=== PATIENT | male | born 1990 | race Two or more races ===

== ENCOUNTER 2021-04-19 23:41 | Inpatient (IN) | payer OTHER, SELFPAY ==
--- NOTE | ~2021-04-19 | XR_ITS ---
EXAMINATION: XR CHEST CLINICAL INFORMATION: Chest pain COMPARISON: Previous chest x-ray most recent December 2018 TECHNIQUE: 2 views of the chest were obtained. FINDINGS: No significant abnormality is noted involving the heart, lungs, mediastinum, bony thorax or soft tissues. XR/XR chest 2V IMPRESSION: Unremarkable examination.
[2021-04-20] MEDS: hydrOXYzine HCL 25 MG TABLET PO ×2 (01:38→11:57)
[2021-04-20] MEDS: Nicotine Polacrilex 2 MG GUM 4 MG BUCCAL ×4 (01:41→14:50)
--- NOTE | 2021-04-20 02:55 | PC.ADMIT ---
30 year old male arrived at 23:50 via stretcher from [facility] on a CV with suicidal ideation to walk into traffic. History of polysubstance abuse, major depression disorder, PTSD. 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 So now I find myself self-medicating and I need to fix my medications so I don't keep doing this. Patient reports increased depression over the past week relating to recent relapse on substances (cocaine, heroin). Stressors include chronic command auditory hallucinations, unstable housing, legal issues, trauma flashbacks, COVID-19 and of mother in 2019 (while patient was incarcerated). He is on methadone maintenance, 35mg, last dosed 04/19/21 per crisis report. Admission and medication orders in place. Safety checks initiated, will continue to monitor.
[2021-04-20 06:00] VITALS: BP 124/77; PULSE 65; RESP 18; TEMP 36.8; O2SAT 100
[2021-04-20] MEDS: Gabapentin 600 MG TABLET PO ×2 (14:49→21:30)
[2021-04-20] MEDS: cloNIDine HCL 0.1 MG TABLET PO ×2 (14:49→21:31)
[2021-04-20] MEDS: methADONE HCl 20 MG/2 ML ORAL.CONC 35 MG PO (15:13)
[2021-04-20] MEDS: Amphetamine Mixed Salts 10 MG TABLET PO (15:13)
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
[2021-04-20 18:00] VITALS: BP 110/68; PULSE 62; RESP 16; TEMP 36.6; O2SAT 100
[2021-04-20] MEDS: Nicotine Polacrilex 2 MG GUM BUCCAL (19:17)
[2021-04-20] MEDS: QUEtiapine Fumarate 50 MG TABLET PO (20:02)
[2021-04-20 21:31] VITALS: BP 109/69; PULSE 70
[2021-04-20] MEDS: QUEtiapine Fumarate 25 MG TABLET PO (21:31)
[2021-04-20] MEDS: Lithium Carbonate 300 MG CAPSULE PO (21:55)
--- NOTE | 2021-04-21 | ECG_ITS ---
Test Reason : detox/atypical use Blood Pressure : / mmHG Vent. Rate : 051 BPM Atrial Rate : 051 BPM P-R Int : 172 ms QRS Dur : 088 ms QT Int : 430 ms P-R-T Axes : 027 010 020 degrees QTc Int : 396 ms Sinus bradycardia Early repolarization Otherwise normal ECG When compared with ECG of 09-DEC-2018 09:49, T wave amplitude has increased in Anterior leads Referred By: Lu Rebolledo Electronically Signed By:MICHELLE BURNETT
--- NOTE | 2021-04-21 | ECG_ITS ---
Test Reason : CHEST PAIN Blood Pressure : / mmHG Vent. Rate : 048 BPM Atrial Rate : 048 BPM P-R Int : 138 ms QRS Dur : 084 ms QT Int : 414 ms P-R-T Axes : 033 000 015 degrees QTc Int : 369 ms Sinus bradycardia Moderate voltage criteria for LVH, may be normal variant Borderline ECG When compared with ECG of 21-APR-2021 07:35, No significant change was found Referred By: Lu Rebolledo Electronically Signed By:MICHELLE BURNETT
[2021-04-21 06:00] VITALS: BP 92/52; PULSE 52; RESP 16; TEMP 36.1; O2SAT 98
[2021-04-21 08:55] LABS: Estimated Average Glucose 94 mg/dL; Hemoglobin A1c % 4.9 %
[2021-04-21 08:59] LABS: Lithium 0.16 mmol/L (0.60-1.20)
[2021-04-21] MEDS: methADONE HCl 20 MG/2 ML ORAL.CONC 40 MG PO (08:59)
[2021-04-21] MEDS: Lidocaine 4 % Patch ADH..PATCH 1 PATCH TRANSDERMA (09:01)
[2021-04-21] MEDS: Ergocalciferol (Vitamin D2) 1,250 MCG CAPSULE 1250 MCG PO (09:01)
[2021-04-21] MEDS: Lithium Carbonate 300 MG CAPSULE PO ×3 (09:02→22:07)
[2021-04-21] MEDS: Sertraline HCL 50 MG TABLET PO (09:02)
[2021-04-21 09:03] VITALS: BP 102/64; PULSE 62
[2021-04-21] MEDS: Gabapentin 600 MG TABLET PO ×3 (09:03→22:07)
[2021-04-21] MEDS: cloNIDine HCL 0.1 MG TABLET PO ×3 (09:03→22:07)
[2021-04-21] MEDS: Amphetamine Mixed Salts 10 MG TABLET PO ×2 (09:03→13:12)
[2021-04-21 09:09] LABS: Alanine Aminotransferase 22 U/L (0-40); Albumin Level 4.8 g/dL (3.5-5.0); Alkaline Phosphatase 112 U/L (39-117); Anion Gap 11 (12-20); Aspartate Amino Transferase 19 U/L (5-37); Bilirubin Total 0.5 mg/dL (0.0-1.0); Blood Urea Nitrogen 11 mg/dL (9-16); Calcium 10.6 mg/dL (8.4-10.2); Carbon Dioxide 31 mmol/L (22-29); Chloride 101 mmol/L (96-108); Cholesterol 245 mg/dL; Estimated Glomerular Filt Rate > 60; Glucose Random 92 mg/dL (60-115); HDL Cholesterol 41 mg/dL; LDL Cholesterol Calculated 165 mg/dl; Potassium 4.8 mmol/L (3.3-5.1); Sodium 138 mmol/L (135-145); Total Protein 7.9 g/dL (6.5-8.0); Triglycerides 199 mg/dL
[2021-04-21] MEDS: Nicotine Polacrilex 2 MG GUM 4 MG BUCCAL ×2 (09:14→13:12)
[2021-04-21 09:27] LABS: Thyroid Stimulating Hormone 1.77 uIU/mL (0.32-4.0); Vitamin D 25-OH Total 21.8 ng/mL (>30)
[2021-04-21 09:29] LABS: HBS Num1 40.53 mIU/mL (0-7.99); HBc Num1 0.11 S/CO (0.00-0.79); HBsAGNum1 0.21 S/CO (0.00-0.99); HIV AB/AG Nonreactive (Nonreactive); Hepatitis B Core Antibody Nonreactive (Nonreactive); Hepatitis B Surface Antigen Negative (Negative); ~HepC Num1 0.16 S/CO (0.00-0.79); ~Hepatitis B Surface Antibody REACTIVE (Nonreactive); ~Hepatitis C Antibody Nonreactive (Nonreactive)
[2021-04-21 11:11] LABS: Folate 11.8 ng/mL (> or = 4.0); Vitamin B12 534 pg/mL (200-900)
[2021-04-21 14:51] VITALS: BP 107/60; PULSE 76
--- NOTE | 2021-04-21 16:14 | P.PNPSI_ITS ---
Subjective Subjective Date of Service: 04/21/21 Reason For Visit: Bipolar Disorder, ADHD, PTSD, Opioid, Cocaine use Subjective Notes: Conditional Voluntary Healthcare Proxy: No Guardianship: No Medical Problems Affecting Mental Status: No Interim History: Tolerating Methadone titration. Reports some improvement in sleep with increase in Seroquel. Discussed some of his addiction history and his goals for the future. Review of medication regime- will continue current regime. Medication Compliance: Yes Side effects from medications: No Attending Groups: Yes Review of Systems Acute medical concerns: No Medical Review of Systems: unchanged Review of Systems Review of Systems Yes all other systems are reviewed and are negative Constitutional: Reports anorexia, Reports difficulty sleeping and Reports weight loss Eyes: Reports no additional eye complaints Reports system reviewed and no additional complaints, except as documented and Reports Normal hearing present Cardiovascular: Reports no additional cardiovascular complaints Respiratory: Reports no additional respiratory complaints Gastrointestinal: Reports no additional gastrointestinal complaints Genitourinary: Reports no additional male genitourinary complaints Musculoskeletal: Reports no additional musculoskeletal complaints Reports system reviewed and no additional complaints, except as documented, Reports Normal hearing present and Reports behavioral changes Psychiatric: Reports abnormal sleep pattern, Reports anxiety, Reports behavioral changes, Reports change in appetite, Reports depression, Reports difficulty concentrating, Reports auditory hallucinations, Reports hopelessness, Reports irritability, Reports anhedonia, Reports mood swings, Reports panic attacks and Reports suicidal ideation Endocrine: Reports no additional endocrine complaints Hematologic/Lymphatic: Reports no additional hematologic/lymphatic complaints Allergic/Immunologic: Reports no additional allergic/immunologic complaints Mental Status Exam Mental Status Exam Patient Appearance: Appropriate Patient Orientation: Person, Place, Time and Situation Level of Consciousness: Appropriate and Alert Patient Behavior: Appropriate, Talkative, Cooperative and Good Eye Contact Mood Description: Depressed, Fearful and Anxious Affect Description: Flat Patient Cognition Impaired: No Ability to Follow Directions: Good Speech Pattern: Clear, Appropriate and Spontaneous Speech Memory Description: Episodic Impaired Hallucinations: Auditory Delusions: Paranoid Ideation and Present Perceptual Disturbances: Depersonalization and Derealization Thought Process: Distracted and Rumination Thought Content: positive for Perseveration and positive for Suicidal Ideation Depressive Symptoms: Increased Anxiety, Insomnia, Diff. Making Decisions, Di fficulty Sleeping, Changes in Appetite, Feelings of Worthlessness, Hopelessness, Isolating-Friends/Family, Increased Fatigue, Thoughts of /Suicide, Loss of Energy and Difficulty Concentrating Judgement: Fair Diagnostics Vital Signs (24Hr): Vital Signs - 24 hr 04/20/21 18:00 04/20/21 21:31 04/21/21 06:00 Temperature 98 F 97 F Pulse Rate 62 70 52 Respiratory Rate 16 16 Blood Pressure 110/68 109/69 92/52 L Pulse Oximetry 100 98 04/21/21 09:03 04/21/21 14:51 Temperature Pulse Rate 62 76 Respiratory Rate Blood Pressure 102/64 107/60 Pulse Oximetry Labs Results: 04/21/21 17:52 04/21/21 08:09 Labs: Laboratory Results - last 48 hr 04/21/21 04/21/21 04/21/21 08:08 08:08 08:08 Sodium Potassium Chloride Carbon Dioxide Anion Gap BUN Creatinine Estim Creat Clear Calc Estimated GFR Random Glucose Estimat Average Glucose 94 Hemoglobin A1c % 4.9 Calcium Total Bilirubin AST ALT Alkaline Phosphatase Total Protein Albumin Triglycerides Cholesterol LDL Cholesterol, Calc HDL Cholesterol Vitamin B12 534 25-OH Vitamin D Total Folate 11.8 TSH [place] [facility] Hep Bs Antigen Negative Hep Bs Antibody REACTIVE Hep B Core Total Ab Nonreactive Hepatitis C Ab (EIA) Nonreactive HIV 1&2 Ab/P24 Ag 4thGn Nonreactive 04/21/21 04/21/21 08:09 08:09 Sodium 138 Potassium 4.8 Chloride 101 Carbon Dioxide 31 H Anion Gap 11 L BUN 11 Creatinine 0.83 Estim Creat Clear Calc TNP Estimated GFR > 60 Random Glucose 92 Estimat Average Glucose Hemoglobin A1c % Calcium 10.6 H Total Bilirubin 0.5 AST 19 ALT 22 Alkaline Phosphatase 112 Total Protein 7.9 Albumin 4.8 Triglycerides 199 Cholesterol 245 LDL Cholesterol, Calc 165 HDL Cholesterol 41 Vitamin B12 25-OH Vitamin D Total 21.8 Folate TSH 1.77 [place] [facility] 0.16 L Hep Bs Antigen Hep Bs Antibody Hep B Core Total Ab Hepatitis C Ab (EIA) HIV 1&2 Ab/P24 Ag 4thGn Medications Medications Current Medications Generic Name Dose Route Start Last Admin Trade Name Freq PRN Reason Stop Dose Admin Acetaminophen 650 mg 04/20/21 00:53 Acetaminophen 325 Mg Tablet PO Q6H PRN Headache/Pain Mild Scale (1-3) Al Hydroxide/Mg Hydroxide 30 ml 04/20/21 00:53 Magnesium Hydrox/Alum Hydrox 30 Ml Oral.Susp PO Q6H PRN Heartburn/Nausea Amphetamine/Dextroamphetamine 10 mg 04/21/21 08:00 04/21/21 13:12 Amphetamine Mixed Salts 10 Mg Tablet PO 10 mg 0800,1300 RYAN Administration Clonidine HCl 0.1 mg 04/20/21 15:00 04/21/21 14:51 Clonidine Hcl 0.1 Mg Tablet PO 0.1 mg TID RYAN Administration Protocol Dicyclomine HCl 10 mg 04/20/21 13:32 Dicyclomine Hcl 10 Mg Capsule PO TIDAC PRN withdrawl Ergocalciferol 1,250 mcg 04/21/21 09:00 04/21/21 09:01 Ergocalciferol (Vitamin D2) 1,250 Mcg Capsule PO 1,250 mcg Th@0900 RYAN Administration Gabapentin 600 mg 04/20/21 15:00 04/21/21 14:40 Gabapentin 600 Mg Tablet PO 600 mg TID RYAN Administration Hydroxyzine HCl 25 mg 04/20/21 00:53 04/20/21 11:57 Hydroxyzine Hcl 25 Mg Tablet PO 25 mg Q6H PRN Administration Anxiety Lidocaine 1 patch 04/21/21 09:00 04/21/21 09:01 Lidocaine 4 % Patch Adh..Patch TRANSDERMA 1 patch DAILY RYAN Administration Protocol [place] [facility] Carbonate 300 mg 04/20/21 21:00 04/21/21 14:39 [place] [facility] Carbonate 300 Mg Capsule PO 300 mg TID RYAN Administration Magnesium Hydroxide 30 ml 04/20/21 00:53 Milk Of Magnesia 30 Ml Oral.Susp PO DAILY PRN Constipation Nicotine 21 mg 04/20/21 09:00 04/21/21 09:05 Nicotine 21 Mg Patch.Td24 TRANSDERMA Not Given DAILY RYAN Nicotine Polacrilex 4 mg 04/20/21 00:53 04/21/21 13:12 Nicotine Polacrilex 2 Mg Gum BUCCAL 4 mg Q2H PRN Administration Nicotine Cravings Nicotine Polacrilex 2 mg 04/20/21 16:45 04/20/21 19:17 Nicotine Polacrilex 2 Mg Gum BUCCAL 2 mg Q1H PRN Administration Nicotine Cravings Quetiapine Fumarate 25 mg 04/20/21 21:00 04/20/21 21:31 Quetiapine Fumarate 25 Mg Tablet PO 25 mg BEDTIME RYAN Administration Quetiapine Fumarate 50 mg 04/20/21 21:00 04/20/21 20:02 Quetiapine Fumarate 50 Mg Tablet PO 50 mg BEDTIME RYAN Administration Quetiapine Fumarate 25 mg 04/20/21 19:50 Quetiapine Fumarate 25 Mg Tablet PO Q4H PRN anxiety/restlessness Sertraline HCl 50 mg 04/21/21 09:00 04/21/21 09:02 Sertraline Hcl 50 Mg Tablet PO 50 mg DAILY RYAN Administration Trazodone HCl 50 mg 04/20/21 00:53 Trazodone Hcl 50 Mg Tablet PO BEDTIME PRN Insomnia Trolamine Salicylate/Aloe Vera 1 appl 04/20/21 17:13 Trolamine Salicylate 10%/Aloe Cream 35.4 Gm TOPICAL TID PRN joint pain Valacyclovir HCl 500 mg 04/21/21 09:00 04/21/21 09:03 Valacycyclovir Hcl 500 Mg Tablet PO 500 mg DAILY RYAN Administration Allergies Allergies Allergy/AdvReac Type Severity Reaction Status Date / Time aspirin [ASA] AdvReac Unknown ABD UPSET Unverified 04/22/20 16:04 Assessment & Plan Assessment & Plan (1) Bipolar disorder: Status: Acute Code(s): F31.9 - Bipolar disorder, unspecified (2) PTSD (post-traumatic stress disorder): Status: Acute Code(s): F43.10 - Post-traumatic stress disorder, unspecified (3) Opioid use disorder, severe, in early remission, on maintenance therapy: Status: Acute Code(s): F11.21 - Opioid dependence, in remission (4) Cocaine use disorder: Status: Acute Code(s): F14.10 - Cocaine abuse, uncomplicated (5) ADHD: Status: Acute Code(s): F90.9 - Attention-deficit hyperactivity disorder, unspecified type Assessment and Plan: Continue current regime [place] [facility] level is low-continue titration. Greater than 50% of the session was spent on counseling and/or coordination of care Patient educated on: medication risk/benefits and therapeutic strategies Informed Consent: understands Reason for contiued inpatient stay Substantial Risk for: harm to self, inability to function and rapid decompensation
[2021-04-21 17:57] LABS: MANUAL DIFF FLAG NO
[2021-04-21] MEDS: OLANZapine 5 MG TABLET PO (17:59)
[2021-04-21] MEDS: Nicotine Polacrilex 2 MG GUM BUCCAL (17:59)
[2021-04-21 18:00] VITALS: BP 116/67; PULSE 59; RESP 16; TEMP 36.3
[2021-04-21] MEDS: LORazepam 1 MG TABLET PO (18:01)
[2021-04-21 22:07] VITALS: BP 112/56; PULSE 59
[2021-04-21] MEDS: QUEtiapine Fumarate 50 MG TABLET PO (22:07)
[2021-04-22 00:45] LABS: Basophils Absolute Auto 0.1 X10*3/uL (0.0-0.2); Basophils Percent Auto 0.9 % (0-2); Eosinophils Absolute Auto 0.3 X10*3/uL (0.0-0.4); Eosinophils Percent Auto 4.5 % (0-4); Hematocrit 44.5 % (42-52); Imm Gran Abs Auto 0.01 X10*3/uL (0.00-0.03); Imm Gran Pct Auto 0.2 % (0.0-0.4); Lymphocytes Absolute Auto 1.7 X10*3/uL (1.2-4.9); Lymphocytes Percent Auto 29.1 % (20-40); Mean Corpuscular HGB Conc 31.5 g/dl (31.0-36.0); Mean Corpuscular Hemoglobin 29.9 pg (27.0-33.0); Mean Corpuscular Volume 94.9 fL (80-98); Mean Platelet Volume 11.2 fL (9.4-12.4); Monocytes Absolute Auto 0.3 X10*3/uL (0.1-1.2); Monocytes Percent Auto 5.4 % (2-11); Neutrophils Absolute Auto 3.4 X10*3/uL (2.0-8.3); Neutrophils Percent Auto 59.9 % (45-73); Platelet Count 272 X10*3/uL (160-400); Red Blood Count 4.69 X10*6/uL (4.60-5.80); Red Cell Distribution Width 13.7 % (11.0-16.0); White Blood Count 5.7 X10*3/uL (4.8-10.8)
[2021-04-22 06:00] VITALS: BP 168/97; PULSE 73; RESP 16; TEMP 36.5; O2SAT 98
[2021-04-22] MEDS: Amphetamine Mixed Salts 10 MG TABLET PO ×2 (08:21→12:44)
[2021-04-22] MEDS: Sertraline HCL 50 MG TABLET PO (08:21)
[2021-04-22] MEDS: Gabapentin 600 MG TABLET PO ×3 (08:21→20:04)
[2021-04-22] MEDS: Lithium Carbonate 300 MG CAPSULE PO ×3 (08:21→20:04)
[2021-04-22] MEDS: Lidocaine 4 % Patch ADH..PATCH 1 PATCH TRANSDERMA (08:22)
[2021-04-22] MEDS: Nicotine 21 MG PATCH.TD24 TRANSDERMA (08:22)
[2021-04-22 08:44] VITALS: BP 88/58; PULSE 62
--- NOTE | 2021-04-22 09:06 | P.PNPSI_ITS ---
Subjective Subjective Date of Service: 04/23/21 Reason For Visit: Bipolar Disorder, ADHD, PTSD, Opioid, Cocaine use Subjective Notes: Conditional Voluntary Healthcare Proxy: No Guardianship: No Medical Problems Affecting Mental Status: No Interim History: Review of anxiety increase on 04/21. Pt describes shaking, sweating, fidgety feeling, anxiety, like all things were coming to a head. Rep orts Olanzapine was helpful-no thoughts on a possible precipitant to this sx. Reports sleep is improving. Discussed possiblity of replacing Seroquel with Olanzapine for increased efficacy during [place] titration. Pt concurs and we will trial. Medication Compliance: Yes Side effects from medications: No Attending Groups: Yes Review of Systems Acute medical concerns: No Medical Review of Systems: unchanged Review of Systems Review of Systems Yes all other systems are reviewed and are negative Constitutional: Reports anorexia, Reports difficulty sleeping and Reports weight loss Eyes: Reports no additional eye complaints Reports system reviewed and no additional complaints, except as documented and Reports Normal hearing present Cardiovascular: Reports no additional cardiovascular complaints Respiratory: Reports no additional respiratory complaints Gastrointestinal: Reports no additional gastrointestinal complaints Genitourinary: Reports no additional male genitourinary complaints Musculoskeletal: Reports no additional musculoskeletal complaints Reports system reviewed and no additional complaints, except as documented, Reports Normal hearing present and Reports behavioral changes Psychiatric: Reports abnormal sleep pattern, Reports anxiety, Reports behavioral changes, Reports change in appetite, Reports depression, Reports difficulty concentrating, Reports auditory hallucinations, Reports hopelessness, Reports irritability, Reports anhedonia, Reports mood swings, Reports panic attacks and Reports suicidal ideation Endocrine: Reports no additional endocrine complaints Hematologic/Lymphatic: Reports no additional hematologic/lymphatic complaints Allergic/Immunologic: Reports no additional allergic/immunologic complaints Mental Status Exam Mental Status Exam Patient Appearance: Appropriate Patient Orientation: Person, Place, Time and Situation Level of Consciousness: Appropriate and Alert Patient Behavior: Appropriate, Talkative, Cooperative and Good Eye Contact Mood Description: Depressed, Fearful and Anxious Affect Description: Flat Patient Cognition Impaired: No Ability to Follow Directions: Good Speech Pattern: Clear, Appropriate and Spontaneous Speech Memory Description: Episodic Impaired Hallucinations: Auditory Delusions: Paranoid Ideation and Present Perceptual Disturbances: Depersonalization and Derealization Thought Process: Distracted and Rumination Thought Content: positive for Perseveration and positive for Suicidal Ideation Depressive Symptoms: Increased Anxiety, Insomnia, Diff. Making Decisions, Difficulty Sleeping, Changes in Appetite, Feelings of Worthlessness, Hopelessness, Isolating-Friends/Family, Increased Fatigue, Thoughts of De ath/Suicide, Loss of Energy and Difficulty Concentrating Judgement: Fair Diagnostics Vital Signs (24Hr): Vital Signs - 24 hr 04/21/21 14:51 04/21/21 18:00 04/21/21 22:07 Temperature 97.3 F Pulse Rate 76 59 59 Respiratory Rate 16 Blood Pressure 107/60 116/67 112/56 L Pulse Oximetry 04/22/21 06:00 04/22/21 08:44 Temperature 97.7 F Pulse Rate 73 62 Respiratory Rate 16 Blood Pressure 168/97 H 88/58 L Pulse Oximetry 98 Labs Results: 04/21/21 17:52 04/21/21 08:09 Labs: Laboratory Results - last 48 hr 04/21/21 04/21/21 04/21/21 08:08 08:08 08:08 WBC RBC Hgb Hct MCV MCH MCHC RDW Plt Count MPV Immature Gran % (Auto) Neut % (Auto) Lymph % (Auto) [place] % (Auto) Eos % (Auto) Baso % (Auto) Lymph # (Auto) [place] # (Auto) Eos # (Auto) Baso # (Auto) Abs Immat Gran (auto) Absolute Neuts (auto) Absolute Nucleated RBC Nucleated RBC % (auto) Sodium Potassium Chloride Carbon Dioxide Anion Gap BUN Creatinine Estim Creat Clear Calc Estimated GFR Random Glucose Estimat Average Glucose 94 Hemoglobin A1c % 4.9 Calcium Total Bilirubin AST ALT Alkaline Phosphatase Total Creatine Kinase Total Protein Albumin Triglycerides Cholesterol LDL Cholesterol, Calc HDL Cholesterol Vitamin B12 534 25-OH Vitamin D Total Folate 11.8 TSH [place] Hep Bs Antigen Negative Hep Bs Antibody REACTIVE Hep B Core Total Ab Nonreactive Hepatitis C Ab (EIA) Nonreactive HIV 1&2 Ab/P24 Ag 4thGn Nonreactive 04/21/21 04/21/21 04/21/21 08:09 08:09 17:52 WBC 5.7 RBC 4.69 Hgb 14.0 Hct 44.5 MCV 94.9 MCH 29.9 MCHC 31.5 RDW 13.7 Plt Count 272 MPV 11.2 Immature Gran % (Auto) 0.2 Neut % (Auto) 59.9 Lymph % (Auto) 29.1 [place] % (Auto) 5.4 Eos % (Auto) 4.5 H Baso % (Auto) 0.9 Lymph # (Auto) 1.7 [place] # (Auto) 0.3 Eos # (Auto) 0.3 Baso # (Auto) 0.1 Abs Immat Gran (auto) 0.01 Absolute Neuts (auto) 3.4 Absolute Nucleated RBC 0.000 Nucleated RBC % (auto) 0.0 Sodium 138 Potassium 4.8 Chloride 101 Carbon Dioxide 31 H Anion Gap 11 L BUN 11 Creatinine 0.83 Estim Creat Clear Calc TNP Estimated GFR > 60 Random Glucose 92 Estimat Average Glucose Hemoglobin A1c % Calcium 10.6 H Total Bilirubin 0.5 AST 19 ALT 22 Alkaline Phosphatase 112 Total Creatine Kinase Total Protein 7.9 Albumin 4.8 Triglycerides 199 Cholesterol 245 LDL Cholesterol, Calc 165 HDL Cholesterol 41 Vitamin B12 25-OH Vitamin D Total 21.8 Folate TSH 1.77 [place] 0.16 L Hep Bs Antigen Hep Bs Antibody Hep B Core Total Ab Hepatitis C Ab (EIA) HIV 1&2 Ab/P24 Ag 4thGn 04/21/21 17:52 WBC RBC Hgb Hct MCV MCH MCHC RDW Plt Count MPV Immature Gran % (Auto) Neut % (Auto) Lymph % (Auto) [place] % (Auto) Eos % (Auto) Baso % (Auto) Lymph # (Auto) [place] # (Auto) Eos # (Auto) Baso # (Auto) Abs Immat Gran (auto) Absolute Neuts (auto) Absolute Nucleated RBC Nucleated RBC % (auto) Sodium Potassium Chloride Carbon Dioxide Anion Gap BUN Creatinine Estim Creat Clear Calc Estimated GFR Random Glucose Estimat Average Glucose Hemoglobin A1c % Calcium Total Bilirubin AST ALT Alkaline Phosphatase Total Creatine Kinase 62 Total Protein Albumin Triglycerides Cholesterol LDL Cholesterol, Calc HDL Cholesterol Vitamin B12 25-OH Vitamin D Total Folate TSH [place] Hep Bs Antigen Hep Bs Antibody Hep B Core Total Ab Hepatitis C Ab (EIA) HIV 1&2 Ab/P24 Ag 4thGn Medications Medications Current Medications Generic Name Dose Route Start Last Admin Trade Name Freq PRN Reason Stop Dose Admin Acetaminophen 650 mg 04/20/21 00:53 Acetaminophen 325 Mg Tablet PO Q6H PRN Headache/Pain Mild Scale (1-3) Al Hydroxide/Mg Hydroxide 30 ml 04/20/21 00:53 Magnesium Hydrox/Alum Hydrox 30 Ml Oral.Susp PO Q6H PRN Heartburn/Nausea Amphetamine/Dextroamphetamine 10 mg 04/21/21 08:00 04/22/21 08:21 Amphetamine Mixed Salts 10 Mg Tablet PO 10 mg 0800,1300 RYAN Administration Clonidine HCl 0.1 mg 04/20/21 15:00 04/22/21 08:44 Clonidine Hcl 0.1 Mg Tablet PO Not Given TID RYAN Protocol Dicyclomine HCl 10 mg 04/20/21 13:32 Dicyclomine Hcl 10 Mg Capsule PO TIDAC PRN withdrawl Ergocalciferol 1,250 mcg 04/21/21 09:00 04/21/21 09:01 Ergocalciferol (Vitamin D2) 1,250 Mcg Capsule PO 1,250 mcg Th@0900 RYAN Administration Gabapentin 600 mg 04/20/21 15:00 04/22/21 08:21 Gabapentin 600 Mg Tablet PO 600 mg TID RYAN Administration Hydroxyzine HCl 25 mg 04/20/21 00:53 04/20/21 11:57 Hydroxyzine Hcl 25 Mg Tablet PO 25 mg Q6H PRN Administration Anxiety Lidocaine 1 patch 04/21/21 09:00 04/22/21 08:22 Lidocaine 4 % Patch Adh..Patch TRANSDERMA 1 patch DAILY RYAN Administration Protocol [place] Carbonate 300 mg 04/20/21 21:00 04/22/21 08:21 [place] Carbonate 300 Mg Capsule PO 300 mg TID RYAN Administration Magnesium Hydroxide 30 ml 04/20/21 00:53 Milk Of Magnesia 30 Ml Oral.Susp PO DAILY PRN Constipation Methadone HCl 40 mg 04/23/21 09:00 Methadone Hcl 20 Mg/2 Ml Oral.Conc PO 04/23/21 09:01 DAILY RYAN Methadone HCl 45 mg 04/24/21 09:00 Methadone Hcl 20 Mg/2 Ml Oral.Conc PO DAILY RYAN Nicotine 21 mg 04/20/21 09:00 04/22/21 08:22 Nicotine 21 Mg Patch.Td24 TRANSDERMA 21 mg DAILY RYAN Administration Nicotine Polacrilex 4 mg 04/20/21 00:53 04/21/21 13:12 Nicotine Polacrilex 2 Mg Gum BUCCAL 4 mg Q2H PRN Administration Nicotine Cravings Nicotine Polacrilex 2 mg 04/20/21 16:45 04/21/21 17:59 Nicotine Polacrilex 2 Mg Gum BUCCAL 2 mg Q1H PRN Administration Nicotine Cravings Quetiapine Fumarate 50 mg 04/20/21 21:00 04/21/21 22:07 Quetiapine Fumarate 50 Mg Tablet PO 50 mg BEDTIME RYAN Administration Quetiapine Fumarate 25 mg 04/20/21 19:50 Quetiapine Fumarate 25 Mg Tablet PO Q4H PRN anxiety/restlessness Sertraline HCl 50 mg 04/21/21 09:00 04/22/21 08:21 Sertraline Hcl 50 Mg Tablet PO 50 mg DAILY RYAN Administration Trazodone HCl 50 mg 04/20/21 00:53 Trazodone Hcl 50 Mg Tablet PO BEDTIME PRN Insomnia Trolamine Salicylate/Aloe Vera 1 appl 04/20/21 17:13 Trolamine Salicylate 10%/Aloe Cream 35.4 Gm TOPICAL TID PRN joint pain Valacyclovir HCl 500 mg 04/21/21 09:00 04/22/21 08:21 Valacycyclovir Hcl 500 Mg Tablet PO 500 mg DAILY RYAN Administration Allergies Allergies Allergy/AdvReac Type Severity Reaction Status Date / Time aspirin [ASA] AdvReac Unknown ABD UPSET Unverified 04/22/20 16:04 Assessment & Plan Assessment & Plan (1) Bipolar disorder: Status: Acute Code(s): F31.9 - Bipolar disorder, unspecified (2) PTSD (post-traumatic stress disorder): Status: Acute Code(s): F43.10 - Post-traumatic stress disorder, unspecified (3) Opioid use disorder, severe, in early remission, on maintenance therapy: Status: Acute Code(s): F11.21 - Opioid dependence, in remission (4) Cocaine use disorder: Status: Acute Code(s): F14.10 - Cocaine abuse, uncomplicated (5) ADHD: Status: Acute Code(s): F90.9 - Attention-deficit hyperactivity disorder, unspecified type Assessment and Plan: Discontinue Seroquel Olanzapine 5 mg hs and prn Lorazepam prn Greater than 50% of the session was spent on counseling and/or coordination of care Patient educated on: medication risk/benefits, substance abuse and therapeutic strategies Informed Consent: understands and further education needed Reason for contiued inpatient stay Substantial Risk for: harm to self, inability to function and rapid decompensation
[2021-04-22] MEDS: methADONE HCl 20 MG/2 ML ORAL.CONC 40 MG PO (09:34)
--- NOTE | 2021-04-22 11:35 | MHC.RECOVSUP ---
? Reason for consult:Continuity of care o Current location:511 o Identified substance use concern: Heroin - Withdrawal - Support ? Intervention: o MAT started or to be started o Community resources provided o Harm reduction discussion ? Plan: o Patient to follow up with [facility] after discharge ? Additional information:Pt. given community resources, had a discussion on Harm reduction and MAT. PT. on MAT (Methadone) from [facility], pt. referred to [facility].
[2021-04-22 14:39] VITALS: BP 90/62; PULSE 70
[2021-04-22] MEDS: cloNIDine HCL 0.1 MG TABLET PO (14:39)
[2021-04-22] MEDS: LORazepam 1 MG TABLET PO (16:46)
[2021-04-22] MEDS: OLANZapine 5 MG TABLET PO ×2 (16:46→20:04)
[2021-04-22] MEDS: Nicotine Polacrilex 2 MG GUM BUCCAL (16:48)
[2021-04-22 18:27] VITALS: BP 100/55; PULSE 67; TEMP 36.6
[2021-04-23 06:00] VITALS: BP 110/58; PULSE 54; RESP 18; TEMP 35.8; O2SAT 99
[2021-04-23] MEDS: Nicotine 21 MG PATCH.TD24 TRANSDERMA (08:28)
[2021-04-23] MEDS: Lidocaine 4 % Patch ADH..PATCH 1 PATCH TRANSDERMA (08:28)
[2021-04-23 08:29] VITALS: BP 92/64; PULSE 62
[2021-04-23] MEDS: Lithium Carbonate 300 MG CAPSULE PO ×3 (08:29→20:29)
[2021-04-23] MEDS: Amphetamine Mixed Salts 10 MG TABLET PO ×2 (08:29→14:02)
[2021-04-23] MEDS: Sertraline HCL 50 MG TABLET PO (08:29)
[2021-04-23] MEDS: Gabapentin 600 MG TABLET PO ×3 (08:29→20:29)
[2021-04-23] MEDS: cloNIDine HCL 0.1 MG TABLET PO ×2 (08:29→14:03)
[2021-04-23] MEDS: methADONE HCl 20 MG/2 ML ORAL.CONC 40 MG PO (08:34)
--- NOTE | 2021-04-23 09:45 | P.PNPSI_ITS ---
Subjective Subjective Date of Service: 04/23/21 Reason For Visit: Bipolar Disorder, ADHD, PTSD, Opioid, Cocaine use Interim History: pt seen on 04/23 pt reports he's depressed with SI; he does not have plans or intentions but tears up talking about it. Pt says he hopes the new medications will start working soon as it's only been 2.5 days since on lithium. PT says the acuity on the unit is getting to him which he thinks influences his mood Mental Status Exam Mental Status Exam Patient Appearance: Well Grooomed Patient Orientation: Person, Place, Time and Situation Level of Consciousness: Awake and Appropriate Patient Behavior: Appropriate, Talkative and Cooperative Mood Description: Depressed and Anxious Affect Description: Anxious Ability to Follow Directions: Fair Speech Pattern: Clear and Appropriate Hallucinations: Auditory (intermittent) Delusions: Not Present Thought Process: Goal Oriented (can also be circumstantial) Thought Content: positive for Suicidal Ideation Judgement: Fair Diagnostics Vital Signs (24Hr): Vital Signs - 24 hr 04/22/21 14:39 04/22/21 18:27 04/23/21 06:00 Temperature 98 F 96.5 F L Pulse Rate 70 67 54 Respiratory Rate 18 Blood Pressure 90/62 100/55 L 110/58 L Pulse Oximetry 99 04/23/21 08:29 Temperature Pulse Rate 62 Respiratory Rate Blood Pressure 92/64 Pulse Oximetry Labs Results: 04/21/21 17:52 04/21/21 08:09 Labs: Laboratory Results - last 48 hr 04/21/21 04/21/21 04/21/21 08:08 08:08 17:52 WBC 5.7 RBC 4.69 Hgb 14.0 Hct 44.5 MCV 94.9 MCH 29.9 MCHC 31.5 RDW 13.7 Plt Count 272 MPV 11.2 Immature Gran % (Auto) 0.2 Neut % (Auto) 59.9 Lymph % (Auto) 29.1 [place] % (Auto) 5.4 Eos % (Auto) 4.5 H Baso % (Auto) 0.9 Lymph # (Auto) 1.7 [place] # (Auto) 0.3 Eos # (Auto) 0.3 Baso # (Auto) 0.1 Abs Immat Gran (auto) 0.01 Absolute Neuts (auto) 3.4 Absolute Nucleated RBC 0.000 Nucleated RBC % (auto) 0.0 Total Creatine Kinase Vitamin B12 534 Folate 11.8 Hep Bs Antigen Negative Hep Bs Antibody REACTIVE Hep B Core Total Ab Nonreactive Hepatitis C Ab (EIA) Nonreactive HIV 1&2 Ab/P24 Ag 4thGn Nonreactive 04/21/21 17:52 WBC RBC Hgb Hct MCV MCH MCHC RDW Plt Count MPV Immature Gran % (Auto) Neut % (Auto) Lymph % (Auto) [place] % (Auto) Eos % (Auto) Baso % (Auto) Lymph # (Auto) [place] # (Auto) Eos # (Auto) Baso # (Auto) Abs Immat Gran (auto) Absolute Neuts (auto) Absolute Nucleated RBC Nucleated RBC % (auto) Total Creatine Kinase 62 Vitamin B12 Folate Hep Bs Antigen Hep Bs Antibody Hep B Core Total Ab Hepatitis C Ab (EIA) HIV 1&2 Ab/P24 Ag 4thGn Medications Medications Current Medications Acetaminophen (Acetaminophen 325 Mg Tablet) 650 mg PO Q6H PRN PRN Reason: Headache/Pain Mild Scale (1-3) Al Hydroxide/Mg Hydroxide (Magnesium Hydrox/Alum Hydrox 30 Ml Oral.Susp) 30 ml PO Q6H PRN PRN Reason: Heartburn/Nausea Amphetamine/Dextroamphetamine (Amphetamine Mixed Salts 10 Mg Tablet) 10 mg PO 0800,1300 [facility] Last Admin: 04/23/21 08:29 Dose: 10 mg Documented by: Clonidine HCl (Clonidine Hcl 0.1 Mg Tablet) 0.1 mg PO TID [facility]; Protocol Last Admin: 04/23/21 08:29 Dose: 0.1 mg Documented by: Dicyclomine HCl (Dicyclomine Hcl 10 Mg Capsule) 10 mg PO TIDAC PRN PRN Reason: withdrawl Ergocalciferol (Ergocalciferol (Vitamin D2) 1,250 Mcg Capsule) 1,250 mcg PO Th@0900 [facility] Last Admin: 04/21/21 09:01 Dose: 1,250 mcg Documented by: Gabapentin (Gabapentin 600 Mg Tablet) 600 mg PO TID [facility] Last Admin: 04/23/21 08:29 Dose: 600 mg Documented by: Hydroxyzine HCl (Hydroxyzine Hcl 25 Mg Tablet) 25 mg PO Q6H PRN PRN Reason: Anxiety Last Admin: 04/20/21 11:57 Dose: 25 mg Documented by: Lidocaine (Lidocaine 4 % Patch Adh..Patch) 1 patch TRANSDERMA DAILY [facility]; Protocol Last Admin: 04/23/21 08:28 Dose: 1 patch Documented by: [place] Carbonate ([place] Carbonate 300 Mg Capsule) 300 mg PO TID [facility] Last Admin: 04/23/21 08:29 Dose: 300 mg Documented by: Lorazepam (Lorazepam 1 Mg Tablet) 1 mg PO Q6H PRN PRN Reason: agitation, anxiety Last Admin: 04/22/21 16:46 Dose: 1 mg Documented by: Magnesium Hydroxide (Milk Of Magnesia 30 Ml Oral.Susp) 30 ml PO DAILY PRN PRN Reason: Constipation Methadone HCl (Methadone Hcl 20 Mg/2 Ml Oral.Conc) 45 mg PO DAILY [facility] Nicotine (Nicotine 21 Mg Patch.Td24) 21 mg TRANSDERMA DAILY [facility] Last Admin: 04/23/21 08:28 Dose: 21 mg Documented by: Nicotine Polacrilex (Nicotine Polacrilex 2 Mg Gum) 4 mg BUCCAL Q2H PRN PRN Reason: Nicotine Cravings Last Admin: 04/21/21 13:12 Dose: 4 mg Documented by: Nicotine Polacrilex (Nicotine Polacrilex 2 Mg Gum) 2 mg BUCCAL Q1H PRN PRN Reason: Nicotine Cravings Last Admin: 04/22/21 16:48 Dose: 2 mg Documented by: Olanzapine (Olanzapine 5 Mg Tablet) 5 mg PO BEDTIME [facility] Last Admin: 04/22/21 20:04 Dose: 5 mg Documented by: Olanzapine (Olanzapine 5 Mg Tablet) 5 mg PO Q6H PRN PRN Reason: agitation Last Admin: 04/22/21 16:46 Dose: 5 mg Documented by: Sertraline HCl (Sertraline Hcl 50 Mg Tablet) 50 mg PO DAILY [facility] Last Admin: 04/23/21 08:29 Dose: 50 mg Documented by: Trazodone HCl (Trazodone Hcl 50 Mg Tablet) 50 mg PO BEDTIME PRN PRN Reason: Insomnia Trolamine Salicylate/Aloe Vera (Trolamine Salicylate 10%/Aloe Cream 35.4 Gm) 1 appl TOPICAL TID PRN PRN Reason: joint pain Valacyclovir HCl (Valacycyclovir Hcl 500 Mg Tablet) 500 mg PO DAILY [facility] Last Admin: 04/23/21 08:29 Dose: 500 mg Documented by: Allergies Allergies Allergy/AdvReac Type Severity Reaction Status Date / Time aspirin [ASA] AdvReac Unknown ABD UPSET Unverified 04/22/20 16:04 Assessment & Plan Assessment & Plan (1) Bipolar disorder: Status: Acute Code(s): F31.9 - Bipolar disorder, unspecified (2) PTSD (post-traumatic stress disorder): Status: Acute Code(s): F43.10 - Post-traumatic stress disorder, unspecified (3) Opioid use disorder, severe, in early remission, on maintenance therapy: Status: Acute Code(s): F11.21 - Opioid dependence, in remission (4) Cocaine use disorder: Status: Acute Code(s): F14.10 - Cocaine abuse, uncomplicated (5) ADHD: Status: Acute Code(s): F90.9 - Attention-deficit hyperactivity disorder, unspecified type Assessment and Plan: 04/23 health science writer covering no changes to current tx plan Discontinue Seroquel Olanzapine 5 mg hs and prn Lorazepam prn Greater than 50% of the session was spent on counseling and/or coordination of care Reason for contiued inpatient stay Substantial Risk for: med/psych decompensation
[2021-04-23] MEDS: Nicotine Polacrilex 2 MG GUM 4 MG BUCCAL ×2 (09:46→18:43)
[2021-04-23] MEDS: LORazepam 1 MG TABLET PO ×2 (11:29→18:43)
[2021-04-23 14:03] VITALS: BP 98/64; PULSE 83
[2021-04-23] MEDS: OLANZapine 5 MG TABLET PO ×2 (16:19→20:30)
[2021-04-23] MEDS: Nicotine Polacrilex 2 MG GUM BUCCAL (16:20)
[2021-04-23 16:35] VITALS: BP 117/73; PULSE 64; TEMP 36.6
[2021-04-24] MEDS: LORazepam 1 MG TABLET PO ×3 (04:01→18:59)
[2021-04-24] MEDS: Nicotine Polacrilex 2 MG GUM BUCCAL (04:01)
[2021-04-24] MEDS: Nicotine Polacrilex 2 MG GUM 4 MG BUCCAL ×3 (05:03→13:42)
[2021-04-24 06:00] VITALS: BP 99/55; PULSE 60; RESP 16; TEMP 35.9; O2SAT 98
[2021-04-24] MEDS: Gabapentin 600 MG TABLET PO ×3 (08:14→21:32)
[2021-04-24] MEDS: Amphetamine Mixed Salts 10 MG TABLET PO ×2 (08:14→13:41)
[2021-04-24] MEDS: Sertraline HCL 50 MG TABLET PO (08:14)
[2021-04-24] MEDS: Lithium Carbonate 300 MG CAPSULE PO (08:14)
[2021-04-24] MEDS: Nicotine 21 MG PATCH.TD24 TRANSDERMA (08:14)
[2021-04-24] MEDS: Lidocaine 4 % Patch ADH..PATCH 1 PATCH TRANSDERMA (08:15)
[2021-04-24] MEDS: methADONE HCl 20 MG/2 ML ORAL.CONC 45 MG PO (08:19)
[2021-04-24 09:07] VITALS: BP 90/58; PULSE 62
--- NOTE | 2021-04-24 12:48 | HO.PSYCHPN ---
Subjective Subjective Date of Service: 04/24/21 Reason For Visit: Bipolar Disorder, ADHD, PTSD, Opioid, Cocaine use Interim History: pt reports he is still depressed with intermittent SI; he endorses intermittent sI but says they are currently gone. Pt also reports nightmares that relate to hx of trauma where he feels he's reliving it. Pt reports trouble sleeping and agrees to change [place] dosing to make more of it at bedtime. Mental Status Exam Mental Status Exam Narrative: Patient Appearance:?Well Grooomed Patient Orientation:?Person, Place, Time and Situation Level of Consciousness:?Awake and Appropriate Patient Behavior:?Appropriate, Talkative and Cooperative Mood Description:?Depressed and Anxious Affect Description:?Anxious Ability to Follow Directions:?Fair Speech Pattern:?Clear and Appropriate Hallucinations:?Auditory (intermittent) Delusions:?none Thought Process:?Goal Oriented (can also be circumstantial) Thought Content:?positive for Suicidal Ideation which is intermittent; no plans or intention; no HI Judgement:?Fair Diagnostics Vital Signs (24Hr): Vital Signs - 24 hr 04/23/21 14:03 04/23/21 16:35 04/24/21 06:00 Temperature 97.8 F 96.6 F L Pulse Rate 83 64 60 Respiratory Rate 16 Blood Pressure 98/64 117/73 99/55 L Pulse Oximetry 98 04/24/21 09:07 Temperature Pulse Rate 62 Respiratory Rate Blood Pressure 90/58 L Pulse Oximetry Labs Results: 04/21/21 17:52 04/21/21 08:09 Medications Medications Current Medications Acetaminophen (Acetaminophen 325 Mg Tablet) 650 mg PO Q6H PRN PRN Reason: Headache/Pain Mild Scale (1-3) Al Hydroxide/Mg Hydroxide (Magnesium Hydrox/Alum Hydrox 30 Ml Oral.Susp) 30 ml PO Q6H PRN PRN Reason: Heartburn/Nausea Amphetamine/Dextroamphetamine (Amphetamine Mixed Salts 10 Mg Tablet) 10 mg PO 0800,1300 [facility] Last Admin: 04/24/21 08:14 Dose: 10 mg Documented by: Clonidine HCl (Clonidine Hcl 0.1 Mg Tablet) 0.1 mg PO TID [facility]; Protocol Last Admin: 04/24/21 09:07 Dose: Not Given Documented by: Dicyclomine HCl (Dicyclomine Hcl 10 Mg Capsule) 10 mg PO TIDAC PRN PRN Reason: withdrawl Ergocalciferol (Ergocalciferol (Vitamin D2) 1,250 Mcg Capsule) 1,250 mcg PO Th@0900 [facility] Last Admin: 04/21/21 09:01 Dose: 1,250 mcg Documented by: Gabapentin (Gabapentin 600 Mg Tablet) 600 mg PO TID [facility] Last Admin: 04/24/21 08:14 Dose: 600 mg Documented by: Hydroxyzine HCl (Hydroxyzine Hcl 25 Mg Tablet) 25 mg PO Q6H PRN PRN Reason: Anxiety Last Admin: 04/20/21 11:57 Dose: 25 mg Documented by: Lidocaine (Lidocaine 4 % Patch Adh..Patch) 1 patch TRANSDERMA DAILY [facility]; Protocol Last Admin: 04/24/21 08:15 Dose: 1 patch Documented by: [place] Carbonate ([place] Carbonate 300 Mg Capsule) 300 mg PO DAILY [facility] [place] Carbonate ([place] Carbonate 300 Mg Capsule) 600 mg PO BEDTIME [facility] Lorazepam (Lorazepam 1 Mg Tablet) 1 mg PO Q6H PRN PRN Reason: agitation, anxiety Last Admin: 04/24/21 10:22 Dose: 1 mg Documented by: Magnesium Hydroxide (Milk Of Magnesia 30 Ml Oral.Susp) 30 ml PO DAILY PRN PRN Reason: Constipation Methadone HCl (Methadone Hcl 20 Mg/2 Ml Oral.Conc) 45 mg PO DAILY [facility] Last Admin: 04/24/21 08:19 Dose: 45 mg Documented by: Nicotine (Nicotine 21 Mg Patch.Td24) 21 mg TRANSDERMA DAILY [facility] Last Admin: 04/24/21 08:14 Dose: 21 mg Documented by: Nicotine Polacrilex (Nicotine Polacrilex 2 Mg Gum) 4 mg BUCCAL Q2H PRN PRN Reason: Nicotine Cravings Last Admin: 04/24/21 10:23 Dose: 4 mg Documented by: Nicotine Polacrilex (Nicotine Polacrilex 2 Mg Gum) 2 mg BUCCAL Q1H PRN PRN Reason: Nicotine Cravings Last Admin: 04/24/21 04:01 Dose: 2 mg Documented by: Olanzapine (Olanzapine 5 Mg Tablet) 5 mg PO BEDTIME [facility] Last Admin: 04/23/21 20:30 Dose: 5 mg Documented by: Olanzapine (Olanzapine 5 Mg Tablet) 5 mg PO Q6H PRN PRN Reason: agitation Last Admin: 04/23/21 16:19 Dose: 5 mg Documented by: Sertraline HCl (Sertraline Hcl 50 Mg Tablet) 50 mg PO DAILY [facility] Last Admin: 04/24/21 08:14 Dose: 50 mg Documented by: Trazodone HCl (Trazodone Hcl 50 Mg Tablet) 50 mg PO BEDTIME PRN PRN Reason: Insomnia Trolamine Salicylate/Aloe Vera (Trolamine Salicylate 10%/Aloe Cream 35.4 Gm) 1 appl TOPICAL TID PRN PRN Reason: joint pain Valacyclovir HCl (Valacycyclovir Hcl 500 Mg Tablet) 500 mg PO DAILY [facility] Last Admin: 04/24/21 08:14 Dose: 500 mg Documented by: Allergies Allergies Allergy/AdvReac Type Severity Reaction Status Date / Time aspirin [ASA] AdvReac Unknown ABD UPSET Unverified 04/22/20 16:04 Assessment & Plan Assessment & Plan (1) Bipolar disorder: Status: Acute Code(s): F31.9 - Bipolar disorder, unspecified (2) PTSD (post-traumatic stress disorder): Status: Acute Code(s): F43.10 - Post-traumatic stress disorder, unspecified (3) Opioid use disorder, severe, in early remission, on maintenance therapy: Status: Acute Code(s): F11.21 - Opioid dependence, in remission (4) Cocaine use disorder: Status: Acute Code(s): F14.10 - Cocaine abuse, uncomplicated (5) ADHD: Status: Acute Code(s): F90.9 - Attention-deficit hyperactivity disorder, unspecified type Assessment and Plan: 04/24 technical writer and editor covering changed lithium dosing to 300mg AM and 600mg pm to help with sleep BP too low to add Prazosin for nightmares; currently on clonidine TID scheduled, held for low BP (maybe due to methadone) Discontinue Seroquel Olanzapine 5 mg hs and prn Lorazepam prn Greater than 50% of the session was spent on counseling and/or coordination of care Reason for contiued inpatient stay Substantial Risk for: med/psych decompensation
--- NOTE | 2021-04-24 14:12 | PC.NURSE ---
pt got into verbal altercation with another psychotic male pt. bong only offered him pizza and the other pt started screaming at him because he called him by his name. bong quickly dissengaged.
[2021-04-24 14:31] VITALS: BP 92/58; PULSE 68
[2021-04-24 17:40] VITALS: BP 137/84; PULSE 88; TEMP 37.1
[2021-04-24] MEDS: OLANZapine 5 MG TABLET PO ×2 (18:59→21:32)
[2021-04-24 19:08] LABS: COVID-19 Test Negative (Negative); IDNOW Serial# 9DD0AD1C
[2021-04-24 21:32] VITALS: BP 120/70; PULSE 100
[2021-04-24] MEDS: Lithium Carbonate 300 MG CAPSULE 600 MG PO (21:32)
[2021-04-24] MEDS: cloNIDine HCL 0.1 MG TABLET PO (21:32)
--- NOTE | 2021-04-25 | ECG_ITS ---
Test Reason : chest pain Blood Pressure : / mmHG Vent. Rate : 057 BPM Atrial Rate : 057 BPM P-R Int : 140 ms QRS Dur : 086 ms QT Int : 414 ms P-R-T Axes : 017 008 015 degrees QTc Int : 402 ms Sinus bradycardia Minimal voltage criteria for LVH, may be normal variant ( R in aVL ) Borderline ECG When compared with ECG of 21-APR-2021 17:00, No significant change was found Referred By: Lu Rebolledo Electronically Signed By:MICHELLE BURNETT
[2021-04-25 06:00] VITALS: BP 111/60; PULSE 63; TEMP 37.1
[2021-04-25] MEDS: Lithium Carbonate 300 MG CAPSULE PO (08:35)
[2021-04-25] MEDS: Lidocaine 4 % Patch ADH..PATCH 1 PATCH TRANSDERMA (08:36)
[2021-04-25] MEDS: cloNIDine HCL 0.1 MG TABLET PO ×3 (08:36→20:54)
[2021-04-25] MEDS: Sertraline HCL 50 MG TABLET PO (08:36)
[2021-04-25] MEDS: Gabapentin 600 MG TABLET PO ×3 (08:36→20:54)
[2021-04-25] MEDS: Amphetamine Mixed Salts 10 MG TABLET PO ×2 (08:36→12:56)
[2021-04-25] MEDS: Nicotine 21 MG PATCH.TD24 TRANSDERMA (08:36)
[2021-04-25] MEDS: methADONE HCl 20 MG/2 ML ORAL.CONC 45 MG PO (08:37)
[2021-04-25] MEDS: Nicotine Polacrilex 2 MG GUM 4 MG BUCCAL ×3 (09:16→14:30)
[2021-04-25] MEDS: OLANZapine 5 MG TABLET PO (11:23)
[2021-04-25] MEDS: LORazepam 1 MG TABLET PO (11:23)
[2021-04-25 14:30] VITALS: BP 115/60; PULSE 87
--- NOTE | 2021-04-25 17:26 | P.PNPSI_ITS ---
Subjective Subjective Date of Service: 04/25/21 Reason For Visit: Bipolar Disorder, ADHD, PTSD, Opioid, Cocaine use Subjective Notes: Conditional Voluntary Healthcare Proxy: No Guardianship: No Medical Problems Affecting Mental Status: No Interim History: Pt reports increase in depressive sx. Also stabbing chest pains over the weekend with feeling hot, like I could not gather air. Pain re turned this a.m. describes this as sharp. Sx present for ~3 days. It feels like someone is electrically poking me. Chest X Ray is unremarkable, EKG with no changes. Discussed this as possibly an anxious response. Review of medications and options for sx mgt. Medication Compliance: Yes Side effects from medications: No Attending Groups: Yes Review of Systems Acute medical concerns: No Medical Review of Systems: unchanged Review of Systems Psychiatric: Reports anxiety, Reports depression, Reports difficulty concentrating and Reports suicidal ideation Mental Status Exam Mental Status Exam Patient Appearance: Appropriate Patient Orientation: Person, Place, Time and Situation Level of Consciousness: Alert Patient Behavior: Appropriate, Talkative, Cooperative and Good Eye Contact Mood Description: Depressed and Anxious Affect Description: Flat Patient Cognition Impaired: No Ability to Follow Directions: Good Speech Pattern: Spontaneous Speech Memory Description: Intact Hallucinations: None Delusions: Not Present Perceptual Disturbances: Depersonalization Thought Process: Intact and Goal Oriented Thought Content: positive for Intact, positive for Goal Oriented and positive for Suicidal Ideation Depressive Symptoms: Increased Anxiety, Diff. Making Decisions, Loss of Int. in Activity, Hopelessness and Thoughts of /Suicide Judgement: Fair Diagnostics Vital Signs (24Hr): Vital Signs - 24 hr 04/24/21 17:40 04/24/21 21:32 04/25/21 06:00 Temperature 98.7 F 98.8 F Pulse Rate 88 100 63 Blood Pressure 137/84 120/70 111/60 04/25/21 14:30 Temperature Pulse Rate 87 Blood Pressure 115/60 Labs Results: 04/21/21 17:52 04/21/21 08:09 Labs: Laboratory Results - last 48 hr 04/24/21 18:40 COVID-19 (OZ) Negative COVID-19 Clin Com See Note Imaging Radiology Impressions: ITS Impressions Chest X-Ray 04/25/21 14:22 IMPRESSION: Unremarkable examination. Medications Medications Current Medications Acetaminophen (Acetaminophen 325 Mg Tablet) 650 mg PO Q6H PRN PRN Reason: Headache/Pain Mild Scale (1-3) Al Hydroxide/Mg Hydroxide (Magnesium Hydrox/Alum Hydrox 30 Ml Oral.Susp) 30 ml PO Q6H PRN PRN Reason: Heartburn/Nausea Amphetamine/Dextroamphetamine (Amphetamine Mixed Salts 10 Mg Tablet) 10 mg PO 0800,1300 [facility] Last Admin: 04/25/21 12:56 Dose: 10 mg Documented by: Clonidine HCl (Clonidine Hcl 0.1 Mg Tablet) 0.1 mg PO TID [facility]; Protocol Last Admin: 04/25/21 14:30 Dose: 0.1 mg Documented by: Dicyclomine HCl (Dicyclomine Hcl 10 Mg Capsule) 10 mg PO TIDAC PRN PRN Reason: withdrawl Ergocalciferol (Ergocalciferol (Vitamin D2) 1,250 Mcg Capsule) 1,250 mcg PO Th@0900 [facility] Last Admin: 04/21/21 09:01 Dose: 1,250 mcg Documented by: Gabapentin (Gabapentin 600 Mg Tablet) 600 mg PO TID [facility] Last Admin: 04/25/21 14:30 Dose: 600 mg Documented by: Hydroxyzine HCl (Hydroxyzine Hcl 25 Mg Tablet) 25 mg PO Q6H PRN PRN Reason: Anxiety Last Admin: 04/20/21 11:57 Dose: 25 mg Documented by: Lidocaine (Lidocaine 4 % Patch Adh..Patch) 1 patch TRANSDERMA DAILY [facility]; Protocol Last Admin: 04/25/21 08:36 Dose: 1 patch Documented by: [place] Carbonate ([place] Carbonate 300 Mg Capsule) 300 mg PO DAILY [facility] Last Admin: 04/25/21 08:35 Dose: 300 mg Documented by: [place] Carbonate ([place] Carbonate 300 Mg Capsule) 600 mg PO BEDTIME [facility] Last Admin: 04/24/21 21:32 Dose: 600 mg Documented by: Lorazepam (Lorazepam 1 Mg Tablet) 1 mg PO Q6H PRN PRN Reason: agitation, anxiety Last Admin: 04/25/21 11:23 Dose: 1 mg Documented by: Magnesium Hydroxide (Milk Of Magnesia 30 Ml Oral.Susp) 30 ml PO DAILY PRN PRN Reason: Constipation Methadone HCl (Methadone Hcl 20 Mg/2 Ml Oral.Conc) 45 mg PO DAILY [facility] Last Admin: 04/25/21 08:37 Dose: 45 mg Documented by: Nicotine (Nicotine 21 Mg Patch.Td24) 21 mg TRANSDERMA DAILY [facility] Last Admin: 04/25/21 08:36 Dose: 21 mg Documented by: Nicotine Polacrilex (Nicotine Polacrilex 2 Mg Gum) 4 mg BUCCAL Q2H PRN PRN Reason: Nicotine Cravings Last Admin: 04/25/21 14:30 Dose: 4 mg Documented by: Nicotine Polacrilex (Nicotine Polacrilex 2 Mg Gum) 2 mg BUCCAL Q1H PRN PRN Reason: Nicotine Cravings Last Admin: 04/24/21 04:01 Dose: 2 mg Documented by: Olanzapine (Olanzapine 5 Mg Tablet) 5 mg PO BEDTIME [facility] Last Admin: 04/24/21 21:32 Dose: 5 mg Documented by: Olanzapine (Olanzapine 5 Mg Tablet) 5 mg PO Q6H PRN PRN Reason: agitation Last Admin: 04/25/21 11:23 Dose: 5 mg Documented by: Sertraline HCl (Sertraline Hcl 50 Mg Tablet) 50 mg PO DAILY [facility] Last Admin: 04/25/21 08:36 Dose: 50 mg Documented by: Trazodone HCl (Trazodone Hcl 50 Mg Tablet) 50 mg PO BEDTIME PRN PRN Reason: Insomnia Trolamine Salicylate/Aloe Vera (Trolamine Salicylate 10%/Aloe Cream 35.4 Gm) 1 appl TOPICAL TID PRN PRN Reason: joint pain Valacyclovir HCl (Valacycyclovir Hcl 500 Mg Tablet) 500 mg PO DAILY [facility] Last Admin: 04/25/21 08:35 Dose: 500 mg Documented by: Allergies Allergies Allergy/AdvReac Type Severity Reaction Status Date / Time aspirin [ASA] AdvReac Unknown ABD UPSET Unverified 04/22/20 16:04 Assessment & Plan Assessment & Plan (1) Bipolar disorder: Status: Acute Code(s): F31.9 - Bipolar disorder, unspecified (2) PTSD (post-traumatic stress disorder): Status: Acute Code(s): F43.10 - Post-traumatic stress disorder, unspecified (3) Opioid use disorder, severe, in early remission, on maintenance therapy: Status: Acute Code(s): F11.21 - Opioid dependence, in remission (4) Cocaine use disorder: Status: Acute Code(s): F14.10 - Cocaine abuse, uncomplicated (5) ADHD: Status: Acute Code(s): F90.9 - Attention-deficit hyperactivity disorder, unspecified type Assessment and Plan: Chest XRay-negative EKG-no changes Increase Olanzapine to 10 mg hs Seroquel 50 mg HS prn Increase Sertaline to 75 mg daily Greater than 50% of the session was spent on counseling and/or coordination of care Patient educated on: medication risk/benefits and therapeutic strategies Informed Consent: understands and further education needed Reason for contiued inpatient stay Substantial Risk for: harm to self, inability to function and rapid decompensation
[2021-04-25 18:00] VITALS: BP 125/67; PULSE 67; TEMP 36.6
[2021-04-25 20:54] VITALS: BP 118/61; PULSE 73
[2021-04-25] MEDS: OLANZapine 10 MG TABLET PO (20:54)
[2021-04-25] MEDS: Lithium Carbonate 300 MG CAPSULE 600 MG PO (20:54)
[2021-04-26 06:00] VITALS: BP 109/58; PULSE 59; RESP 16; TEMP 37; O2SAT 99
[2021-04-26] MEDS: Amphetamine Mixed Salts 10 MG TABLET PO ×2 (08:44→14:04)
[2021-04-26] MEDS: Lidocaine 4 % Patch ADH..PATCH 1 PATCH TRANSDERMA (08:44)
[2021-04-26] MEDS: Nicotine 21 MG PATCH.TD24 TRANSDERMA (08:44)
[2021-04-26] MEDS: Gabapentin 600 MG TABLET PO ×3 (08:45→20:11)
[2021-04-26] MEDS: Lithium Carbonate 300 MG CAPSULE PO (08:45)
[2021-04-26] MEDS: Sertraline HCL 25 MG TABLET 75 MG PO (08:45)
[2021-04-26 08:49] VITALS: BP 105/63; PULSE 78
[2021-04-26] MEDS: cloNIDine HCL 0.1 MG TABLET PO ×2 (08:49→20:10)
[2021-04-26] MEDS: methADONE HCl 20 MG/2 ML ORAL.CONC 45 MG PO (08:51)
[2021-04-26] MEDS: LORazepam 1 MG TABLET PO ×3 (09:50→20:10)
[2021-04-26] MEDS: Nicotine Polacrilex 2 MG GUM 4 MG BUCCAL (15:32)
--- NOTE | 2021-04-26 15:51 | HO.PSYCHPN ---
Subjective Subjective Date of Service: 04/26/21 Reason For Visit: Bipolar Disorder, ADHD, PTSD, Opioid, Cocaine use Subjective Notes: Conditional Voluntary Interim History: Pt somewhat somnolent sedated while meeting with this investigative writer. Pt does continue to report depressed mood, anhedonia, hopeless about his future, very lonely with limited supports. He reports seeing a woman last night who was calling his name and asking him to do something with him. He also reports seeing his father. He reports AH for past 12 months, reports complexity of psychosis both visual and auditory worse in past 6 months. He reports he later realized that no one was there. He reports passive suicidal ideation but denies any plan or intent. Medication Compliance: Yes Side effects from medications: No Review of Systems Acute medical concerns: No Review of Systems Review of Systems Yes all other systems are reviewed and are negative (except psychiatric symptoms) Constitutional: Reports anorexia, Reports difficulty sleeping and Reports weight loss Eyes: Reports no additional eye complaints Reports system reviewed and no additional complaints, except as documented and Reports Normal hearing present Cardiovascular: Reports no additional cardiovascular complaints Respiratory: Reports no additional respiratory complaints Gastrointestinal: Reports no additional gastrointestinal complaints Genitourinary: Reports no additional male genitourinary complaints Musculoskeletal: Reports no additional musculoskeletal complaints Reports system reviewed and no additional complaints, except as documented, Reports Normal hearing present and Reports behavioral changes Psychiatric: Reports abnormal sleep pattern, Reports anxiety, Reports behavioral changes, Reports change in appetite, Reports depression, Reports difficulty concentrating, Reports auditory hallucinations, Reports hopelessness, Reports irritability, Reports anhedonia, Reports mood swings, Reports panic attacks and Reports suicidal ideation Endocrine: Reports no additional endocrine complaints Hematologic/Lymphatic: Reports no additional hematologic/lymphatic complaints Allergic/Immunologic: Reports no additional allergic/immunologic complaints Mental Status Exam Mental Status Exam Narrative: Appearance: casually groomed, fair hygiene, somnolent Behavior:cooperative but somnolent and this affecting degree of interaction in interview psychomotor: some retardation noted Speech:clear, some delayed in response rate due to sedation, spontaneous Thought process:tangential Thought content:feeling hopeless, worried about AH/VH Mood: depressed Affect: aside from sedation, affects appears blunted, congruent with reported mood SI:passive denies any plan or intent HI: none VH/AH:AH and VH of father/woman, not command- seems to have insight that these are not there Delusions:none Insight/judgment:fair x 2 Memory/cog: alert, oriented x 3. Diagnostics Vital Signs (24Hr): Vital Signs - 24 hr 04/25/21 18:00 04/25/21 20:54 04/26/21 06:00 Temperature 98 F 98.6 F Pulse Rate 67 73 59 Respiratory Rate 16 Blood Pressure 125/67 118/61 109/58 L Pulse Oximetry 99 04/26/21 08:49 Temperature Pulse Rate 78 Respiratory Rate Blood Pressure 105/63 Pulse Oximetry Labs Results: 04/21/21 17:52 04/21/21 08:09 Labs: Laboratory Results - last 48 hr 04/24/21 18:40 COVID-19 (OZ) Negative COVID-19 Clin Com See Note Imaging Radiology Impressions: ITS Impressions Chest X-Ray 04/25/21 14:22 IMPRESSION: Unremarkable examination. Medications Medications Current Medications Acetaminophen (Acetaminophen 325 Mg Tablet) 650 mg PO Q6H PRN PRN Reason: Headache/Pain Mild Scale (1-3) Al Hydroxide/Mg Hydroxide (Magnesium Hydrox/Alum Hydrox 30 Ml Oral.Susp) 30 ml PO Q6H PRN PRN Reason: Heartburn/Nausea Amphetamine/Dextroamphetamine (Amphetamine Mixed Salts 10 Mg Tablet) 10 mg PO 0800,1300 [facility] Last Admin: 04/26/21 14:04 Dose: 10 mg Documented by: Clonidine HCl (Clonidine Hcl 0.1 Mg Tablet) 0.1 mg PO BID [facility]; Protocol Last Admin: 04/26/21 08:49 Dose: 0.1 mg Documented by: Dicyclomine HCl (Dicyclomine Hcl 10 Mg Capsule) 10 mg PO TIDAC PRN PRN Reason: withdrawl Ergocalciferol (Ergocalciferol (Vitamin D2) 1,250 Mcg Capsule) 1,250 mcg PO Th@0900 [facility] Last Admin: 04/21/21 09:01 Dose: 1,250 mcg Documented by: Gabapentin (Gabapentin 600 Mg Tablet) 600 mg PO TID [facility] Last Admin: 04/26/21 15:12 Dose: 600 mg Documented by: Hydroxyzine HCl (Hydroxyzine Hcl 25 Mg Tablet) 25 mg PO Q6H PRN PRN Reason: Anxiety Last Admin: 04/20/21 11:57 Dose: 25 mg Documented by: Lidocaine (Lidocaine 4 % Patch Adh..Patch) 1 patch TRANSDERMA DAILY [facility]; Protocol Last Admin: 04/26/21 08:44 Dose: 1 patch Documented by: [place] Carbonate ([place] Carbonate 300 Mg Capsule) 300 mg PO DAILY [facility] Last Admin: 04/26/21 08:45 Dose: 300 mg Documented by: [place] Carbonate ([place] Carbonate 300 Mg Capsule) 600 mg PO BEDTIME [facility] Last Admin: 04/25/21 20:54 Dose: 600 mg Documented by: Lorazepam (Lorazepam 1 Mg Tablet) 1 mg PO Q6H PRN PRN Reason: agitation, anxiety Last Admin: 04/26/21 14:04 Dose: 1 mg Documented by: Magnesium Hydroxide (Milk Of Magnesia 30 Ml Oral.Susp) 30 ml PO DAILY PRN PRN Reason: Constipation Methadone HCl (Methadone Hcl 20 Mg/2 Ml Oral.Conc) 50 mg PO DAILY [facility] Nicotine (Nicotine 21 Mg Patch.Td24) 21 mg TRANSDERMA DAILY [facility] Last Admin: 04/26/21 08:44 Dose: 21 mg Documented by: Nicotine Polacrilex (Nicotine Polacrilex 2 Mg Gum) 4 mg BUCCAL Q2H PRN PRN Reason: Nicotine Cravings Last Admin: 04/26/21 15:32 Dose: 4 mg Documented by: Nicotine Polacrilex (Nicotine Polacrilex 2 Mg Gum) 2 mg BUCCAL Q1H PRN PRN Reason: Nicotine Cravings Last Admin: 04/24/21 04:01 Dose: 2 mg Documented by: Olanzapine (Olanzapine 5 Mg Tablet) 5 mg PO Q6H PRN PRN Reason: agitation Last Admin: 04/25/21 11:23 Dose: 5 mg Documented by: Olanzapine (Olanzapine 7.5 Mg Tablet) 15 mg PO BEDTIME [facility] Quetiapine Fumarate (Quetiapine Fumarate 50 Mg Tablet) 50 mg PO BEDTIME PRN PRN Reason: insomnia Sertraline HCl (Sertraline Hcl 25 Mg Tablet) 75 mg PO DAILY [facility] Last Admin: 04/26/21 08:45 Dose: 75 mg Documented by: Trazodone HCl (Trazodone Hcl 50 Mg Tablet) 50 mg PO BEDTIME PRN PRN Reason: Insomnia Trolamine Salicylate/Aloe Vera (Trolamine Salicylate 10%/Aloe Cream 35.4 Gm) 1 appl TOPICAL TID PRN PRN Reason: joint pain Valacyclovir HCl (Valacycyclovir Hcl 500 Mg Tablet) 500 mg PO DAILY [facility] Last Admin: 04/26/21 08:45 Dose: 500 mg Documented by: Allergies Allergies Allergy/AdvReac Type Severity Reaction Status Date / Time aspirin [ASA] AdvReac Unknown ABD UPSET Unverified 04/22/20 16:04 Assessment & Plan Assessment & Plan (1) Bipolar disorder: Status: Acute Code(s): F31.9 - Bipolar disorder, unspecified (2) PTSD (post-traumatic stress disorder): Status: Acute Code(s): F43.10 - Post-traumatic stress disorder, unspecified (3) Opioid use disorder, severe, in early remission, on maintenance therapy: Status: Acute Code(s): F11.21 - Opioid dependence, in remission (4) Cocaine use disorder: Status: Acute Code(s): F14.10 - Cocaine abuse, uncomplicated (5) ADHD: Status: Acute Code(s): F90.9 - Attention-deficit hyperactivity disorder, unspecified type Assessment and Plan: Mr. Velasquez is a 30 year-old male with hx of Bipolar Disorder, cocaine and opioid use disorder. 04/26 pt continues to report depressed mood, hopeless, anhedonia, passive suicidal ideation, AH/VH. PLAN 1. increase olanzapine to 15mg po qhs- continue all other medications as prescribed. 2. may consider d/c adderall if worsening mood, psychosis and given risks of abuse/misuse as pt continue to work on sustance use. Greater than 50% of the session was spent on counseling and/or coordination of care Reason for contiued inpatient stay Substantial Risk for: harm to self
[2021-04-26 18:00] VITALS: BP 125/74; PULSE 81; TEMP 36.3
[2021-04-26 20:10] VITALS: BP 125/74; PULSE 81
[2021-04-26] MEDS: OLANZapine 7.5 MG TABLET 15 MG PO (20:10)
[2021-04-26] MEDS: Nicotine Polacrilex 2 MG GUM BUCCAL (20:11)
[2021-04-26] MEDS: Lithium Carbonate 300 MG CAPSULE 600 MG PO (20:11)
[2021-04-27 08:00] VITALS: BP 155/76; PULSE 66; RESP 16; TEMP 36.6; O2SAT 98
[2021-04-27] MEDS: methADONE HCl 20 MG/2 ML ORAL.CONC 50 MG PO (08:13)
[2021-04-27 08:16] VITALS: BP 155/76; PULSE 66
[2021-04-27] MEDS: cloNIDine HCL 0.1 MG TABLET PO ×2 (08:16→20:21)
--- NOTE | 2021-04-27 08:16 | HO.PSYCHPN ---
Subjective Subjective Date of Service: 04/27/21 Reason For Visit: Bipolar Disorder, ADHD, PTSD, Opioid, Cocaine use Subjective Notes: Conditional Voluntary Healthcare Proxy: No Guardianship: No Medical Problems Affecting Mental Status: No Interim History: Carlos reports feeling better. He believes medication titration has helped. He discussed holding Methadone at 50 mg daily-will review this again on 04/29. He states he is looking for a level with 24 hour coverage and he believes it has been achieved as of todays dosage. Discussed his regime, rationale for use and ongoing treatment planning. Denies SE. Reports sleep is improving, appetite intact. Suicidal ideation decreasing and mood improving. Medication Compliance: Yes Side effects from medications: No Attending Groups: Yes Review of Systems Acute medical concerns: No Medical Review of Systems: unchanged Review of Systems Psychiatric: Reports anxiety, Reports depression, Reports difficulty concentrating and Reports suicidal ideation (decreasing) Mental Status Exam Mental Status Exam Patient Appearance: Appropriate Patient Orientation: Person, Place, Time and Situation Level of Consciousness: Alert Patient Behavior: Appropriate, Talkative, Cooperative and Good Eye Contact Mood Description: Anxious Affect Description: Anxious Patient Cognition Impaired: No Ability to Follow Directions: Good Speech Pattern: Spontaneous Speech Memory Description: Intact Hallucinations: None Delusions: Not Present Thought Process: Distracted Thought Content: positive for Circumstantial Depressive Symptoms: Increased Anxiety and Thoughts of /Suicide (decreasing) Judgement: Good Diagnostics Vital Signs (24Hr): Vital Signs - 24 hr 04/26/21 08:49 04/26/21 18:00 04/26/21 20:10 Temperature 97.4 F Pulse Rate 78 81 81 Blood Pressure 105/63 125/74 125/74 Labs Results: 04/21/21 17:52 04/21/21 08:09 Imaging Radiology Impressions: ITS Impressions Chest X-Ray 04/25/21 14:22 IMPRESSION: Unremarkable examination. Medications Medications Current Medications Acetaminophen (Acetaminophen 325 Mg Tablet) 650 mg PO Q6H PRN PRN Reason: Headache/Pain Mild Scale (1-3) Al Hydroxide/Mg Hydroxide (Magnesium Hydrox/Alum Hydrox 30 Ml Oral.Susp) 30 ml PO Q6H PRN PRN Reason: Heartburn/Nausea Amphetamine/Dextroamphetamine (Amphetamine Mixed Salts 10 Mg Tablet) 10 mg PO 0800,1300 [facility] Last Admin: 04/26/21 14:04 Dose: 10 mg Documented by: Clonidine HCl (Clonidine Hcl 0.1 Mg Tablet) 0.1 mg PO BID [facility]; Protocol Last Admin: 04/26/21 20:10 Dose: 0.1 mg Documented by: Dicyclomine HCl (Dicyclomine Hcl 10 Mg Capsule) 10 mg PO TIDAC PRN PRN Reason: withdrawl Ergocalciferol (Ergocalciferol (Vitamin D2) 1,250 Mcg Capsule) 1,250 mcg PO Th@0900 [facility] Last Admin: 04/21/21 09:01 Dose: 1,250 mcg Documented by: Gabapentin (Gabapentin 600 Mg Tablet) 600 mg PO TID [facility] Last Admin: 04/26/21 20:11 Dose: 600 mg Documented by: Hydroxyzine HCl (Hydroxyzine Hcl 25 Mg Tablet) 25 mg PO Q6H PRN PRN Reason: Anxiety Last Admin: 04/20/21 11:57 Dose: 25 mg Documented by: Lidocaine (Lidocaine 4 % Patch Adh..Patch) 1 patch TRANSDERMA DAILY [facility]; Protocol Last Admin: 04/26/21 08:44 Dose: 1 patch Documented by: [place] Carbonate ([place] Carbonate 300 Mg Capsule) 300 mg PO DAILY [facility] Last Admin: 04/26/21 08:45 Dose: 300 mg Documented by: [place] Carbonate ([place] Carbonate 300 Mg Capsule) 600 mg PO BEDTIME [facility] Last Admin: 04/26/21 20:11 Dose: 600 mg Documented by: Lorazepam (Lorazepam 1 Mg Tablet) 1 mg PO Q6H PRN PRN Reason: agitation, anxiety Last Admin: 04/26/21 20:10 Dose: 1 mg Documented by: Magnesium Hydroxide (Milk Of Magnesia 30 Ml Oral.Susp) 30 ml PO DAILY PRN PRN Reason: Constipation Methadone HCl (Methadone Hcl 20 Mg/2 Ml Oral.Conc) 50 mg PO DAILY [facility] Last Admin: 04/27/21 08:13 Dose: 50 mg Documented by: Nicotine (Nicotine 21 Mg Patch.Td24) 21 mg TRANSDERMA DAILY [facility] Last Admin: 04/26/21 08:44 Dose: 21 mg Documented by: Nicotine Polacrilex (Nicotine Polacrilex 2 Mg Gum) 4 mg BUCCAL Q2H PRN PRN Reason: Nicotine Cravings Last Admin: 04/26/21 15:32 Dose: 4 mg Documented by: Nicotine Polacrilex (Nicotine Polacrilex 2 Mg Gum) 2 mg BUCCAL Q1H PRN PRN Reason: Nicotine Cravings Last Admin: 04/26/21 20:11 Dose: 2 mg Documented by: Olanzapine (Olanzapine 5 Mg Tablet) 5 mg PO Q6H PRN PRN Reason: agitation Last Admin: 04/25/21 11:23 Dose: 5 mg Documented by: Olanzapine (Olanzapine 7.5 Mg Tablet) 15 mg PO BEDTIME [facility] Last Admin: 04/26/21 20:10 Dose: 15 mg Documented by: Quetiapine Fumarate (Quetiapine Fumarate 50 Mg Tablet) 50 mg PO BEDTIME PRN PRN Reason: insomnia Sertraline HCl (Sertraline Hcl 25 Mg Tablet) 75 mg PO DAILY [facility] Last Admin: 04/26/21 08:45 Dose: 75 mg Documented by: Trazodone HCl (Trazodone Hcl 50 Mg Tablet) 50 mg PO BEDTIME PRN PRN Reason: Insomnia Trolamine Salicylate/Aloe Vera (Trolamine Salicylate 10%/Aloe Cream 35.4 Gm) 1 appl TOPICAL TID PRN PRN Reason: joint pain Valacyclovir HCl (Valacycyclovir Hcl 500 Mg Tablet) 500 mg PO DAILY [facility] Last Admin: 04/26/21 08:45 Dose: 500 mg Documented by: Allergies Allergies Allergy/AdvReac Type Severity Reaction Status Date / Time aspirin [ASA] AdvReac Unknown ABD UPSET Unverified 04/22/20 16:04 Assessment & Plan Assessment & Plan (1) Bipolar disorder: Status: Acute Code(s): F31.9 - Bipolar disorder, unspecified (2) PTSD (post-traumatic stress disorder): Status: Acute Code(s): F43.10 - Post-traumatic stress disorder, unspecified (3) Opioid use disorder, severe, in early remission, on maintenance therapy: Status: Acute Code(s): F11.21 - Opioid dependence, in remission (4) Cocaine use disorder: Status: Acute Code(s): F14.10 - Cocaine abuse, uncomplicated (5) ADHD: Status: Acute Code(s): F90.9 - Attention-deficit hyperactivity disorder, unspecified type Assessment and Plan: Continue current plan of care. Methadone scheduled to increase on 04/30. Pt believes we may be able to stop titration currently at 50 mg. Will continue to evaluate Greater than 50% of the session was spent on counseling and/or coordination of care Patient educated on: therapeutic strategies Informed Consent: understands Reason for contiued inpatient stay Substantial Risk for: harm to self, harm to others, inability to function and rapid decompensation
[2021-04-27] MEDS: Gabapentin 600 MG TABLET PO ×3 (08:17→20:22)
[2021-04-27] MEDS: Lithium Carbonate 300 MG CAPSULE PO (08:17)
[2021-04-27] MEDS: Sertraline HCL 25 MG TABLET 75 MG PO (08:18)
[2021-04-27] MEDS: Amphetamine Mixed Salts 10 MG TABLET PO ×2 (08:19→12:49)
[2021-04-27] MEDS: Nicotine 21 MG PATCH.TD24 TRANSDERMA (08:20)
[2021-04-27 09:01] LABS: Lithium 0.82 mmol/L (0.60-1.20)
[2021-04-27] MEDS: Benztropine Mesylate 0.5 MG TABLET PO ×2 (13:45→20:22)
[2021-04-27] MEDS: Nicotine Polacrilex 2 MG GUM 4 MG BUCCAL ×2 (13:46→18:23)
[2021-04-27] MEDS: LORazepam 1 MG TABLET PO (13:46)
[2021-04-27 18:00] VITALS: BP 122/62; PULSE 90; RESP 18; TEMP 36.7; O2SAT 98
[2021-04-27 20:21] VITALS: BP 122/62; PULSE 100
[2021-04-27] MEDS: OLANZapine 7.5 MG TABLET 15 MG PO (20:22)
[2021-04-27] MEDS: Lithium Carbonate 300 MG CAPSULE 600 MG PO (20:22)
[2021-04-28 08:52] VITALS: BP 115/66; PULSE 83
[2021-04-28] MEDS: Lithium Carbonate 300 MG CAPSULE PO (08:52)
[2021-04-28] MEDS: cloNIDine HCL 0.1 MG TABLET PO ×2 (08:52→20:08)
[2021-04-28] MEDS: Sertraline HCL 25 MG TABLET 75 MG PO (08:52)
[2021-04-28] MEDS: Gabapentin 600 MG TABLET PO ×3 (08:52→20:09)
[2021-04-28] MEDS: Amphetamine Mixed Salts 10 MG TABLET PO ×2 (08:53→13:52)
[2021-04-28] MEDS: Benztropine Mesylate 0.5 MG TABLET PO ×2 (08:53→20:09)
[2021-04-28] MEDS: Ergocalciferol (Vitamin D2) 1,250 MCG CAPSULE 1250 MCG PO (08:53)
[2021-04-28] MEDS: methADONE HCl 20 MG/2 ML ORAL.CONC 50 MG PO (08:53)
[2021-04-28 09:28] VITALS: RESP 16; TEMP 36.6
[2021-04-28] MEDS: Nicotine Polacrilex 2 MG GUM BUCCAL (13:55)
--- NOTE | 2021-04-28 16:39 | HO.PSYCHPN ---
Subjective Subjective Date of Service: 04/28/21 Reason For Visit: Bipolar Disorder, ADHD, PTSD, Opioid, Cocaine use Subjective Notes: Conditional Voluntary Medical Problems Affecting Mental Status: No Interim History: Tearful today in our meeting. Experiencing an increase in evening/night flashbacks, dissociative periods effecting sleep as he is reminded of incarceration.Discussed Seroquel titration or new trial. Pt will trial Chlorpromazine 50 mg hs to target racing thoughts, flashbacks. Reports sore throat, cold sx. Throat culture ordered along with SARS/COVID testing and throat drops. Pt continues to report depressive, anxious sx with SI Medication Compliance: Yes Side effects from medications: No Attending Groups: Yes Review of Systems Acute medical concerns: No Medical Review of Systems: unchanged Review of Systems Reports sore throat Psychiatric: Reports abnormal sleep pattern, Reports anxiety, Reports depression, Reports difficulty concentrating, Reports hopelessness, Reports anhedonia, Reports panic attacks and Reports suicidal ideation Mental Status Exam Mental Status Exam Patient Appearance: Appropriate Patient Orientation: Person, Place, Time and Situation Level of Consciousness: Alert Patient Behavior: Appropriate, Talkative, Cooperative and Good Eye Contact Mood Description: Depressed and Anxious Affect Description: Anxious and Flat Patient Cognition Impaired: No Ability to Follow Directions: Good Speech Pattern: Spontaneous Speech Memory Description: Intact Hallucinations: None Delusions: Not Present Thought Process: Distracted Thought Content: positive for Circumstantial and positive for Suicidal Ideation Depressive Symptoms: Increased Anxiety, Insomnia, Diff. Making Decisions, Difficulty Sleeping, Crying Spells, Feelings of Worthlessness, Hopelessness, Isolating-Friends/Family, Unhappiness, Increased Fatigue, Thoughts of /Suicide (decreasing), Low Self Esteem, Loss of Energy and Difficulty Concentrating Judgement: Good Diagnostics Vital Signs (24Hr): Vital Signs - 24 hr 04/27/21 18:00 04/27/21 20:21 04/28/21 08:52 Temperature 98.1 F Pulse Rate 90 100 83 Respiratory Rate 18 Blood Pressure 122/62 122/62 115/66 Pulse Oximetry 98 04/28/21 09:28 Temperature 97.9 F Pulse Rate Respiratory Rate 16 Blood Pressure Pulse Oximetry Labs Results: 04/21/21 17:52 04/21/21 08:09 Labs: Laboratory Results - last 48 hr 04/27/21 08:05 [place] 0.82 Imaging Radiology Impressions: ITS Impressions Chest X-Ray 04/25/21 14:22 IMPRESSION: Unremarkable examination. Medications Medications Current Medications Acetaminophen (Acetaminophen 325 Mg Tablet) 650 mg PO Q6H PRN PRN Reason: Headache/Pain Mild Scale (1-3) Al Hydroxide/Mg Hydroxide (Magnesium Hydrox/Alum Hydrox 30 Ml Oral.Susp) 30 ml PO Q6H PRN PRN Reason: Heartburn/Nausea Amphetamine/Dextroamphetamine (Amphetamine Mixed Salts 10 Mg Tablet) 10 mg PO 0800,1300 [facility] Last Admin: 04/28/21 13:52 Dose: 10 mg Documented by: Benzocaine (Throat Lozenge, Medicated Lozenge) 1 lozenge MUCOUS MEM Q2H PRN PRN Reason: Sore Throat Benztropine Mesylate (Benztropine Mesylate 0.5 Mg Tablet) 0.5 mg PO BID [facility] Last Admin: 04/28/21 08:53 Dose: 0.5 mg Documented by: Chlorpromazine HCl (Chlorpromazine Hcl 25 Mg Tablet) 50 mg PO BEDTIME [facility] Clonidine HCl (Clonidine Hcl 0.1 Mg Tablet) 0.1 mg PO BID [facility]; Protocol Last Admin: 04/28/21 08:52 Dose: 0.1 mg Documented by: Dicyclomine HCl (Dicyclomine Hcl 10 Mg Capsule) 10 mg PO TIDAC PRN PRN Reason: withdrawl Ergocalciferol (Ergocalciferol (Vitamin D2) 1,250 Mcg Capsule) 1,250 mcg PO Th@0900 [facility] Last Admin: 04/28/21 08:53 Dose: 1,250 mcg Documented by: Gabapentin (Gabapentin 600 Mg Tablet) 600 mg PO TID [facility] Last Admin: 04/28/21 13:52 Dose: 600 mg Documented by: Hydroxyzine HCl (Hydroxyzine Hcl 25 Mg Tablet) 25 mg PO Q6H PRN PRN Reason: Anxiety Last Admin: 04/20/21 11:57 Dose: 25 mg Documented by: Lidocaine (Lidocaine 4 % Patch Adh..Patch) 1 patch TRANSDERMA DAILY [facility]; Protocol Last Admin: 04/28/21 08:55 Dose: Not Given Documented by: [place] Carbonate ([place] Carbonate 300 Mg Capsule) 300 mg PO DAILY [facility] Last Admin: 04/28/21 08:52 Dose: 300 mg Documented by: [place] Carbonate ([place] Carbonate 300 Mg Capsule) 600 mg PO BEDTIME [facility] Last Admin: 04/27/21 20:22 Dose: 600 mg Documented by: Lorazepam (Lorazepam 1 Mg Tablet) 1 mg PO Q6H PRN PRN Reason: agitation, anxiety Last Admin: 04/27/21 13:46 Dose: 1 mg Documented by: Magnesium Hydroxide (Milk Of Magnesia 30 Ml Oral.Susp) 30 ml PO DAILY PRN PRN Reason: Constipation Methadone HCl (Methadone Hcl 20 Mg/2 Ml Oral.Conc) 50 mg PO DAILY [facility] Last Admin: 04/28/21 08:53 Dose: 50 mg Documented by: Nicotine (Nicotine 21 Mg Patch.Td24) 21 mg TRANSDERMA DAILY [facility] Last Admin: 04/28/21 08:59 Dose: Not Given Documented by: Nicotine Polacrilex (Nicotine Polacrilex 2 Mg Gum) 4 mg BUCCAL Q2H PRN PRN Reason: Nicotine Cravings Last Admin: 04/27/21 18:23 Dose: 4 mg Documented by: Olanzapine (Olanzapine 5 Mg Tablet) 5 mg PO Q6H PRN PRN Reason: agitation Last Admin: 04/25/21 11:23 Dose: 5 mg Documented by: Olanzapine (Olanzapine 7.5 Mg Tablet) 15 mg PO BEDTIME [facility] Last Admin: 04/27/21 20:22 Dose: 15 mg Documented by: Sertraline HCl (Sertraline Hcl 25 Mg Tablet) 75 mg PO DAILY [facility] Last Admin: 04/28/21 08:52 Dose: 75 mg Documented by: Trolamine Salicylate/Aloe Vera (Trolamine Salicylate 10%/Aloe Cream 35.4 Gm) 1 appl TOPICAL TID PRN PRN Reason: joint pain Valacyclovir HCl (Valacycyclovir Hcl 500 Mg Tablet) 500 mg PO DAILY [facility] Last Admin: 04/28/21 08:52 Dose: 500 mg Documented by: Allergies Allergies Allergy/AdvReac Type Severity Reaction Status Date / Time aspirin [ASA] AdvReac Unknown ABD UPSET Unverified 04/22/20 16:04 Assessment & Plan Assessment & Plan (1) Bipolar disorder: Status: Acute Code(s): F31.9 - Bipolar disorder, unspecified (2) PTSD (post-traumatic stress disorder): Status: Acute Code(s): F43.10 - Post-traumatic stress disorder, unspecified (3) Opioid use disorder, severe, in early remission, on maintenance therapy: Status: Acute Code(s): F11.21 - Opioid dependence, in remission (4) Cocaine use disorder: Status: Acute Code(s): F14.10 - Cocaine abuse, uncomplicated (5) ADHD: Status: Acute Code(s): F90.9 - Attention-deficit hyperactivity disorder, unspecified type Assessment and Plan: Discontinue Seroquel Chlorpromazine 50 mg HS Throat culture, SARS/COVID, Medicated Throat drops as pt is reporting a sore throat. Methadone scheduled to increase on 04/30. Pt believes we may be able to stop titration currently at 50 mg. Will continue to evaluate Greater than 50% of the session was spent on counseling and/or coordination of care Patient educated on: therapeutic strategies Informed Consent: understands Reason for contiued inpatient stay Substantial Risk for: harm to self, inability to function and rapid decompensation
[2021-04-28 19:44] LABS: Influenza A PCR NEGATIVE (Negative); Influenza B PCR NEGATIVE (Negative); Resp Syncy Virus RNA Qual PCR NEGATIVE (Negative); SARS COV2 PCR INHOUSE NEGATIVE (Negative)
[2021-04-28 19:46] VITALS: BP 116/58; PULSE 74; TEMP 36.7
[2021-04-28 20:08] VITALS: BP 116/58; PULSE 74
[2021-04-28] MEDS: OLANZapine 7.5 MG TABLET 15 MG PO (20:08)
[2021-04-28] MEDS: Lithium Carbonate 300 MG CAPSULE 600 MG PO (20:08)
[2021-04-28] MEDS: chlorproMAZINE HCl 25 MG TABLET 50 MG PO (20:09)
[2021-04-29 08:32] LABS: Lithium 0.86 mmol/L (0.60-1.20)
[2021-04-29] MEDS: methADONE HCl 20 MG/2 ML ORAL.CONC 50 MG PO (08:57)
[2021-04-29 08:58] VITALS: BP 116/68; PULSE 71
[2021-04-29] MEDS: cloNIDine HCL 0.1 MG TABLET PO ×2 (08:58→20:40)
[2021-04-29] MEDS: Gabapentin 600 MG TABLET PO ×3 (08:58→20:39)
[2021-04-29] MEDS: Amphetamine Mixed Salts 10 MG TABLET PO ×2 (08:58→12:32)
[2021-04-29] MEDS: Sertraline HCL 25 MG TABLET 75 MG PO (08:58)
[2021-04-29] MEDS: Benztropine Mesylate 0.5 MG TABLET PO ×2 (08:58→20:40)
[2021-04-29] MEDS: Lithium Carbonate 300 MG CAPSULE PO (08:58)
[2021-04-29] MEDS: Nicotine Polacrilex 2 MG GUM 4 MG BUCCAL (09:07)
[2021-04-29 11:33] VITALS: BP 116/68; PULSE 71; RESP 16; TEMP 36.6; O2SAT 98
[2021-04-29] MEDS: LORazepam 1 MG TABLET PO (12:32)
--- NOTE | 2021-04-29 18:48 | HO.PSYCHPN ---
Subjective Subjective Date of Service: 04/29/21 Reason For Visit: Bipolar Disorder, ADHD, PTSD, Opioid, Cocaine use Subjective Notes: Conditional Voluntary Interim History: Pt reports some improvement. He believes the Methadone is appropriate at 50 mg daily and as a result we will not continue titration to 55 mg daily as was recommended by his OP Team. Reports some decrease of depressive sx. Able to discuss his feelings of being triggered while on the unit. This environment is just like [facility]. The unit is even structured like [facility]. Pt reports chlorpromazine helpful with improved quality of sleep-going back to sleep quicker. Believes that RANDY has to do with the amount of fluid he intakes and needing to urinate a few times during the night. Although he feels improved, states it is like something is trying to hold me back Discussed trigger mgt and that discharge may free him from his feeling the in pt unit is similiar to incarceration. He agrees. Tentative discharge early next week. Medication Compliance: Yes Side effects from medications: No Attending Groups: Yes Review of Systems Acute medical concerns: No Review of Systems Psychiatric: Reports anxiety Mental Status Exam Mental Status Exam Patient Appearance: Appropriate Patient Orientation: Person, Place, Time and Situation Level of Consciousness: Alert Patient Behavior: Appropriate, Talkative, Cooperative and Good Eye Contact Mood Description: Depressed and Anxious Affect Description: Anxious and Flat Patient Cognition Impaired: No Ability to Follow Directions: Good Speech Pattern: Spontaneous Speech Memory Description: Intact Hallucinations: None Delusions: Not Present Thought Process: Distracted Thought Content: positive for Circumstantial Depressive Symptoms: Increased Anxiety, Diff. Making Decisions and Low Self Esteem Judgement: Good Diagnostics Vital Signs (24Hr): Vital Signs - 24 hr 04/28/21 19:46 04/28/21 20:08 04/29/21 08:58 Temperature 98.0 F Pulse Rate 74 74 71 Respiratory Rate Blood Pressure 116/58 L 116/58 L 116/68 Pulse Oximetry 04/29/21 11:33 Temperature 98 F Pulse Rate 71 Respiratory Rate 16 Blood Pressure 116/68 Pulse Oximetry 98 Labs Results: 04/21/21 17:52 04/21/21 08:09 Labs: Laboratory Results - last 48 hr 04/28/21 04/29/21 18:58 07:51 [place] 0.86 Coronavirus (PCR) NEGATIVE Influenza Type A (PCR) NEGATIVE Influenza Type B (PCR) NEGATIVE RSV RNA Qual (PCR) NEGATIVE Imaging Radiology Impressions: ITS Impressions Chest X-Ray 04/25/21 14:22 IMPRESSION: Unremarkable examination. Medications Medications Current Medications Acetaminophen (Acetaminophen 325 Mg Tablet) 650 mg PO Q6H PRN PRN Reason: Headache/Pain Mild Scale (1-3) Al Hydroxide/Mg Hydroxide (Magnesium Hydrox/Alum Hydrox 30 Ml Oral.Susp) 30 ml PO Q6H PRN PRN Reason: Heartburn/Nausea Amphetamine/Dextroamphetamine (Amphetamine Mixed Salts 10 Mg Tablet) 10 mg PO 0800,1300 COUNTS INCLUDE 234 BEDS AT THE [facility] Last Admin: 04/29/21 12:32 Dose: 10 mg Documented by: Benzocaine (Throat Lozenge, Medicated Lozenge) 1 lozenge MUCOUS MEM Q2H PRN PRN Reason: Sore Throat Benztropine Mesylate (Benztropine Mesylate 0.5 Mg Tablet) 0.5 mg PO BID COUNTS INCLUDE 234 BEDS AT THE [facility] Last Admin: 04/29/21 08:58 Dose: 0.5 mg Documented by: Chlorpromazine HCl (Chlorpromazine Hcl 25 Mg Tablet) 50 mg PO BEDTIME COUNTS INCLUDE 234 BEDS AT THE [facility] Last Admin: 04/28/21 20:09 Dose: 50 mg Documented by: Clonidine HCl (Clonidine Hcl 0.1 Mg Tablet) 0.1 mg PO BID COUNTS INCLUDE 234 BEDS AT THE [facility]; Protocol Last Admin: 04/29/21 08:58 Dose: 0.1 mg Documented by: Dicyclomine HCl (Dicyclomine Hcl 10 Mg Capsule) 10 mg PO TIDAC PRN PRN Reason: withdrawl Ergocalciferol (Ergocalciferol (Vitamin D2) 1,250 Mcg Capsule) 1,250 mcg PO Th@0900 COUNTS INCLUDE 234 BEDS AT THE [facility] Last Admin: 04/28/21 08:53 Dose: 1,250 mcg Documented by: Gabapentin (Gabapentin 600 Mg Tablet) 600 mg PO TID COUNTS INCLUDE 234 BEDS AT THE [facility] Last Admin: 04/29/21 14:45 Dose: 600 mg Documented by: Hydroxyzine HCl (Hydroxyzine Hcl 25 Mg Tablet) 25 mg PO Q6H PRN PRN Reason: Anxiety Last Admin: 04/20/21 11:57 Dose: 25 mg Documented by: Lidocaine (Lidocaine 4 % Patch Adh..Patch) 1 patch TRANSDERMA DAILY COUNTS INCLUDE 234 BEDS AT THE [facility]; Protocol Last Admin: 04/29/21 09:01 Dose: Not Given Documented by: [place] Carbonate ([place] Carbonate 300 Mg Capsule) 300 mg PO DAILY COUNTS INCLUDE 234 BEDS AT THE [facility] Last Admin: 04/29/21 08:58 Dose: 300 mg Documented by: [place] Carbonate ([place] Carbonate 300 Mg Capsule) 600 mg PO BEDTIME COUNTS INCLUDE 234 BEDS AT THE [facility] Last Admin: 04/28/21 20:08 Dose: 600 mg Documented by: Lorazepam (Lorazepam 1 Mg Tablet) 1 mg PO Q6H PRN PRN Reason: agitation, anxiety Last Admin: 04/29/21 12:32 Dose: 1 mg Documented by: Magnesium Hydroxide (Milk Of Magnesia 30 Ml Oral.Susp) 30 ml PO DAILY PRN PRN Reason: Constipation Methadone HCl (Methadone Hcl 20 Mg/2 Ml Oral.Conc) 50 mg PO DAILY COUNTS INCLUDE 234 BEDS AT THE [facility] Last Admin: 04/29/21 08:57 Dose: 50 mg Documented by: Nicotine (Nicotine 21 Mg Patch.Td24) 21 mg TRANSDERMA DAILY COUNTS INCLUDE 234 BEDS AT THE [facility] Last Admin: 04/29/21 09:01 Dose: Not Given Documented by: Nicotine Polacrilex (Nicotine Polacrilex 2 Mg Gum) 4 mg BUCCAL Q2H PRN PRN Reason: Nicotine Cravings Last Admin: 04/29/21 09:07 Dose: 4 mg Documented by: Olanzapine (Olanzapine 5 Mg Tablet) 5 mg PO Q6H PRN PRN Reason: agitation Last Admin: 04/25/21 11:23 Dose: 5 mg Documented by: Olanzapine (Olanzapine 7.5 Mg Tablet) 15 mg PO BEDTIME COUNTS INCLUDE 234 BEDS AT THE [facility] Last Admin: 04/28/21 20:08 Dose: 15 mg Documented by: Sertraline HCl (Sertraline Hcl 25 Mg Tablet) 75 mg PO DAILY COUNTS INCLUDE 234 BEDS AT THE [facility] Last Admin: 04/29/21 08:58 Dose: 75 mg Documented by: Trolamine Salicylate/Aloe Vera (Trolamine Salicylate 10%/Aloe Cream 35.4 Gm) 1 appl TOPICAL TID PRN PRN Reason: joint pain Valacyclovir HCl (Valacycyclovir Hcl 500 Mg Tablet) 500 mg PO DAILY COUNTS INCLUDE 234 BEDS AT THE [facility] Last Admin: 04/29/21 08:58 Dose: 500 mg Documented by: Allergies Allergies Allergy/AdvReac Type Severity Reaction Status Date / Time aspirin [ASA] AdvReac Unknown ABD UPSET Unverified 04/22/20 16:04 Assessment & Plan Assessment & Plan (1) Bipolar disorder: Status: Acute Code(s): F31.9 - Bipolar disorder, unspecified (2) PTSD (post-traumatic stress disorder): Status: Acute Code(s): F43.10 - Post-traumatic stress disorder, unspecified (3) Opioid use disorder, severe, in early remission, on maintenance therapy: Status: Acute Code(s): F11.21 - Opioid dependence, in remission (4) Cocaine use disorder: Status: Acute Code(s): F14.10 - Cocaine abuse, uncomplicated (5) ADHD: Status: Acute Code(s): F90.9 - Attention-deficit hyperactivity disorder, unspecified type Assessment and Plan: Continue current regime. Greater than 50% of the session was spent on counseling and/or coordination of care Patient educated on: medication risk/benefits Informed Consent: understands and further education needed Reason for contiued inpatient stay Substantial Risk for: harm to self, inability to function and rapid decompensation
[2021-04-29] MEDS: chlorproMAZINE HCl 25 MG TABLET 50 MG PO (20:39)
[2021-04-29] MEDS: OLANZapine 7.5 MG TABLET 15 MG PO (20:39)
[2021-04-29 20:40] VITALS: BP 125/74; PULSE 84
[2021-04-29] MEDS: Lithium Carbonate 300 MG CAPSULE 600 MG PO (20:40)
[2021-04-29] MEDS: Throat Lozenge, Medicated LOZENGE 1 LOZENGE MUCOUS MEM (22:29)
[2021-04-30 06:00] VITALS: BP 117/58; PULSE 71; RESP 16; TEMP 36.6; O2SAT 100
[2021-04-30] MEDS: methADONE HCl 20 MG/2 ML ORAL.CONC 50 MG PO (08:41)
[2021-04-30] MEDS: Lithium Carbonate 300 MG CAPSULE PO (08:45)
[2021-04-30 08:46] VITALS: BP 117/58; PULSE 71
[2021-04-30] MEDS: cloNIDine HCL 0.1 MG TABLET PO ×2 (08:46→20:32)
[2021-04-30] MEDS: Amphetamine Mixed Salts 10 MG TABLET PO ×2 (08:46→14:21)
[2021-04-30] MEDS: Sertraline HCL 25 MG TABLET 75 MG PO (08:46)
[2021-04-30] MEDS: Gabapentin 600 MG TABLET PO ×3 (08:46→20:32)
[2021-04-30] MEDS: Nicotine 21 MG PATCH.TD24 TRANSDERMA (08:47)
[2021-04-30] MEDS: Benztropine Mesylate 0.5 MG TABLET PO ×2 (08:59→20:33)
[2021-04-30] MEDS: Milk of Magnesia 30 ML ORAL.SUSP PO (12:09)
--- NOTE | 2021-04-30 13:08 | HO.PSYCHPN ---
Subjective Subjective Date of Service: 04/30/21 Reason For Visit: Bipolar Disorder, ADHD, PTSD, Opioid, Cocaine use Interim History: Patient reports that his mood is little better and though he intermittently has SI it is much less so. He still has moments of depression also but says they are less and less. Patient reports some intermittent auditory hallucinations but again less often. He feels that medications are working and denies side effects. Patient complains of left lower gum pain which he said just started today. Rn Gastroenterology did brief visual examination which was unremarkable; discussed with nursing who says patient told him it was just mental pain. Will continue to monitor Mental Status Exam Mental Status Exam Narrative: Patient Appearance:?Appropriate Patient Orientation:?Person, Place, Time and Situation Level of Consciousness:?Alert Patient Behavior:?calm, cooperative, adeuqate Eye Contact Mood Description:?better, though still Depressed and Anxious Affect Description:?Anxious Patient Cognition Impaired:?No Ability to Follow Directions:?Good Speech Pattern:?Spontaneous Speech Memory Description:?Intact Hallucinations:?None Delusions:?Not Present Thought Process:?Distracted Thought Content:?intermittent SI w/out plans/intent; no HI Judgement:?fair Diagnostics Vital Signs (24Hr): Vital Signs - 24 hr 04/29/21 20:40 04/30/21 06:00 04/30/21 08:46 Temperature 97.9 F Pulse Rate 84 71 71 Respiratory Rate 16 Blood Pressure 125/74 117/58 L 117/58 L Pulse Oximetry 100 Labs Results: 04/21/21 17:52 04/21/21 08:09 Labs: Laboratory Results - last 48 hr 04/28/21 04/29/21 18:58 07:51 [place] 0.86 Coronavirus (PCR) NEGATIVE Influenza Type A (PCR) NEGATIVE Influenza Type B (PCR) NEGATIVE RSV RNA Qual (PCR) NEGATIVE Imaging Radiology Impressions: ITS Impressions Chest X-Ray 04/25/21 14:22 IMPRESSION: Unremarkable examination. Medications Medications Current Medications Acetaminophen (Acetaminophen 325 Mg Tablet) 650 mg PO Q6H PRN PRN Reason: Headache/Pain Mild Scale (1-3) Al Hydroxide/Mg Hydroxide (Magnesium Hydrox/Alum Hydrox 30 Ml Oral.Susp) 30 ml PO Q6H PRN PRN Reason: Heartburn/Nausea Amphetamine/Dextroamphetamine (Amphetamine Mixed Salts 10 Mg Tablet) 10 mg PO 0800,1300 [facility] Last Admin: 04/30/21 08:46 Dose: 10 mg Documented by: Benzocaine (Throat Lozenge, Medicated Lozenge) 1 lozenge MUCOUS MEM Q2H PRN PRN Reason: Sore Throat Last Admin: 04/29/21 22:29 Dose: 1 lozenge Documented by: Benztropine Mesylate (Benztropine Mesylate 0.5 Mg Tablet) 0.5 mg PO BID [facility] Last Admin: 04/30/21 08:59 Dose: 0.5 mg Documented by: Chlorpromazine HCl (Chlorpromazine Hcl 25 Mg Tablet) 50 mg PO BEDTIME [facility] Last Admin: 04/29/21 20:39 Dose: 50 mg Documented by: Clonidine HCl (Clonidine Hcl 0.1 Mg Tablet) 0.1 mg PO BID [facility]; Protocol Last Admin: 04/30/21 08:46 Dose: 0.1 mg Documented by: Dicyclomine HCl (Dicyclomine Hcl 10 Mg Capsule) 10 mg PO TIDAC PRN PRN Reason: withdrawl Ergocalciferol (Ergocalciferol (Vitamin D2) 1,250 Mcg Capsule) 1,250 mcg PO Th@0900 [facility] Last Admin: 04/28/21 08:53 Dose: 1,250 mcg Documented by: Gabapentin (Gabapentin 600 Mg Tablet) 600 mg PO TID [facility] Last Admin: 04/30/21 08:46 Dose: 600 mg Documented by: Hydroxyzine HCl (Hydroxyzine Hcl 25 Mg Tablet) 25 mg PO Q6H PRN PRN Reason: Anxiety Last Admin: 04/20/21 11:57 Dose: 25 mg Documented by: Lidocaine (Lidocaine 4 % Patch Adh..Patch) 1 patch TRANSDERMA DAILY [facility]; Protocol Last Admin: 04/30/21 08:59 Dose: Not Given Documented by: [place] Carbonate ([place] Carbonate 300 Mg Capsule) 300 mg PO DAILY [facility] Last Admin: 04/30/21 08:45 Dose: 300 mg Documented by: [place] Carbonate ([place] Carbonate 300 Mg Capsule) 600 mg PO BEDTIME [facility] Last Admin: 04/29/21 20:40 Dose: 600 mg Documented by: Lorazepam (Lorazepam 1 Mg Tablet) 1 mg PO Q6H PRN PRN Reason: agitation, anxiety Last Admin: 04/29/21 12:32 Dose: 1 mg Documented by: Magnesium Hydroxide (Milk Of Magnesia 30 Ml Oral.Susp) 30 ml PO DAILY PRN PRN Reason: Constipation Last Admin: 04/30/21 12:09 Dose: 30 ml Documented by: Methadone HCl (Methadone Hcl 20 Mg/2 Ml Oral.Conc) 50 mg PO DAILY [facility] Last Admin: 04/30/21 08:41 Dose: 50 mg Documented by: Nicotine (Nicotine 21 Mg Patch.Td24) 21 mg TRANSDERMA DAILY [facility] Last Admin: 04/30/21 08:47 Dose: 21 mg Documented by: Nicotine Polacrilex (Nicotine Polacrilex 2 Mg Gum) 4 mg BUCCAL Q2H PRN PRN Reason: Nicotine Cravings Last Admin: 04/29/21 09:07 Dose: 4 mg Documented by: Olanzapine (Olanzapine 5 Mg Tablet) 5 mg PO Q6H PRN PRN Reason: agitation Last Admin: 04/25/21 11:23 Dose: 5 mg Documented by: Olanzapine (Olanzapine 7.5 Mg Tablet) 15 mg PO BEDTIME [facility] Last Admin: 04/29/21 20:39 Dose: 15 mg Documented by: Sertraline HCl (Sertraline Hcl 25 Mg Tablet) 75 mg PO DAILY [facility] Last Admin: 04/30/21 08:46 Dose: 75 mg Documented by: Trolamine Salicylate/Aloe Vera (Trolamine Salicylate 10%/Aloe Cream 35.4 Gm) 1 appl TOPICAL TID PRN PRN Reason: joint pain Valacyclovir HCl (Valacycyclovir Hcl 500 Mg Tablet) 500 mg PO DAILY [facility] Last Admin: 04/30/21 08:45 Dose: 500 mg Documented by: Allergies Allergies Allergy/AdvReac Type Severity Reaction Status Date / Time aspirin [ASA] AdvReac Unknown ABD UPSET Unverified 04/22/20 16:04 Assessment & Plan Assessment & Plan (1) Bipolar disorder: Status: Acute Code(s): F31.9 - Bipolar disorder, unspecified (2) PTSD (post-traumatic stress disorder): Status: Acute Code(s): F43.10 - Post-traumatic stress disorder, unspecified (3) Opioid use disorder, severe, in early remission, on maintenance therapy: Status: Acute Code(s): F11.21 - Opioid dependence, in remission (4) Cocaine use disorder: Status: Acute Code(s): F14.10 - Cocaine abuse, uncomplicated (5) ADHD: Status: Acute Code(s): F90.9 - Attention-deficit hyperactivity disorder, unspecified type Assessment and Plan: Rn Gastroenterology covering 04/30 -No changes made to current treatment plan -Patient complains of left lower gum pain which he said just started today. Rn Gastroenterology did brief visual examination which was unremarkable; discussed with nursing who says patient told him it was just mental pain. Will continue to monitor Continue current regime. Greater than 50% of the session was spent on counseling and/or coordination of care Reason for contiued inpatient stay Substantial Risk for: rapid decompensation
[2021-04-30] MEDS: LORazepam 1 MG TABLET PO (16:32)
[2021-04-30] MEDS: Nicotine Polacrilex 2 MG GUM 4 MG BUCCAL (16:40)
[2021-04-30 18:00] VITALS: BP 112/76; PULSE 88; RESP 18; TEMP 36.3; O2SAT 99
[2021-04-30 20:32] VITALS: BP 132/90; PULSE 76
[2021-04-30] MEDS: Lithium Carbonate 300 MG CAPSULE 600 MG PO (20:32)
[2021-04-30] MEDS: OLANZapine 7.5 MG TABLET 15 MG PO (20:32)
[2021-04-30] MEDS: chlorproMAZINE HCl 25 MG TABLET 50 MG PO (20:33)
[2021-05-01 06:00] VITALS: BP 100/65; PULSE 68; TEMP 36.6; O2SAT 97
[2021-05-01 08:19] VITALS: BP 100/65; PULSE 68
[2021-05-01] MEDS: cloNIDine HCL 0.1 MG TABLET PO ×2 (08:19→20:18)
[2021-05-01] MEDS: Sertraline HCL 25 MG TABLET 75 MG PO (08:19)
[2021-05-01] MEDS: Amphetamine Mixed Salts 10 MG TABLET PO ×2 (08:19→14:27)
[2021-05-01] MEDS: Benztropine Mesylate 0.5 MG TABLET PO ×2 (08:20→20:19)
[2021-05-01] MEDS: Nicotine 21 MG PATCH.TD24 TRANSDERMA (08:20)
[2021-05-01] MEDS: Lithium Carbonate 300 MG CAPSULE PO (08:20)
[2021-05-01] MEDS: Gabapentin 600 MG TABLET PO ×3 (08:20→20:19)
[2021-05-01] MEDS: methADONE HCl 20 MG/2 ML ORAL.CONC 50 MG PO (08:20)
[2021-05-01] MEDS: Nicotine Polacrilex 2 MG GUM 4 MG BUCCAL ×3 (11:46→18:53)
[2021-05-01] MEDS: LORazepam 1 MG TABLET PO ×2 (11:46→18:48)
[2021-05-01 20:18] VITALS: BP 118/69; PULSE 80
[2021-05-01] MEDS: chlorproMAZINE HCl 25 MG TABLET 50 MG PO (20:19)
[2021-05-01] MEDS: Lithium Carbonate 300 MG CAPSULE 600 MG PO (20:19)
[2021-05-01] MEDS: OLANZapine 7.5 MG TABLET 15 MG PO (20:20)
--- NOTE | 2021-05-01 20:55 | P.PNPSI_ITS ---
Subjective Subjective Date of Service: 05/01/21 Reason For Visit: Bipolar Disorder, ADHD, PTSD, Opioid, Cocaine use Interim History: pt has been walking around [place], looking very drowsy, falling asleep in kitchen Pt denies being sleepy due to medications saying it's only because there is nothing to do on the weekends. mood better; intermittent passive SI Mental Status Exam Mental Status Exam Narrative: Patient Appearance:?Appropriate Patient Orientation:?Person, Place, Time and Situation Level of Consciousness:?drowsy but alert Patient Behavior:?calm, cooperative, adeuqate Eye Contact Mood Description:?better, though still Depressed and Anxious Affect Description:?fatiqued Patient Cognition Impaired:?No Ability to Follow Directions:?Good Speech Pattern:?Spontaneous Speech Memory Description:?Intact Hallucinations:?None Delusions:?Not Present Thought Process:?Distracted Thought Content:?intermittent SI w/out plans/intent; no HI Judgement:?fair Diagnostics Vital Signs (24Hr): Vital Signs - 24 hr 05/01/21 06:00 05/01/21 08:19 05/01/21 20:18 Temperature 97.9 F Pulse Rate 68 68 80 Blood Pressure 100/65 100/65 118/69 Pulse Oximetry 97 Labs Results: 04/21/21 17:52 04/21/21 08:09 Imaging Radiology Impressions: ITS Impressions Chest X-Ray 04/25/21 14:22 IMPRESSION: Unremarkable examination. Medications Medications Current Medications Acetaminophen (Acetaminophen 325 Mg Tablet) 650 mg PO Q6H PRN PRN Reason: Headache/Pain Mild Scale (1-3) Al Hydroxide/Mg Hydroxide (Magnesium Hydrox/Alum Hydrox 30 Ml Oral.Susp) 30 ml PO Q6H PRN PRN Reason: Heartburn/Nausea Amphetamine/Dextroamphetamine (Amphetamine Mixed Salts 10 Mg Tablet) 10 mg PO 0800,1300 [facility] Last Admin: 05/01/21 14:27 Dose: 10 mg Documented by: Benzocaine (Throat Lozenge, Medicated Lozenge) 1 lozenge MUCOUS MEM Q2H PRN PRN Reason: Sore Throat Last Admin: 04/29/21 22:29 Dose: 1 lozenge Documented by: Benztropine Mesylate (Benztropine Mesylate 0.5 Mg Tablet) 0.5 mg PO BID [facility] Last Admin: 05/01/21 20:19 Dose: 0.5 mg Documented by: Chlorpromazine HCl (Chlorpromazine Hcl 25 Mg Tablet) 50 mg PO BEDTIME [facility] Last Admin: 05/01/21 20:19 Dose: 50 mg Documented by: Clonidine HCl (Clonidine Hcl 0.1 Mg Tablet) 0.1 mg PO BID [facility]; Protocol Last Admin: 05/01/21 20:18 Dose: 0.1 mg Documented by: Dicyclomine HCl (Dicyclomine Hcl 10 Mg Capsule) 10 mg PO TIDAC PRN PRN Reason: withdrawl Ergocalciferol (Ergocalciferol (Vitamin D2) 1,250 Mcg Capsule) 1,250 mcg PO Th@0900 [facility] Last Admin: 04/28/21 08:53 Dose: 1,250 mcg Documented by: Gabapentin (Gabapentin 600 Mg Tablet) 600 mg PO TID [facility] Last Admin: 05/01/21 20:19 Dose: 600 mg Documented by: Hydroxyzine HCl (Hydroxyzine Hcl 25 Mg Tablet) 25 mg PO Q6H PRN PRN Reason: Anxiety Last Admin: 04/20/21 11:57 Dose: 25 mg Documented by: Lidocaine (Lidocaine 4 % Patch Adh..Patch) 1 patch TRANSDERMA DAILY [facility]; Protocol Last Admin: 05/01/21 08:43 Dose: Not Given Documented by: [place] Carbonate ([place] Carbonate 300 Mg Capsule) 300 mg PO DAILY [facility] Last Admin: 05/01/21 08:20 Dose: 300 mg Documented by: [place] Carbonate ([place] Carbonate 300 Mg Capsule) 600 mg PO BEDTIME [facility] Last Admin: 05/01/21 20:19 Dose: 600 mg Documented by: Lorazepam (Lorazepam 1 Mg Tablet) 1 mg PO Q6H PRN PRN Reason: agitation, anxiety Last Admin: 05/01/21 18:48 Dose: 1 mg Documented by: Magnesium Hydroxide (Milk Of Magnesia 30 Ml Oral.Susp) 30 ml PO DAILY PRN PRN Reason: Constipation Last Admin: 04/30/21 12:09 Dose: 30 ml Documented by: Methadone HCl (Methadone Hcl 20 Mg/2 Ml Oral.Conc) 50 mg PO DAILY [facility] Last Admin: 05/01/21 08:20 Dose: 50 mg Documented by: Nicotine (Nicotine 21 Mg Patch.Td24) 21 mg TRANSDERMA DAILY [facility] Last Admin: 05/01/21 08:20 Dose: 21 mg Documented by: Nicotine Polacrilex (Nicotine Polacrilex 2 Mg Gum) 4 mg BUCCAL Q2H PRN PRN Reason: Nicotine Cravings Last Admin: 05/01/21 18:53 Dose: 4 mg Documented by: Olanzapine (Olanzapine 5 Mg Tablet) 5 mg PO Q6H PRN PRN Reason: agitation Last Admin: 04/25/21 11:23 Dose: 5 mg Documented by: Olanzapine (Olanzapine 7.5 Mg Tablet) 15 mg PO BEDTIME [facility] Last Admin: 05/01/21 20:20 Dose: 15 mg Documented by: Sertraline HCl (Sertraline Hcl 25 Mg Tablet) 75 mg PO DAILY [facility] Last Admin: 05/01/21 08:19 Dose: 75 mg Documented by: Trolamine Salicylate/Aloe Vera (Trolamine Salicylate 10%/Aloe Cream 35.4 Gm) 1 appl TOPICAL TID PRN PRN Reason: joint pain Valacyclovir HCl (Valacycyclovir Hcl 500 Mg Tablet) 500 mg PO DAILY [facility] Last Admin: 05/01/21 08:19 Dose: 500 mg Documented by: Allergies Allergies Allergy/AdvReac Type Severity Reaction Status Date / Time aspirin [ASA] AdvReac Unknown ABD UPSET Unverified 04/22/20 16:04 Assessment & Plan Assessment & Plan (1) Bipolar disorder: Status: Acute Code(s): F31.9 - Bipolar disorder, unspecified (2) PTSD (post-traumatic stress disorder): Status: Acute Code(s): F43.10 - Post-traumatic stress disorder, unspecified (3) Opioid use disorder, severe, in early remission, on maintenance therapy: Status: Acute Code(s): F11.21 - Opioid dependence, in remission (4) Cocaine use disorder: Status: Acute Code(s): F14.10 - Cocaine abuse, uncomplicated (5) ADHD: Status: Acute Code(s): F90.9 - Attention-deficit hyperactivity disorder, unspecified type Assessment and Plan: African History Professor covering 05/01 -No changes made to current treatment plan -consider changing some daytime meds to nighttime. Currently pt says he is not sedated due to medications but has been looking drowsy in [place] Will continue to monitor Continue current regime. Greater than 50% of the session was spent on counseling and/or coordination of care Reason for contiued inpatient stay Substantial Risk for: med/psych decompensation
[2021-05-02] MEDS: LORazepam 1 MG TABLET PO (04:21)
[2021-05-02 06:00] VITALS: BP 118/73; PULSE 105; TEMP 36.7; O2SAT 98
[2021-05-02] MEDS: Nicotine 21 MG PATCH.TD24 TRANSDERMA (09:45)
[2021-05-02] MEDS: Milk of Magnesia 30 ML ORAL.SUSP PO (09:45)
[2021-05-02 09:46] VITALS: BP 118/73; PULSE 105
[2021-05-02] MEDS: Amphetamine Mixed Salts 10 MG TABLET PO ×2 (09:46→14:57)
[2021-05-02] MEDS: cloNIDine HCL 0.1 MG TABLET PO ×2 (09:46→20:41)
[2021-05-02] MEDS: Sertraline HCL 25 MG TABLET 75 MG PO (09:46)
[2021-05-02] MEDS: Gabapentin 600 MG TABLET PO ×3 (09:46→20:40)
[2021-05-02] MEDS: Benztropine Mesylate 0.5 MG TABLET PO ×2 (09:46→20:40)
[2021-05-02] MEDS: Lithium Carbonate 300 MG CAPSULE PO (09:46)
[2021-05-02] MEDS: methADONE HCl 20 MG/2 ML ORAL.CONC 50 MG PO (09:47)
--- NOTE | 2021-05-02 14:56 | HO.PSYCHPN ---
Subjective Subjective Date of Service: 05/02/21 Reason For Visit: Bipolar Disorder, ADHD, PTSD, Opioid, Cocaine use Subjective Notes: Conditional Voluntary Interim History: Pt sedated, drowsy. He denies this is the case and finds some random explanation for it (was just taking a nap). Pt reports sleeping and eating well. He reports hearing voices but less than before. He reports intermittent suicidal ideation but denies any plan or intent. He states he plans to return to his house. No behavioral concerns. Medication Compliance: Yes Side effects from medications: Yes (excessive sedation) Review of Systems Review of Systems Yes all other systems are reviewed and are negative (except psychiatric symptoms) Constitutional: Reports anorexia, Reports difficulty sleeping and Reports weight loss Eyes: Reports no additional eye complaints Reports system reviewed and no additional complaints, except as documented, Reports Normal hearing present and Reports sore throat Cardiovascular: Reports no additional cardiovascular complaints Respiratory: Reports no additional respiratory complaints Gastrointestinal: Reports no additional gastrointestinal complaints Genitourinary: Reports no additional male genitourinary complaints Musculoskeletal: Reports no additional musculoskeletal complaints Reports system reviewed and no additional complaints, except as documented, Reports Normal hearing present and Reports behavioral changes Psychiatric: Reports abnormal sleep pattern, Reports anxiety, Reports behavioral changes, Reports change in appetite, Reports depression, Reports difficulty concentrating, Reports auditory hallucinations, Reports hopelessness, Reports irritability, Reports anhedonia, Reports mood swings, Reports panic attacks and Reports suicidal ideation Endocrine: Reports no additional endocrine complaints Hematologic/Lymphatic: Reports no additional hematologic/lymphatic complaints Allergic/Immunologic: Reports no additional allergic/immunologic complaints Mental Status Exam Mental Status Exam Narrative: Patient Appearance:?Appropriate Patient Orientation:?Person, Place, Time and Situation Level of Consciousness:?drowsy but alert Patient Behavior:?calm, cooperative, adeuqate Eye Contact Mood Description:?better, though still Depressed and Anxious Affect Description:?fatiqued Patient Cognition Impaired:?No Ability to Follow Directions:?Good Speech Pattern:?Spontaneous Speech Memory Description:?Intact Hallucinations:?None Delusions:?Not Present Thought Process:?Distracted Thought Content:?intermittent SI w/out plans/intent; no HI Judgement:?fair Diagnostics Vital Signs (24Hr): Vital Signs - 24 hr 05/01/21 20:18 05/02/21 06:00 05/02/21 09:46 Temperature 98.0 F Pulse Rate 80 105 H 105 H Blood Pressure 118/69 118/73 118/73 Pulse Oximetry 98 Labs Results: 04/21/21 17:52 04/21/21 08:09 Imaging Radiology Impressions: ITS Impressions Chest X-Ray 04/25/21 14:22 IMPRESSION: Unremarkable examination. Medications Medications Current Medications Acetaminophen (Acetaminophen 325 Mg Tablet) 650 mg PO Q6H PRN PRN Reason: Headache/Pain Mild Scale (1-3) Al Hydroxide/Mg Hydroxide (Magnesium Hydrox/Alum Hydrox 30 Ml Oral.Susp) 30 ml PO Q6H PRN PRN Reason: Heartburn/Nausea Amphetamine/Dextroamphetamine (Amphetamine Mixed Salts 10 Mg Tablet) 10 mg PO 0800,1300 [facility] Last Admin: 05/02/21 09:46 Dose: 10 mg Documented by: Benzocaine (Throat Lozenge, Medicated Lozenge) 1 lozenge MUCOUS MEM Q2H PRN PRN Reason: Sore Throat Last Admin: 04/29/21 22:29 Dose: 1 lozenge Documented by: Benztropine Mesylate (Benztropine Mesylate 0.5 Mg Tablet) 0.5 mg PO BID [facility] Last Admin: 05/02/21 09:46 Dose: 0.5 mg Documented by: Chlorpromazine HCl (Chlorpromazine Hcl 25 Mg Tablet) 50 mg PO BEDTIME [facility] Last Admin: 05/01/21 20:19 Dose: 50 mg Documented by: Clonidine HCl (Clonidine Hcl 0.1 Mg Tablet) 0.1 mg PO BID [facility]; Protocol Last Admin: 05/02/21 09:46 Dose: 0.1 mg Documented by: Dicyclomine HCl (Dicyclomine Hcl 10 Mg Capsule) 10 mg PO TIDAC PRN PRN Reason: withdrawl Ergocalciferol (Ergocalciferol (Vitamin D2) 1,250 Mcg Capsule) 1,250 mcg PO Th@0900 [facility] Last Admin: 04/28/21 08:53 Dose: 1,250 mcg Documented by: Gabapentin (Gabapentin 600 Mg Tablet) 600 mg PO TID [facility] Last Admin: 05/02/21 09:46 Dose: 600 mg Documented by: Hydroxyzine HCl (Hydroxyzine Hcl 25 Mg Tablet) 25 mg PO Q6H PRN PRN Reason: Anxiety Last Admin: 04/20/21 11:57 Dose: 25 mg Documented by: Lidocaine (Lidocaine 4 % Patch Adh..Patch) 1 patch TRANSDERMA DAILY [facility]; Protocol Last Admin: 05/02/21 09:51 Dose: Not Given Documented by: Paxtonia Carbonate (Paxtonia Carbonate 300 Mg Capsule) 300 mg PO DAILY [facility] Last Admin: 05/02/21 09:46 Dose: 300 mg Documented by: Paxtonia Carbonate (Paxtonia Carbonate 300 Mg Capsule) 600 mg PO BEDTIME [facility] Last Admin: 05/01/21 20:19 Dose: 600 mg Documented by: Lorazepam (Lorazepam 1 Mg Tablet) 1 mg PO Q6H PRN PRN Reason: agitation, anxiety Last Admin: 05/02/21 04:21 Dose: 1 mg Documented by: Magnesium Hydroxide (Milk Of Magnesia 30 Ml Oral.Susp) 30 ml PO DAILY PRN PRN Reason: Constipation Last Admin: 05/02/21 09:45 Dose: 30 ml Documented by: Methadone HCl (Methadone Hcl 20 Mg/2 Ml Oral.Conc) 50 mg PO DAILY [facility] Last Admin: 05/02/21 09:47 Dose: 50 mg Documented by: Nicotine (Nicotine 21 Mg Patch.Td24) 21 mg TRANSDERMA DAILY [facility] Last Admin: 05/02/21 09:45 Dose: 21 mg Documented by: Nicotine Polacrilex (Nicotine Polacrilex 2 Mg Gum) 4 mg BUCCAL Q2H PRN PRN Reason: Nicotine Cravings Last Admin: 05/01/21 18:53 Dose: 4 mg Documented by: Olanzapine (Olanzapine 5 Mg Tablet) 5 mg PO Q6H PRN PRN Reason: agitation Last Admin: 04/25/21 11:23 Dose: 5 mg Documented by: Olanzapine (Olanzapine 7.5 Mg Tablet) 15 mg PO BEDTIME [facility] Last Admin: 05/01/21 20:20 Dose: 15 mg Documented by: Sertraline HCl (Sertraline Hcl 25 Mg Tablet) 75 mg PO DAILY [facility] Last Admin: 05/02/21 09:46 Dose: 75 mg Documented by: Trolamine Salicylate/Aloe Vera (Trolamine Salicylate 10%/Aloe Cream 35.4 Gm) 1 appl TOPICAL TID PRN PRN Reason: joint pain Valacyclovir HCl (Valacycyclovir Hcl 500 Mg Tablet) 500 mg PO DAILY [facility] Last Admin: 05/02/21 09:46 Dose: 500 mg Documented by: Allergies Allergies Allergy/AdvReac Type Severity Reaction Status Date / Time aspirin [ASA] AdvReac Unknown ABD UPSET Unverified 04/22/20 16:04 Assessment & Plan Assessment & Plan (1) Bipolar disorder: Status: Acute Code(s): F31.9 - Bipolar disorder, unspecified (2) PTSD (post-traumatic stress disorder): Status: Acute Code(s): F43.10 - Post-traumatic stress disorder, unspecified (3) Opioid use disorder, severe, in early remission, on maintenance therapy: Status: Acute Code(s): F11.21 - Opioid dependence, in remission (4) Cocaine use disorder: Status: Acute Code(s): F14.10 - Cocaine abuse, uncomplicated (5) ADHD: Status: Acute Code(s): F90.9 - Attention-deficit hyperactivity disorder, unspecified type 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 Currently pt says he is not sedated due to medications but has been looking drowsy in mil[place] Will continue to monitor Continue current regime. Greater than 50% of the session was spent on counseling and/or coordination of care Reason for contiued inpatient stay Substantial Risk for: inability to function
[2021-05-02 18:00] VITALS: BP 121/69; PULSE 95
[2021-05-02] MEDS: chlorproMAZINE HCl 25 MG TABLET 50 MG PO (20:40)
[2021-05-02] MEDS: Lithium Carbonate 300 MG CAPSULE 600 MG PO (20:40)
[2021-05-02 20:41] VITALS: BP 121/69; PULSE 95
[2021-05-02] MEDS: OLANZapine 7.5 MG TABLET 15 MG PO (20:41)
[2021-05-03 06:00] VITALS: BP 97/61; PULSE 70; RESP 16; TEMP 35.6; O2SAT 97
[2021-05-03 09:21] VITALS: BP 116/69; PULSE 76
[2021-05-03] MEDS: cloNIDine HCL 0.1 MG TABLET PO (09:21)
[2021-05-03] MEDS: methADONE HCl 20 MG/2 ML ORAL.CONC 50 MG PO (09:21)
[2021-05-03] MEDS: Nicotine 21 MG PATCH.TD24 TRANSDERMA (09:21)
[2021-05-03] MEDS: Gabapentin 600 MG TABLET PO (09:21)
[2021-05-03] MEDS: Benztropine Mesylate 0.5 MG TABLET PO (09:22)
[2021-05-03] MEDS: Amphetamine Mixed Salts 10 MG TABLET PO ×2 (09:22→12:28)
[2021-05-03] MEDS: Sertraline HCL 25 MG TABLET 75 MG PO (09:22)
[2021-05-03] MEDS: Lithium Carbonate 300 MG CAPSULE PO (09:22)
[2021-05-03] MEDS: Nicotine Polacrilex 2 MG GUM 4 MG BUCCAL (11:23)
[2021-05-03] MEDS: Naloxone HCl Nasal TAKE HOME 4 MG SPRAY NOSTRILALT (12:27)
--- NOTE | 2021-05-29 10:55 | P.DS_ITS ---
DS: Providers Provider Date of Service: 05/03/21 Date of admission: 04/19/21 23:41 Date of discharge: 05/03/21 Primary care physician: Unknown Physician Admitting clinician: Lu Rebolledo Attending physician on admission: Rodrigo King Consults: 04/20/21 16:06 Consult to Hospitalist Routine Consulting Provider: Hospitalist Reason For Exam: Transfer from [facility] 04/20/21 17:06 Addiction Medicine Routine Consulting Provider: Gayathri Mukherjee Reason for consultation: Methadone titration pt. Currently at 35 mg daily. Goal is 55 mg daily Has provider been notified: Yes Attending physician on discharge: Rodrigo King Discharging clinician: Mindy Evans DS: Diagnosis Discharge Diagnosis (1) Bipolar disorder: Status: Acute (2) PTSD (post-traumatic stress disorder): Status: Acute (3) Opioid use disorder, severe, in early remission, on maintenance therapy: Status: Acute (4) Cocaine use disorder: Status: Acute (5) ADHD: Status: Acute DS: Medications Discharge Medications Home Medications: Home Medications Medication Instructions Recorded Confirmed gabapentin 600 mg tablet 1 tab PO TID 04/20/21 04/20/21 methadone 10 mg/mL injection 35 mg 04/20/21 solution Previous Rx's Medication Instructions Recorded benztropine 0.5 mg tablet 0.5 mg PO BID #60 tab 05/03/21 clonidine HCl 0.1 mg tablet 0.1 mg PO BID #14 tab 05/03/21 dextroamphetamine-amphetamine 10 10 mg PO 0800,1300 #10 tab 05/03/21 mg tablet ergocalciferol (vitamin D2) 1,250 1,250 mcg PO Th@0900 #14 cap 05/03/21 mcg (50,000 unit) capsule (Vitamin D2) lidocaine 4 % topical patch 1 patch TRANSDERMAL DAILY #15 ea 05/03/21 (Lidocaine Pain Relief) lithium carbonate 300 mg capsule 300 mg PO DAILY #10 cap 05/03/21 lithium carbonate 300 mg capsule 600 mg PO BEDTIME #30 cap 05/03/21 nicotine 21 mg/24 hr daily 21 mg TRANSDERMAL DAILY #28 ea 05/03/21 transdermal patch olanzapine 7.5 mg tablet 15 mg PO BEDTIME #30 tab 05/03/21 sertraline 25 mg tablet 75 mg PO DAILY #90 tab 05/03/21 trolamine salicylate-aloe vera 10 1 appl TOPICAL TID PRN #85 g 05/03/21 % topical cream (Aspercreme with Aloe) valacyclovir 500 mg tablet 500 mg PO DAILY #10 tab 05/03/21 Mental Status Exam Mental Status Exam Narrative: Patient Appearance:?Appropriate Patient Orientation:?Person, Place, Time and Situation Level of Consciousness:?drowsy but alert Patient Behavior:?calm, cooperative, adeuqate Eye Contact Mood Description:?better, though still Depressed and Anxious Affect Description:?fatiqued Patient Cognition Impaired:?No Ability to Follow Directions:?Good Speech Pattern:?Spontaneous Speech Memory Description:?Intact Hallucinations:?None Delusions:?Not Present Thought Process:?Distracted Thought Content:?intermittent SI w/out plans/intent; no HI Judgement:?fair Data Imaging Diagnostic Imaging Impressions Chest X-Ray 04/25/21 14:22 IMPRESSION: Unremarkable examination. DS: Summary Hospital Course Hospital Course: Pt admitted on a conditional voluntary status. Medications were reviewed, adjusted, titrated. Pt met with addictions team in consultation for ongoing treatment. He worked with milieu team on symptoms and skills and will return to his out patient team for ongoing treatment. Time spent discussing smoking cessation with patient: 3 to 10 minutes Status at Discharge Cognitive/behavioral status at discharge: non-suicidal, non-psychotic Functional status at discharge: independent ambulation Overall status at discharge: patient is progressing back to baseline Time Spent with Patient Time attestation: Total time spent providing and/or coordinating discharge services:35 Time spent: Greater than 30 minutes Discharge Plan Discharge Patient Disposition: Home, Self-Care Discharge Diagnosis: Bipolar Disorder Polysubstance use disorder Referrals: Recovery Support Navigator: Kel Cardona ([facility]) [Other] - 1 Week (Call Kel to set up time to meet in [place]) Therapist: Nancy Finnegan ([facility]) [Other] - 05/04/21 12:00 pm (In-office [facility] transportation will pick you up at your house at 11:30 am and will bring you back at 1:15 pm (ride confirmation #: [id number])) Psych Prescriber: Annita Baez ([facility]) [Other] - 05/31/21 4:30 pm (Telehealth-you will be sent an email with a link to virtual appointment. Use your Ipad to log in to appointment.) Psych Prescriber: Annita Baez (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 and return home cherry picker operator at 7:30 am at the clinic (ride confirmation number is: [id number] ) Mariama Donovan [Nurse Practitioner] - 05/11/21 9:00 am ( ) Discharge Medications: New valacyclovir 500 mg Tablet 500 mg PO DAILY Qty: 10 RF: 0 nicotine 21 mg/24 hr Patch 24 Hour 21 mg transdermal DAILY Qty: 28 RF: 0 clonidine HCl 0.1 mg Tablet 0.1 mg PO BID Qty: 14 RF: 0 benztropine 0.5 mg Tablet 0.5 mg PO BID Qty: 60 RF: 0 dextroamphetamine-amphetamine 10 mg Tablet 10 mg PO 0800,1300 Qty: 10 RF: 0 lithium carbonate 300 mg Capsule 600 mg PO BEDTIME Qty: 30 RF: 0 lithium carbonate 300 mg Capsule 300 mg PO DAILY Qty: 10 RF: 0 olanzapine 7.5 mg Tablet 15 mg PO BEDTIME Qty: 30 RF: 0 sertraline 25 mg Tablet 75 mg PO DAILY Qty: 90 RF: 0 Aspercreme with Aloe 10 % Cream 1 appl topical TID PRN (Reason: joint pain) Qty: 85 RF: 0 lidocaine [Lidocaine Pain Relief] 4 % Adhesive Patch,Medicated 1 patch transdermal DAILY Qty: 15 RF: 0 ergocalciferol (vitamin D2) [Vitamin D2] 1,250 mcg (50,000 unit) Capsule 1,250 mcg PO Th@0900 Qty: 14 RF: 0 Continued gabapentin 600 mg tablet 1 tab PO TID RF: 0 methadone 10 mg/mL Solution 35 mg RF: 0 Discontinued quetiapine 25 mg tablet 1 tab PO BEDTIME RF: 0 atomoxetine 100 mg capsule 1 cap PO QAM RF: 0 Discharge Orders: Discharge Order (Routine); Ordered 05/03/21 Ordered By: Mindy Evans Diet: advance to usual diet Activity on Discharge: As tolerated Stand Alone Forms: Patient Portal Discharge page, Community Support Care Plan Goals: 1. Maintain mood 2. No SI/HI. Health Concerns: 1. Follow up with PCP Plan of Treatment: 1. Take medications as prescribed 2. Go to nearest ED or call 911 in event of emergency Assessment: No SI/HI. Discharge Date/Time: 05/03/21 12:45
== END 2021-05-03 12:45 | disposition home or self-care (01) | DRG 885 ==
PROVIDERS: Family Medicine; Social Worker; Admitting Provider Psychiatry & Neurology Psychiatry; Visit Provider Clinical Nurse Specialist Psychiatric/Mental Health, Adult
DX: F31.9 Bipolar disorder, unspecified (principal); F11.20 Opioid dependence, uncomplicated; F90.9 Attention-deficit hyperactivity disorder, unspecified type; F17.210 Nicotine dependence, cigarettes, uncomplicated; G89.29 Other chronic pain; F14.10 Cocaine abuse, uncomplicated; Z71.6 Tobacco abuse counseling; F43.10 Post-traumatic stress disorder, unspecified; Z87.820 Personal history of traumatic brain injury; Z88.6 Allergy status to analgesic agent; Z79.899 Other long term (current) drug therapy
CPT/HCPCS: 0241U; 36415; 71046; 80053; 80061; 80178; 82306; 82550; 82607; 82746; 83036; 84443; 85025; 86704; 86706; 86803; 87340; 87389; 87635; 93005

== ENCOUNTER 2022-04-26 09:56 | Emergency (ER) | payer OTHER, SELFPAY ==
--- NOTE | ~2022-04-26 | CT_ITS ---
EXAMINATION: CT ABDOMEN AND PELVIS WITHOUT CONTRAST CLINICAL INFORMATION: Right lower quadrant and left lower quadrant tenderness. COMPARISON: March 08, 2018 TECHNIQUE: Multidetector volumetric imaging was performed from the superior aspect of the liver through the pubic symphysis. Sagittal and coronal reformatted images were obtained on the technologist's workstation. This CT examination was performed using dose optimization techniques as appropriate, variously including the following: *Automated exposure control *Adjustment of mA and/or kV according to patient size (this includes techniques or standardized protocols for targeted exams where dose is matched to indication/reason for exam; i.e. extremities or head) *Use of iterative reconstruction technique DLP: 613 mGy-cm FINDINGS: LUNG BASES: The visualized lung bases are unremarkable. No pleural or pericardial effusion. LIVER, GALLBLADDER, AND BILIARY TREE: The liver is normal in size, shape, and attenuation. No focal hepatic lesion or biliary ductal dilatation is present. The gallbladder is unremarkable with no evidence of radiopaque gallstones, gallbladder wall thickening, or obvious pericholecystic inflammatory changes. PANCREAS: There is some fatty involution of the pancreas without abnormal mass or peripancreatic inflammatory change. SPLEEN: Unremarkable. Small accessory spleen present. ADRENAL GLANDS: Unremarkable. KIDNEYS AND URETERS: The kidneys are normal in size, shape, and attenuation. No hydronephrosis, hydroureter, or calculi seen. No perinephric stranding. There appears be a subcentimeter region of diminished density about the medial aspect interpolar region of the left kidney likely representing a small cyst. BLADDER: Decompressed GASTROINTESTINAL TRACT: No dilated loops of large or small bowel are evident. No free air or free fluid. No pericolonic inflammatory change is identified. The appendix appears unremarkable. There is a moderate colonic stool burden present. ABDOMINAL WALL: No significant hernia is appreciated. LYMPH NODES: No lymphadenopathy appreciated. VASCULAR: Unremarkable. PELVIC VISCERA: Unremarkable. OSSEOUS STRUCTURES: Unremarkable. No suspicious destructive bony lesions identified. CT/CT abdomen pelvis wo IV con IMPRESSION: No significant abnormality identified. No evidence of ileus or obstruction. No evidence of obstructive uropathy. Fleischner guidelines were followed.
[2022-04-26 10:26] VITALS: BP 132/83; PULSE 77; RESP 17; TEMP 37.1; O2SAT 97; BMI 30.9
--- NOTE | 2022-04-26 11:48 | ED_ITS ---
HPI - Abdominal Pain General Chief Complaint: Abdominal Pain Stated Complaint: abd pain Time Seen by Provider: 04/26/22 10:15 Source: patient Mode of arrival: ambulatory Limitations: no limitations History of Present Illness HPI narrative: 31-year-old male who presents emergency department for evaluation of lower a bdominal pain. Patient states pain started suddenly 4 days prior. He runs his hand over his lower abdomen when asked to localize the pain. He states the pain is a constant, sharp pain which is 9/10 at its worst. The patient had associated nausea but no vomiting. He denied fever or chills. He has noted urinary frequency but no dysuria. He states that a similar pain 2 years prior but did not get a diagnosis. He has been taking Tylenol and ibuprofen with no relief his pain. His last bowel movement was 2 days prior. MD elicited complaint: abdominal pain Pertinent past history: none Onset (ago): day(s) (4) Pain Consistency: constant Location: LUQ and RLQ Severity: severe Pain scale (0-10): 9 Quality: sharp Radiation: none Migration to: no migration Exacerbating factors: nothing Relieving factors: nothing Associated symptoms: nausea Treatments prior to arrival: NSAIDs (No relief) and other (Acetaminophen without relief) Related Data Home Medications Medication Instructions Recorded Confirmed gabapentin 600 mg tablet 1 tab PO TID 04/20/21 04/20/21 methadone 10 mg/mL injection 35 mg 04/20/21 solution Previous Rx's Medication Instructions Recorded benztropine 0.5 mg tablet 0.5 mg PO BID #60 tabs 05/03/21 clonidine HCl 0.1 mg tablet 0.1 mg PO BID #14 tabs 05/03/21 dextroamphetamine-amphetamine 10 10 mg PO 0800,1300 #10 tabs 05/03/21 mg tablet ergocalciferol (vitamin D2) 1,250 1,250 mcg PO Th@0900 #14 caps 05/03/21 mcg (50,000 unit) capsule (Vitamin D2) lidocaine 4 % topical patch 1 patch transdermal DAILY #15 ea 05/03/21 (Lidocaine Pain Relief) lithium carbonate 300 mg capsule 300 mg PO DAILY #10 caps 05/03/21 lithium carbonate 300 mg capsule 600 mg PO BEDTIME #30 caps 05/03/21 nicotine 21 mg/24 hr daily 21 mg transdermal DAILY #28 ea 05/03/21 transdermal patch olanzapine 7.5 mg tablet 15 mg PO BEDTIME #30 tabs 05/03/21 sertraline 25 mg tablet 75 mg PO DAILY #90 tabs 05/03/21 trolamine salicylate-aloe vera 10 1 appl topical TID PRN joint pain 05/03/21 % topical cream (Aspercreme with #85 grams Aloe) valacyclovir 500 mg tablet 500 mg PO DAILY #10 tabs 05/03/21 ondansetron 4 mg disintegrating 4 mg PO Q6-8H PRN nausea and 04/26/22 tablet vomiting #14 tabs Allergies Allergy/AdvReac Type Severity Reaction Status Date / Time aspirin [ASA] AdvReac Unknown ABD UPSET Verified 04/26/22 10:25 Review of Systems Review of Systems Yes all other systems are reviewed and are negative [facility] Past Medical History [facility] Narrative: Social history: Patient states he smokes 1 pack of cigarettes per day x5 years. He denies alcohol use. He denies drug use. Medical History ADHD Bipolar disorder Cocaine use disorder Opioid use disorder, severe, in early remission, on maintenance therapy PTSD (post-traumatic stress disorder) Social History Social History Household Members: Other Household Members Other:: Roommates Housing: Other Housing Other:: Vague response when asked about living situation. Sober house? Homeless? Do you presently have visiting nurse or other home services: No Unable to assess alcohol history related to: Unknown Patient Tobacco Use Status: Current everyday Tobacco user Tobacco use type: Cigarette Smoked in Last 30 Days: Yes e-Cigarette/Vaping Use: Never Used Second Hand Smoke Exposure: Yes Use of substances other than those prescribed or required for medical reasons: No Substance Use Type: Crack/Cocaine, Heroin and Opiates Advance Directives: No Advance Directives Information Provided: No service: No Sexual orientation: Straight/Heterosexual Physical Exam ED Vital Signs: Vital Signs - 24 hr 04/26/22 10:26 04/26/22 12:16 04/26/22 14:07 Temperature 98.7 F 98.0 F Pulse Rate 77 57 88 Respiratory Rate 17 16 18 Blood Pressure 132/83 118/83 110/84 Pulse Oximetry 97 98 99 Oxygen Delivery Method Room Air Room Air Room Air BMI result Body Mass Index 30.9 Const General: cooperative and no acute distress Orientation/consciousness: oriented to person and oriented to place Limitations: no limitations HENMT Head: Yes normal to inspection, Yes normocephalic and Yes atraumatic Ears: external ears normal General nose exam: Normal external nose present Face and sinus: Yes normal facial exam Mouth: Normal oral and palatal mucosa present Throat: Yes posterior oropharynx normal Eyes General: appearance normal, both eyes and all related structures Pupils: Equal, round and reactive pupils present Neck Neck: Yes normal visual inspection, Yes no lymphadenopathy, Yes trachea midline and Yes supple Chest Chest palpation & inspection: normal inspection of the chest and normal palpation of entire chest wall Resp Effort & Inspection: normal respiratory effort and able to speak in complete sentences Auscultation: clear to auscultation bilaterally Cardio Rate: regular rate Rhythm: regular rhythm Heart sounds: S1 normal heart sound present, S2 normal heart sound present and no murmurs GI Inspection: Yes normal to inspection Palpation (GI): Soft to palpation, Tenderness to palpation present (GI) in the LLQ (Moderate) and in the RLQ (Moderate) and no guarding Auscultation: normal bowel sounds General: Yes no CVA tenderness Back/Spine/Pelvis Back: no CVA tenderness Skin General skin exam: no rashes or lesions noted Neuro General: oriented to person and oriented to place Cranial nerves: Yes CN's II-XII intact bilaterally and Yes Equal, round and reactive pupils present Cognition (Neuro): normal cognition Motor exam (neuro): 5/5 motor strength present throughout Extrem General: Yes normal to inspection Psych Appearance: grossly normal Speech and movement: Normal speech and movement present Affect: normal affect Attitude: cooperative Thought process: Normal thought process present Thought content: Normal thought content present Course Course Course Narrative: 31-year-old male who presents emergency department for evaluation lower abdominal pain x4 days, the pain is constant, sharp 9/10. Patient had similar pain 2 years prior but did not get a diagnosis time. Patient had associated nausea with no other symptoms. Pain was not relieved by ibuprofen or acetamino phen. Vital signs were normal. Examination revealed mild left lower quadrant and right lower quadrant tenderness. I ordered a CBC, BMP, liver panel, lipase, lithium, urinalysis, urine drug screen. CT scan abdomen pelvis with IV contrast will be obtained. Patient was treated with normal saline IV x1 L, Reglan 10 mg IV, Benadryl 50 mg IV and Toradol 15 mg IV. 1500: Patient's laboratory evaluation was unremarkable. COVID-[address] scan of the abdomen pelvis did not reveal a clear etiology for the patient's pain. Patient got minimal relief with the above treatment. He did receive morphine 4 mg IV states that he is feeling better. The patient was advised to take Tylenol and ibuprofen for his pain. He was also given prescription for Zofran for his nausea. He was given printed and verbal instructions and discharged home. MDM - Abdominal Pain Lab Data Result diagrams: 04/26/22 12:10 04/26/22 12:10 Labs: Lab Results 04/26/22 04/26/22 04/26/22 Range/Units 11:52 12:10 12:10 WBC 5.3 (4.8-10.8) X10*3/uL RBC 4.59 L (4.60-5.80) X10*6/uL Hgb 13.7 L (14.0-18.0) g/dl Hct 41.8 L (42.0-52.0) % MCV 91.1 (80.0-98.0) fL MCH 29.8 (27.0-33.0) pg MCHC 32.8 (31.0-36.0) g/dl RDW 14.1 (11.0-16.0) % Plt Count 308 (160-400) X10*3/uL MPV 10.8 (9.4-12.4) fL Immature Gran % (Auto) 0.2 (0.0-0.4) % Neut % (Auto) 61.4 (45-73) % Lymph % (Auto) 30.1 (20-40) % [place] % (Auto) 5.1 (2-11) % Eos % (Auto) 2.1 (0-4) % Baso % (Auto) 1.1 (0-2) % Lymph # (Auto) 1.6 (1.2-4.9) X10*3/uL [place] # (Auto) 0.3 (0.1-1.2) X10*3/uL Eos # (Auto) 0.1 (0.0-0.4) X10*3/uL Baso # (Auto) 0.1 (0.0-0.2) X10*3/uL Abs Immat Gran (auto) 0.01 (0.00-0.03) X10*3/uL Absolute Neuts (auto) 3.3 (2.0-8.3) x10*3/uL Absolute Nucleated RBC 0.000 (0.0-0.012) X10*3/uL Nucleated RBC % (auto) 0.0 (0.0-0.2) /100WBC Sodium 138 (135-145) mmol/L Potassium 4.8 (3.3-5.1) mmol/L Chloride 101 (96-108) mmol/L Carbon Dioxide 28 (22-29) mmol/L Anion Gap 14 (12-20) BUN 13 (9-16) mg/dL Creatinine 0.79 (0.5-1.4) mg/dL Estim Creat Clear Calc 126.2 Estimated GFR > 60 Random Glucose 82 (60-115) mg/dL Calcium 9.8 D (8.4-10.2) mg/dL Total Bilirubin 0.5 (0.0-1.0) mg/dL Direct Bilirubin < 0.2 (0.0-0.5) mg/dL AST 25 (5-37) U/L ALT 29 (0-40) U/L Alkaline Phosphatase 128 H (39-117) U/L Total Protein 7.7 (6.5-8.0) g/dL Albumin 4.6 (3.5-5.0) g/dL Lipase 17 (8-78) U/L [place] (0.60-1.20) mmol/L COVID-19 (OZ) Negative (Negative) COVID-19 Clin Com See Note 04/26/22 Range/Units 12:10 WBC (4.8-10.8) X10*3/uL RBC (4.60-5.80) X10*6/uL Hgb (14.0-18.0) g/dl Hct (42.0-52.0) % MCV (80.0-98.0) fL MCH (27.0-33.0) pg MCHC (31.0-36.0) g/dl RDW (11.0-16.0) % Plt Count (160-400) X10*3/uL MPV (9.4-12.4) fL Immature Gran % (Auto) (0.0-0.4) % Neut % (Auto) (45-73) % Lymph % (Auto) (20-40) % [place] % (Auto) (2-11) % Eos % (Auto) (0-4) % Baso % (Auto) (0-2) % Lymph # (Auto) (1.2-4.9) X10*3/uL [place] # (Auto) (0.1-1.2) X10*3/uL Eos # (Auto) (0.0-0.4) X10*3/uL Baso # (Auto) (0.0-0.2) X10*3/uL Abs Immat Gran (auto) (0.00-0.03) X10*3/uL Absolute Neuts (auto) (2.0-8.3) x10*3/uL Absolute Nucleated RBC (0.0-0.012) X10*3/uL Nucleated RBC % (auto) (0.0-0.2) /100WBC Sodium (135-145) mmol/L Potassium (3.3-5.1) mmol/L Chloride (96-108) mmol/L Carbon Dioxide (22-29) mmol/L Anion Gap (12-20) BUN (9-16) mg/dL Creatinine (0.5-1.4) mg/dL Estim Creat Clear Calc Estimated GFR Random Glucose (60-115) mg/dL Calcium (8.4-10.2) mg/dL Total Bilirubin (0.0-1.0) mg/dL Direct Bilirubin (0.0-0.5) mg/dL AST (5-37) U/L ALT (0-40) U/L Alkaline Phosphatase (39-117) U/L Total Protein (6.5-8.0) g/dL Albumin (3.5-5.0) g/dL Lipase (8-78) U/L [place] 0.08 L (0.60-1.20) mmol/L COVID-19 (OZ) (Negative) COVID-19 Clin Com Discharge Plan Discharge Clinical Impression: Nausea Abdominal pain Qualifiers: Abdominal location: lower abdomen, unspecified Qualified Code(s): R10.30 - Lower abdominal pain, unspecified Patient Disposition: Home, Self-Care Instructions: Abdominal Pain (ED) Additional Instructions: Your blood work was normal. Your CT scan of your abdomen pelvis without IV contrast did not reveal a clear cause for your pain. Take ibuprofen 200 mg pills, 3 pills every 6 hours as needed for pain. Take Tylenol (acetaminophen) 500 mg pills, 2 pills every 4 to 6 hours as needed for pain. Take Zofran ODT 4 mg pills, 1 pill dissolved in your mouth every 8 hours as needed for nausea and vomiting. Follow-up with your doctor in 2 days. Please return to the emergency department if your symptoms get worse or if you develop any symptoms that are concerning to you. Prescriptions: New ondansetron 4 mg tablet,disintegrating 4 mg PO Q6-8H PRN (Reason: nausea and vomiting) Qty: 14 0RF No Action gabapentin 600 mg tablet 1 tab PO TID methadone 10 mg/mL Solution 35 mg Rx Instructions: [facility] plan to titrate. Dose started at 30 mg daily and increased by increments of 5 mg every 3 days to a dose of 55 mg daily. valacyclovir 500 mg Tablet 500 mg PO DAILY Qty: 10 0RF nicotine 21 mg/24 hr Patch 24 Hour 21 mg transdermal DAILY Qty: 28 0RF clonidine HCl 0.1 mg Tablet 0.1 mg PO BID Qty: 14 0RF Protocol: Hold for SBP< HOLD for SBP < : 90 benztropine 0.5 mg Tablet 0.5 mg PO BID Qty: 60 0RF dextroamphetamine-amphetamine 10 mg Tablet 10 mg PO 0800,1300 Qty: 10 0RF lithium carbonate 300 mg Capsule 600 mg PO BEDTIME Qty: 30 0RF lithium carbonate 300 mg Capsule 300 mg PO DAILY Qty: 10 0RF olanzapine 7.5 mg Tablet 15 mg PO BEDTIME Qty: 30 0RF sertraline 25 mg Tablet 75 mg PO DAILY Qty: 90 0RF Aspercreme with Aloe 10 % Cream 1 appl topical TID PRN (Reason: joint pain) Qty: 85 0RF lidocaine [Lidocaine Pain Relief] 4 % Adhesive Patch,Medicated 1 patch transdermal DAILY Qty: 15 0RF Protocol: Apply to: Apply to: lower back ergocalciferol (vitamin D2) [Vitamin D2] 1,250 mcg (50,000 unit) Capsule 1,250 mcg PO Th@0900 Qty: 14 0RF
[2022-04-26 12:13] LABS: COVID-19 Test Negative (Negative); IDNOW Serial# 16C4AD1C
[2022-04-26 12:15] LABS: MANUAL DIFF FLAG NO
[2022-04-26 12:16] VITALS: BP 118/83; PULSE 57; RESP 16; O2SAT 98
[2022-04-26 12:22] LABS: Basophils Absolute Auto 0.1 X10*3/uL (0.0-0.2); Basophils Percent Auto 1.1 % (0-2); Eosinophils Absolute Auto 0.1 X10*3/uL (0.0-0.4); Eosinophils Percent Auto 2.1 % (0-4); Hematocrit 41.8 % (42.0-52.0); Hemoglobin 13.7 g/dl (14.0-18.0); Imm Gran Abs Auto 0.01 X10*3/uL (0.00-0.03); Imm Gran Pct Auto 0.2 % (0.0-0.4); Lymphocytes Absolute Auto 1.6 X10*3/uL (1.2-4.9); Lymphocytes Percent Auto 30.1 % (20-40); Mean Corpuscular HGB Conc 32.8 g/dl (31.0-36.0); Mean Corpuscular Hemoglobin 29.8 pg (27.0-33.0); Mean Corpuscular Volume 91.1 fL (80.0-98.0); Mean Platelet Volume 10.8 fL (9.4-12.4); Monocytes Absolute Auto 0.3 X10*3/uL (0.1-1.2); Monocytes Percent Auto 5.1 % (2-11); Neutrophils Absolute Auto 3.3 x10*3/uL (2.0-8.3); Neutrophils Percent Auto 61.4 % (45-73); Platelet Count 308 X10*3/uL (160-400); Red Blood Count 4.59 X10*6/uL (4.60-5.80); Red Cell Distribution Width 14.1 % (11.0-16.0); White Blood Count 5.3 X10*3/uL (4.8-10.8)
[2022-04-26 12:34] LABS: Alanine Aminotransferase 29 U/L (0-40); Albumin Level 4.6 g/dL (3.5-5.0); Alkaline Phosphatase 128 U/L (39-117); Anion Gap 14 (12-20); Aspartate Amino Transferase 25 U/L (5-37); Bilirubin Direct < 0.2 mg/dL (0.0-0.5); Bilirubin Total 0.5 mg/dL (0.0-1.0); Blood Urea Nitrogen 13 mg/dL (9-16); Calcium 9.8 mg/dL (8.4-10.2); Carbon Dioxide 28 mmol/L (22-29); Chloride 101 mmol/L (96-108); Creatinine Clr Calc Pharmacy 126.2; Estimated Glomerular Filt Rate > 60; Glucose Random 82 mg/dL (60-115); Lipase 17 U/L (8-78); Lithium 0.08 mmol/L (0.60-1.20); Potassium 4.8 mmol/L (3.3-5.1); Sodium 138 mmol/L (135-145); Total Protein 7.7 g/dL (6.5-8.0)
[2022-04-26] MEDS: Ketorolac Tromethamine 15 MG/ML VIAL IVPUSH (12:55)
[2022-04-26] MEDS: 0.9 % Sodium Chloride 1,000 ML 999 ML IV (12:56)
[2022-04-26] MEDS: diphenhydrAMINE HCL 50 MG/ML VIAL IVPUSH (12:56)
[2022-04-26] MEDS: Metoclopramide HCl 10 MG/2 ML VIAL IVPUSH (12:56)
[2022-04-26] MEDS: Morphine Sulfate 4 MG/ML CARTRIDGE IVPUSH (14:05)
[2022-04-26 14:07] VITALS: BP 110/84; PULSE 88; RESP 18; TEMP 36.7; O2SAT 99
== END 2022-04-26 15:33 | disposition home or self-care (01) ==
PROVIDERS: Emergency Medicine; Emergency Provider Emergency Medicine Emergency Medical Services; PCP Internal Medicine Geriatric Medicine
DX: R11.0 Nausea (principal); R10.30 Lower abdominal pain, unspecified; Z20.822 Contact with and (suspected) exposure to COVID-19; F11.20 Opioid dependence, uncomplicated; Z79.899 Other long term (current) drug therapy
CPT/HCPCS: 74176; 80048; 80076; 80178; 83690; 85025; 87635; 96361; 96374; 96375; 99284; J1200; J1885; J2270; J2765

== ENCOUNTER 2022-05-20 16:33 | Emergency (ER) | payer OTHER, SELFPAY ==
--- NOTE | ~2022-05-20 | CT_ITS ---
EXAMINATION: CT ABDOMEN AND PELVIS WITHOUT CONTRAST CLINICAL INFORMATION: Left flank pain COMPARISON: 04/26/2022 TECHNIQUE: Multidetector volumetric imaging was performed from the superior aspect of the liver through the pubic symphysis. Sagittal and coronal reformatted images were obtained on the technologist's workstation. This CT examination was performed using dose optimization techniques as appropriate, variously including the following: *Automated exposure control *Adjustment of mA and/or kV according to patient size (this includes techniques or standardized protocols for targeted exams where dose is matched to indication/reason for exam; i.e. extremities or head) *Use of iterative reconstruction technique DLP: 619 mGy-cm FINDINGS: LUNG BASES: The visualized lung bases are unremarkable. LIVER, GALLBLADDER, AND BILIARY TREE: The liver is normal in size, shape, and attenuation. No focal hepatic lesion or biliary ductal dilatation is present. The gallbladder is unremarkable with no evidence of radiopaque gallstones, gallbladder wall thickening, or obvious pericholecystic inflammatory changes. PANCREAS: Unremarkable. SPLEEN: Unremarkable. ADRENAL GLANDS: Unremarkable. KIDNEYS AND URETERS: The kidneys are normal in size, shape, and attenuation. No hydronephrosis, hydroureter, or calculi seen. No perinephric stranding. BLADDER: Unremarkable. GASTROINTESTINAL TRACT: Scattered left colonic diverticula. No evidence of diverticulitis. Normal appendix. Stomach and small bowel unremarkable. ABDOMINAL WALL: No significant hernia is appreciated. LYMPH NODES: Normal. VASCULAR: Unremarkable. PELVIC VISCERA: Unremarkable. OSSEOUS STRUCTURES: Unremarkable. CT/CT abdomen pelvis wo IV con IMPRESSION: * No acute findings within the abdomen or pelvis to explain the patient's symptomatology. * No urinary calculi or hydronephrosis. * Scattered left colonic diverticula without evidence of diverticulitis.
--- NOTE | ~2022-05-20 | US_ITS ---
EXAMINATION: US SCROTUM CLINICAL INFORMATION: Bilateral testicular pain. COMPARISON: None TECHNIQUE: A sonogram of the scrotum was performed assessing faustin-scale appearance and color Doppler flow. Spectral Doppler analysis of the arterial and venous flow were performed in the testes bilaterally. FINDINGS: RIGHT: Right testicle measures 3.7 x 1.9 x 2.6 cm, volume 9 mL. No focal testicular parenchymal lesions are visualized. Spectral Doppler analysis of the arterial and venous flow is normal in the right testis. Right epididymal head is normal in size. No right hydrocele or varicocele is seen. Right epididymal Doppler flow is normal. LEFT: Left testicle measures 3.6 x 1.6 x 2.8 cm, volume 9 mL. No focal testicular parenchymal lesions are visualized. Spectral Doppler analysis of the arterial and venous flow is normal in the left testis. Left epididymal head is normal in size. No left hydrocele or varicocele is seen. Left epididymal Doppler flow is normal. US/US scrotum doppler IMPRESSION: Unremarkable testicular ultrasound.
--- NOTE | ~2022-05-20 | US_ITS ---
EXAMINATION: US SCROTUM CLINICAL INFORMATION: Bilateral testicular pain. COMPARISON: None TECHNIQUE: A sonogram of the scrotum was performed assessing faustin-scale appearance and color Doppler flow. Spectral Doppler analysis of the arterial and venous flow were performed in the testes bilaterally. FINDINGS: RIGHT: Right testicle measures 3.7 x 1.9 x 2.6 cm, volume 9 mL. No focal testicular parenchymal lesions are visualized. Spectral Doppler analysis of the arterial and venous flow is normal in the right testis. Right epididymal head is normal in size. No right hydrocele or varicocele is seen. Right epididymal Doppler flow is normal. LEFT: Left testicle measures 3.6 x 1.6 x 2.8 cm, volume 9 mL. No focal testicular parenchymal lesions are visualized. Spectral Doppler analysis of the arterial and venous flow is normal in the left testis. Left epididymal head is normal in size. No left hydrocele or varicocele is seen. Left epididymal Doppler flow is normal. US/US scrotum IMPRESSION: Unremarkable testicular ultrasound.
[2022-05-20 16:36] VITALS: BP 128/81; PULSE 75; RESP 18; TEMP 37.2; O2SAT 98; BMI 30.1
[2022-05-20 16:56] LABS: MANUAL DIFF FLAG NO
[2022-05-20 16:57] LABS: Basophils Absolute Auto 0.1 X10*3/uL (0.0-0.2); Basophils Percent Auto 0.7 % (0-2); Eosinophils Absolute Auto 0.3 X10*3/uL (0.0-0.4); Eosinophils Percent Auto 4.2 % (0-4); Hematocrit 39.4 % (42.0-52.0); Imm Gran Abs Auto 0.01 X10*3/uL (0.00-0.03); Imm Gran Pct Auto 0.1 % (0.0-0.4); Lymphocytes Absolute Auto 2.4 X10*3/uL (1.2-4.9); Lymphocytes Percent Auto 34.9 % (20-40); Mean Corpuscular Hemoglobin 29.8 pg (27.0-33.0); Mean Corpuscular Volume 90.4 fL (80.0-98.0); Mean Platelet Volume 10.3 fL (9.4-12.4); Monocytes Absolute Auto 0.4 X10*3/uL (0.1-1.2); Monocytes Percent Auto 5.5 % (2-11); Neutrophils Absolute Auto 3.8 x10*3/uL (2.0-8.3); Neutrophils Percent Auto 54.6 % (45-73); Platelet Count 291 X10*3/uL (160-400); Red Blood Count 4.36 X10*6/uL (4.60-5.80); Red Cell Distribution Width 14.3 % (11.0-16.0); White Blood Count 6.9 X10*3/uL (4.8-10.8)
[2022-05-20 16:58] LABS: Appearance Urine Clear; Color Urine Yellow; Glucose Urine UA Negative (Negative); Leukocyte Esterase Urine Negative (Negative); Nitrite Urine Negative (Negative); Specific Gravity - Urine 1.025 (1.005-1.025); Urine Blood Negative (Negative); Urine Ketones Trace mg/dL (Negative); Urine Protein Negative (Neg-Trace)
--- NOTE | 2022-05-20 17:09 | ED_ITS ---
HPI - General Adult General Chief complaint: Abdominal Pain Stated complaint: lower back and abd pain Time Seen by Provider: 05/20/22 17:08 Source: patient Mode of arrival: ambulatory Limitations: no limitations History of Present Illness HPI narrative: This is a 31-year-old male past medical history significant for ADHD, bipolar disorder, cocaine use disorder, opiate use disorder, PTSD presenting to the emergency department with complaints of lower abdominal pain with radiation to left flank also vague complaints of nausea and vomiting. He tells me he vomits multiple times per day its billious vomit. Patient denies history of kidney stones and states he has never had pain like this before. Reports pain is worse w/ eating. Patient denies fever, chills, testicular pain, testicular discharge, changes in urination, changes in bowel habits, chest pain, shortness of breath, weakness, headache and dizziness. Related Data Home Medications Medication Instructions Recorded Confirmed gabapentin 600 mg tablet 1 tab PO TID 04/20/21 04/20/21 methadone 10 mg/mL injection 35 mg 04/20/21 solution Previous Rx's Medication Instructions Recorded benztropine 0.5 mg tablet 0.5 mg PO BID #60 tabs 05/03/21 clonidine HCl 0.1 mg tablet 0.1 mg PO BID #14 tabs 05/03/21 dextroamphetamine-amphetamine 10 10 mg PO 0800,1300 #10 tabs 05/03/21 mg tablet ergocalciferol (vitamin D2) 1,250 1,250 mcg PO Th@0900 #14 caps 05/03/21 mcg (50,000 unit) capsule (Vitamin D2) lidocaine 4 % topical patch 1 patch transdermal DAILY #15 ea 05/03/21 (Lidocaine Pain Relief) lithium carbonate 300 mg capsule 300 mg PO DAILY #10 caps 05/03/21 lithium carbonate 300 mg capsule 600 mg PO BEDTIME #30 caps 05/03/21 nicotine 21 mg/24 hr daily 21 mg transdermal DAILY #28 ea 05/03/21 transdermal patch olanzapine 7.5 mg tablet 15 mg PO BEDTIME #30 tabs 05/03/21 sertraline 25 mg tablet 75 mg PO DAILY #90 tabs 05/03/21 trolamine salicylate-aloe vera 10 1 appl topical TID PRN joint pain 05/03/21 % topical cream (Aspercreme with #85 grams Aloe) valacyclovir 500 mg tablet 500 mg PO DAILY #10 tabs 05/03/21 ondansetron 4 mg disintegrating 4 mg PO Q6-8H PRN nausea and 04/26/22 tablet vomiting #14 tabs ondansetron 4 mg disintegrating 4 mg PO Q6H PRN nausea and 05/20/22 tablet vomiting #14 tabs Allergies Allergy/AdvReac Type Severity Reaction Status Date / Time aspirin [ASA] AdvReac Unknown ABD UPSET Verified 04/26/22 10:25 Review of Systems Review of Systems: Constitutional : No Weight loss, No Fever, No Chills, No Fatigue, No Malaise ENT/Mouth : No sore throat, No Rhinorrhea Eyes: No Eye Pain, No Swelling, No Redness Cardiovascular : No Chest Pain, No SOB, No Dyspnea on Exertion, No Orthopnea, No Edema, No Palpitations Respiratory : No Cough, No Sputum, No Wheezing Gastrointestinal : + Nausea, + Vomiting, No Diarrhea, No Constipation, + abdominal Pain, No Hematochezia, No Melena Genitourinary : No Dysuria, No Urinary Frequency, No Hematuria, Musculoskeletal : No joint pain, No Myalgias, No Joint Swelling, + flank pain Skin : No Skin Lesions, No rash Neuro : No Weakness, No Numbness, No Dizziness, No Headache Psych : No Anxiety/Panic, No Depression All other systems reviewed and are negative Yes all other systems are reviewed and are negative [facility] Past Medical History Attestation statement: The following information was validated with the patient. Source: old records reviewed and nursing notes reviewed Medical History ADHD Bipolar disorder Cocaine use disorder Opioid use disorder, severe, in early remission, on maintenance therapy PTSD (post-traumatic stress disorder) Social History Social History Household Members: Other Household Members Other:: Roommates Housing: Other Housing Other:: Vague response when asked about living situation. Sober house? Homeless? Do you presently have visiting nurse or other home services: No Unable to assess alcohol history related to: Unknown Patient Tobacco Use Status: Current everyday Tobacco user Tobacco use type: Cigarette e-Cigarette/Vaping Use: Never Used Second Hand Smoke Exposure: Yes Substance Use Type: Crack/Cocaine, Heroin and Opiates Advance Directives: No Advance Directives Information Provided: No service: No Sexual orientation: Straight/Heterosexual Physical Exam ED Vital Signs: Vital Signs - 24 hr 05/20/22 16:36 05/20/22 19:01 05/20/22 20:43 Temperature 98.9 F 99.2 F 98.0 F Pulse Rate 75 66 54 Respiratory Rate 18 18 19 Blood Pressure 128/81 132/82 129/84 Pulse Oximetry 98 99 98 Oxygen Delivery Method Room Air Room Air Room Air BMI result Body Mass Index 30.1 Vital signs stable Appearance: Alert.? Oriented X3.? No acute distress.? Head: Normocephalic, atraumatic, no step-offs or deformities Eyes: Pupils equal, round and reactive to light.? ENT: Pharynx normal.? Neck: Normal inspection.? Neck supple.? CVS: Normal heart rate and rhythm.? Pulses normal.? Respiratory: No respiratory distress.? Breath sounds normal.? Abdomen: Soft and + lower abd tenderness, - rosving and murphys sign .? Skin: Skin warm and dry.? Normal skin color.? Normal skin turgor.? Extremities: No lower extremity edema.? No calf ttp. 5/5 strength to bilateral upper and lower extremities Back: no CVA tenderness bilaterally Neuro: Oriented X 3.? No motor deficit.? No sensory deficit. CN 2-12 intact Course Reevaluation(s) Reevaluation #1: CBC appears to be within normal limits. Chemistry with no acute findings lipase within. Urine clean without infection. CT of the abdomen and pelvis with no acute finding. Patient now reporting nausea and still complaining pain, Toradol will be given, fluids and Zofran. Will re-evaluate at a later time. Patient did express vague complaints of testicular discomfort. Will rule out torsion. Time: 19:41 Reevaluation #2: Urine with no acute findings. CT with no acute findings. No urinary colliculus eye or hydronephrosis. Scattered left chronic diverticula without evidence of diverticulitis. Ultrasound of scrotum unremarkable. Patient reports symptomatic improvement, able to tolerate p.o.. At this time patient will be discharged home. Advised to return with new or worsening symptoms and follow-up with GI if necessary. STD testing pending. Time: 23:35 Medical Decision Making [facility] Narrative Medical decision making narrative: [id number] 31-year-old male presents to the emergency department with complaints of lower abdominal pain with radiation to left flank and associated nausea and vomiting for the past week. Physical exam w/ lower abd pain b/l. Negative CVA tenderness b/l Will rule out kidney stones, diverticulitis. Unlikely acute abdomen, appendicitis, cholecystitis, obstruction . Other differentials include viral infection. No signs of ischemic bowel. Plan at this time is basic labs, urine, imaging. Medical Records Medical records reviewed: Yes I reviewed the patient's medical records. Lab Data Lab results reviewed: Yes I reviewed the patient's lab results. Result diagrams: 05/20/22 16:46 05/20/22 16:46 Labs: Lab Results 05/20/22 05/20/22 05/20/22 Range/Units 16:46 16:46 16:46 WBC 6.9 (4.8-10.8) X10*3/uL RBC 4.36 L (4.60-5.80) X10*6/uL Hgb 13.0 L (14.0-18.0) g/dl Hct 39.4 L (42.0-52.0) % MCV 90.4 (80.0-98.0) fL MCH 29.8 (27.0-33.0) pg MCHC 33.0 (31.0-36.0) g/dl RDW 14.3 (11.0-16.0) % Plt Count 291 (160-400) X10*3/uL MPV 10.3 (9.4-12.4) fL Immature Gran % (Auto) 0.1 (0.0-0.4) % Neut % (Auto) 54.6 (45-73) % Lymph % (Auto) 34.9 (20-40) % Granite % (Auto) 5.5 (2-11) % Eos % (Auto) 4.2 H (0-4) % Baso % (Auto) 0.7 (0-2) % Lymph # (Auto) 2.4 (1.2-4.9) X10*3/uL Granite # (Auto) 0.4 (0.1-1.2) X10*3/uL Eos # (Auto) 0.3 (0.0-0.4) X10*3/uL Baso # (Auto) 0.1 (0.0-0.2) X10*3/uL Abs Immat Gran (auto) 0.01 (0.00-0.03) X10*3/uL Absolute Neuts (auto) 3.8 (2.0-8.3) x10*3/uL Absolute Nucleated RBC 0.000 (0.0-0.012) X10*3/uL Nucleated RBC % (auto) 0.0 (0.0-0.2) /100WBC Sodium 140 (135-145) mmol/L Potassium 4.3 (3.3-5.1) mmol/L Chloride 103 (96-108) mmol/L Carbon Dioxide 26 (22-29) mmol/L Anion Gap 15 (12-20) BUN 13 (9-16) mg/dL Creatinine 0.86 (0.5-1.4) mg/dL Estim Creat Clear Calc 114.3 Estimated GFR > 60 Random Glucose 82 (60-115) mg/dL Calcium 9.5 (8.4-10.2) mg/dL Total Bilirubin 0.3 (0.0-1.0) mg/dL Direct Bilirubin < 0.2 (0.0-0.5) mg/dL AST 21 (5-37) U/L ALT 22 (0-40) U/L Alkaline Phosphatase 124 H (39-117) U/L Total Protein 7.3 (6.5-8.0) g/dL Albumin 4.4 (3.5-5.0) g/dL Lipase 26 (8-78) U/L Urine Color Yellow Urine Appearance Clear Urine pH 6.0 (5.0-9.0) Ur Specific [place] 1.025 (1.005-1.025) Urine Protein Negative (Neg-Trace) mg/dL Urine Glucose (UA) Negative (Negative) mg/dL Urine Ketones Trace (Negative) mg/dL Urine Blood Negative (Negative) Urine Nitrite Negative (Negative) Ur Leukocyte Esterase Negative (Negative) Critical Care Time Critical Care Time Critical Care Time: No Discharge Plan Discharge Clinical Impression: Abdominal pain, lower, Flank pain Patient Disposition: Home, Self-Care Instructions: Abdominal Pain (ED), Flank Pain (ED) Additional Instructions: Take your medications as prescribed. If you were prescribed antibiotics today, it is important that you take your medication to their entirety, do not skip any doses, do not finish them early. Follow-up with your primary care provider this week. Follow-up with Gastroenterology if pain continues. Return to the emergency department with new or worsening symptoms. Such as fevers, chills, chest pain, shortness of breath, nausea, vomiting, dizziness, he adache, vision changes, lethargy In case of emergency call 911 Prescriptions: New ondansetron 4 mg tablet,disintegrating 4 mg PO Q6H PRN (Reason: nausea and vomiting) Qty: 14 0RF No Action gabapentin 600 mg tablet 1 tab PO TID methadone 10 mg/mL Solution 35 mg Rx Instructions: [facility] plan to titrate. Dose started at 30 mg daily and increased by increments of 5 mg every 3 days to a dose of 55 mg daily. valacyclovir 500 mg Tablet 500 mg PO DAILY Qty: 10 0RF nicotine 21 mg/24 hr Patch 24 Hour 21 mg transdermal DAILY Qty: 28 0RF clonidine HCl 0.1 mg Tablet 0.1 mg PO BID Qty: 14 0RF Protocol: Hold for SBP< HOLD for SBP < : 90 benztropine 0.5 mg Tablet 0.5 mg PO BID Qty: 60 0RF dextroamphetamine-amphetamine 10 mg Tablet 10 mg PO 0800,1300 Qty: 10 0RF lithium carbonate 300 mg Capsule 600 mg PO BEDTIME Qty: 30 0RF lithium carbonate 300 mg Capsule 300 mg PO DAILY Qty: 10 0RF olanzapine 7.5 mg Tablet 15 mg PO BEDTIME Qty: 30 0RF sertraline 25 mg Tablet 75 mg PO DAILY Qty: 90 0RF Aspercreme with Aloe 10 % Cream 1 appl topical TID PRN (Reason: joint pain) Qty: 85 0RF lidocaine [Lidocaine Pain Relief] 4 % Adhesive Patch,Medicated 1 patch transdermal DAILY Qty: 15 0RF Protocol: Apply to: Apply to: lower back ergocalciferol (vitamin D2) [Vitamin D2] 1,250 mcg (50,000 unit) Capsule 1,250 mcg PO Th@0900 Qty: 14 0RF ondansetron 4 mg tablet,disintegrating 4 mg PO Q6-8H PRN (Reason: nausea and vomiting) Qty: 14 0RF Referrals: [facility] [Provider Group] - 2 weeks Sharon Preciado [Emergency Nurse] - 2 days Stand Alone Forms: Work/School Release
[2022-05-20 17:21] LABS: Alanine Aminotransferase 22 U/L (0-40); Albumin Level 4.4 g/dL (3.5-5.0); Alkaline Phosphatase 124 U/L (39-117); Anion Gap 15 (12-20); Aspartate Amino Transferase 21 U/L (5-37); Bilirubin Direct < 0.2 mg/dL (0.0-0.5); Bilirubin Total 0.3 mg/dL (0.0-1.0); Blood Urea Nitrogen 13 mg/dL (9-16); Calcium 9.5 mg/dL (8.4-10.2); Carbon Dioxide 26 mmol/L (22-29); Chloride 103 mmol/L (96-108); Creatinine Clr Calc Pharmacy 114.3; Estimated Glomerular Filt Rate > 60; Glucose Random 82 mg/dL (60-115); Lipase 26 U/L (8-78); Potassium 4.3 mmol/L (3.3-5.1); Sodium 140 mmol/L (135-145); Total Protein 7.3 g/dL (6.5-8.0)
[2022-05-20 19:01] VITALS: BP 132/82; PULSE 66; RESP 18; TEMP 37.3; O2SAT 99
[2022-05-20] MEDS: 0.9 % Sodium Chloride 1,000 ML 999 ML IV (20:40)
[2022-05-20] MEDS: ondansetron HCL 4 MG/2 ML VIAL IVPUSH (20:41)
[2022-05-20] MEDS: Ketorolac Tromethamine 15 MG/ML VIAL 30 MG IVPUSH (20:41)
[2022-05-20 20:43] VITALS: BP 129/84; PULSE 54; RESP 19; TEMP 36.7; O2SAT 98
[2022-05-21 02:18] LABS: CT PCR NOT DETECTED (Not Detect.); NG PCR NOT DETECTED (Not Detect.)
== END 2022-05-20 23:49 | disposition home or self-care (01) ==
PROVIDERS: Physician Assistant; Emergency Provider Student in an Organized Health Care Education/Training Program
DX: R10.30 Lower abdominal pain, unspecified (principal); R10.9 Unspecified abdominal pain; N50.811 Right testicular pain; N50.812 Left testicular pain; R11.2 Nausea with vomiting, unspecified; F11.20 Opioid dependence, uncomplicated; F14.10 Cocaine abuse, uncomplicated; F17.210 Nicotine dependence, cigarettes, uncomplicated; F31.9 Bipolar disorder, unspecified; Z79.899 Other long term (current) drug therapy
CPT/HCPCS: 36415; 74176; 76870; 80053; 81003; 82248; 83690; 85025; 87491; 87591; 93975; 96361; 96374; 96375; 99284; J1885; J2405

== ENCOUNTER 2022-06-27 10:33 | Emergency (ER) | payer OTHER, SELFPAY ==
--- NOTE | ~2022-06-27 | XR_ITS ---
EXAMINATION: XR CHEST CLINICAL INFORMATION: Shortness of breath COMPARISON: Previous chest x-ray April 2021 TECHNIQUE: 2 views of the chest were obtained. FINDINGS: No significant abnormality is noted involving the heart, lungs, mediastinum, bony thorax or soft tissues. XR/XR chest 2V IMPRESSION: Unremarkable examination.
[2022-06-27 11:00] VITALS: BP 145/96; PULSE 66; RESP 16; TEMP 37.3; O2SAT 100; BMI 29.2
--- NOTE | 2022-06-27 11:02 | PC.NURSE ---
PT reports cough headache, N/V/D, LLQ pain for 3 days. VSS. +BS in all quadrants. LSCTA
--- OUTSIDE RECORDS SUMMARY | 2022-06-27 11:22 | XMS_ITS | Continuity of Care Document ---
:1990 Author Organization [facility] Address [address] [place] [address]- Care Team Providers Name Role Phone Name Zoran QUEEN Primary Care Physician Encounter [facility] Date(s): 09/29/20 - 09/29/[address] [address]- Encounter Diagnosis Opiate overdose (Final) - 09/29/20 Discharge Disposition: A-D/C Home Attending Physician: Lonny Ryan DO Admitting Physician: Lonny Ryan DO Referring Physician: Not on Staff, Referring MD Allergies, Adverse Reactions, Alerts Substance Reaction Severity Status NKA Active Immunizations Given and Recorded Vaccine Date Status Refusal Reason influenza virus vaccine, inactivated1 05/14/15 Given 1Early/Late Reason: Med Not Available Medications clonazePAM 1 mg oral tablet 1 tablet = 1 mg, By Mouth, 2 times a day, # 28 tablet, 1 Refills, Maintenance, 09/30/18 9:40:56 EST,Tablet Start Date: 09/30/18 Stop Date: 10/28/18 Status: OrderedColace sodium 100 mg oral capsule 100 mg, 1, capsule, By Mouth, 2 times a day, # 60 capsule, Refills 0, Tot. Refills 0, Maintenance, 09/30/18 9:42:12 EST, Route to Pharmacy Electronically, [id number], [facility]/pharmacy #[id number] Start Date: 09/30/18 Status: Orderedgabapentin 600 mg oral tablet 1 tablet = 600 mg, By Mouth, 3 times a day, # 90 tablet, 0 Refills, Maintenance, 09/30/18 9:42:19 EST, Tablet Start Date: 09/30/18 Stop Date: 10/30/18 Status: Orderedhaloperidol 5 mg oral tablet 5 mg, 1, tablet, By Mouth, 2 times a day, # 60 tablet, Refills 0, Tot. Refills 0, Maintenance, 09/30/18 9:42:47 EST, Route to Pharmacy Electronically, [id number], [facility]/pharmacy#[id number] Start Date: 09/30/18 Stop Date: 10/30/18 Status: Orderedlithium 450 mg oral tablet, extended release 1 tablet = 450 mg, By Mouth, 2 times a day, # 60 tablet, 0 Refills, Maintenance, 09/30/18 9:43:23 EST, CR Tablet Start Date: 09/30/18 Stop Date: 10/30/18 Status: Orderedmethadone 10 mg/5 mL oral solution 22.5 mL = 45 mg, By Mouth, Daily in AM, 0 Refills, Maintenance, 09/30/18 9:43:43 EST, Solution Start Date: 09/30/18 Status: Orderedprazosin 1 mg oral capsule 4 mg, 4, capsule, By Mouth, Daily at bedtime, # 120 capsule, Refills 0, Tot. Refills 0, Maintenance,09/30/18 9:44:10 EST, Route to Pharmacy Electronically, [id number], [facility]/pharmacy #[id number] Start Date: 09/30/18 Stop Date: 10/30/18 Status: Ordered Problem List Condition Effective Dates Status Health Status Informant Chest pain, musculoskeletal(Confirmed) Active Chronic back pain greater than 3 Active months duration(Confirmed) Depression with anxiety(Confirmed) Active Nicotine dependence(Confirmed) Active Results Radiology Reports Exam Date Time Procedure Performing Provider Status 09/29/20 2:53 PM Abdomen AP Dipti Winston; Cristian (Verified) Notes:(Abdomen AP) Reason For Exam: concern for drug packets in alimentary canal;Foreign BodyRESULT: XR Abdomen AP XR Abdomen AP INDICATION/CLINICAL QUESTION: Foreign body. COMPARISON: 10/30/2012. FINDINGS: Prominent small bowel loops are seen within the midline of the upper abdomen. No evidence of obstruction. No radiodense foreign bodies. There is no free air. Partially visualized lung bases are clear. IMPRESSION: No radiodense foreign body. I have personally reviewed the images and I agree with this report. WSN: [id number] Ordering Physician: Todd Ceballos Dictated By: Gustavo Cortez MD Dictated Date/Time: 09/29/20 3:24 pm Reviewed By: Mary Crandall MD Signed By: Mary Crandall MD Signed Date/Time: 09/29/20 3:29 pm Transcribed By: KENDRA Transcribed Date/Time: 09/29/20 3:08 pm Vital Signs Most recent to oldest 1 2 3 [Reference Range]: Oxygen Saturation [94-100 %] 95 % 95 % 96 % (09/29/20 7:10 PM) (09/29/20 4:35 PM) (09/29/20 4:0 2 PM) Pulse Rate [55-90 bpm] 90 bpm 89 bpm 87 bpm (09/29/20 7:10 PM) (09/29/20 4:35 PM) (09/29/20 4:0 2 PM) Blood Pressure [90-138/55-84 mm 114/57 mm Hg 116/62 mm Hg 114/62 mm Hg Hg] (09/29/20 7:10 PM) (09/29/20 4:35 PM) (09/29/20 1:2 7 PM) Respiratory Rate [16-30 br/min] 14 br/min 14 br/min 16 br/min *L* *L* (09/29/20 4:02 PM ) (09/29/20 7:10 PM) (09/29/20 4:35 PM) Temperature [96.8-100.4 DegF] 97.6 DegF (09/29/20 1:27 PM) Mode of Delivery (Oxygen) Room air Room air Room a ir (09/29/20 7:10 PM) (09/29/20 4:35 PM) (09/29/20 4:0 2 PM) Blood pressure sites Arm, left (09/29/20 1:27 PM) Temperature Route Oral (09/29/20 1:27 PM) Social History Social History Type Response Smoking Status Current every day smoker entered on: 05/13/15 Sex Male
[2022-06-27 12:14] LABS: MANUAL DIFF FLAG NO
--- NOTE | 2022-06-27 12:15 | ED.ABDPAIN ---
HPI - Abdominal Pain General Chief Complaint: Abdominal Pain Stated Complaint: Abd pain/Nausea/Cough Time Seen by Provider: 06/27/22 11:13 Source: patient Mode of arrival: ambulatory Limitations: no limitations History of Present Illness HPI narrative: patient is a 31-year-old male who presents to the emergency department for evaluation of abdominal pain with nausea and vomiting. He states that he has had this pain in the past multiple times. He has been seen in the emergency department for similar symptoms. He states he is due to follow-up with his primary care provider within the next 2 weeks. Today he states that the pain became increasingly intolerable and he had to leave work early. abdominal pain is localized to the left lower quadrant. He states that he vomited once today a small amount of bilious vomit. he is unable to identify any exacerbating or alleviating factors. Denies associated fevers, chills, chest pain, shortness of breath, difficulty breathing, cough, upper abdominal pain, dysuria, constipation, diarrhea, urinary frequency, penile drainage, Testicular pain or swelling. Related Data Home Medications Medication Instructions Recorded Confirmed gabapentin 600 mg tablet 1 tab PO TID 04/20/21 04/20/21 methadone 10 mg/mL injection 35 mg 04/20/21 solution Previous Rx's Medication Instructions Recorded benztropine 0.5 mg tablet 0.5 mg PO BID #60 tabs 05/03/21 clonidine HCl 0.1 mg tablet 0.1 mg PO BID #14 tabs 05/03/21 dextroamphetamine-amphetamine 10 10 mg PO 0800,1300 #10 tabs 05/03/21 mg tablet ergocalciferol (vitamin D2) 1,250 1,250 mcg PO Th@0900 #14 caps 05/03/21 mcg (50,000 unit) capsule (Vitamin D2) lidocaine 4 % topical patch 1 patch transdermal DAILY #15 ea 05/03/21 (Lidocaine Pain Relief) lithium carbonate 300 mg capsule 300 mg PO DAILY #10 caps 05/03/21 lithium carbonate 300 mg capsule 600 mg PO BEDTIME #30 caps 05/03/21 nicotine 21 mg/24 hr daily 21 mg transdermal DAILY #28 ea 05/03/21 transdermal patch olanzapine 7.5 mg tablet 15 mg PO BEDTIME #30 tabs 05/03/21 sertraline 25 mg tablet 75 mg PO DAILY #90 tabs 09/28/21 trolamine salicylate-aloe vera 10 1 appl topical TID PRN joint pain 05/03/21 % topical cream (Aspercreme with #85 grams Aloe) valacyclovir 500 mg tablet 500 mg PO DAILY #10 tabs 05/03/21 ondansetron 4 mg disintegrating 4 mg PO Q6-8H PRN nausea and 04/26/22 tablet vomiting #14 tabs ondansetron 4 mg disintegrating 4 mg PO Q6H PRN nausea and 05/20/22 tablet vomiting #14 tabs ondansetron 4 mg disintegrating 4 mg PO Q8H PRN nausea and 06/27/22 tablet vomiting #10 tabs Allergies Allergy/AdvReac Type Severity Reaction Status Date / Time aspirin [ASA] AdvReac Unknown ABD UPSET Verified 04/26/22 10:25 Review of Systems Review of Systems Constitutional : No Weight loss, No Fever, No Chills ENT/Mouth :? No sore throat, No Rhinorrhea Eyes: No Swelling, No Redness Cardiovascular : No Chest Pain, No SOB, No Edema Respiratory : No Cough, No Sputum, No Wheezing Gastrointestinal : Positive Nausea, Positive Vomiting, no Diarrhea, positive abdominal pain, No Hematochezia, No Melena Genitourinary : No Dysuria, No Urinary Frequency, No Hematuria, No Urgency? Musculoskeletal : No joint pain, No Myalgias, No Joint Swelling Skin : No Skin Lesions, No rash Neuro : No Weakness, No Numbness, No Dizziness, No Headache Psych : No Anxiety/Panic, No Depression PMFSH Past Medical History Attestation statement: The following information was validated with the patient. Source: old records reviewed Medical History ADHD Bipolar disorder Cocaine use disorder Opioid use disorder, severe, in early remission, on maintenance therapy PTSD (post-traumatic stress disorder) Social History Social History Household Members: Other Household Members Other:: Roommates Housing: Other Housing Other:: Vague response when asked about living situation. Sober house? Homeless? Do you presently have visiting nurse or other home services: No Unable to assess alcohol history related to: Unknown Patient Tobacco Use Status: Current everyday Tobacco user Tobacco use type: Cigarette e-Cigarette/Vaping Use: Never Used Second Hand Smoke Exposure: Yes Substance Use Type: Crack/Cocaine, Heroin and Opiates Advance Directives: No Advance Directives Information Provided: No service: No Sexual orientation: Straight/Heterosexual Physical Exam ED Vital Signs: Vital Signs - 24 hr 06/27/22 11:00 06/27/22 13:39 Temperature 99.2 F Pulse Rate 66 66 Respiratory Rate 16 16 Blood Pressure 145/96 H 131/97 H Pulse Oximetry 100 100 Oxygen Delivery Method Room Air Room Air BMI result Body Mass Index 29.2 Appearance: Alert.?Oriented to person, place and time. No acute distress.?Normal affect. Eyes: Pupils equal, round and reactive to light.? ENT: Pharynx normal.?? Neck: Normal inspection.? Neck supple.?? CVS: Heart sounds normal. Normal heart rate and rhythm.? Pulses normal.?? Respiratory: No respiratory distress.? Lung sounds clear to auscultation bilaterally?? Abdomen: Soft with mild left lower abdominal tenderness. No rebound tenderness. No guarding. No rigidity. Negative Rovsing sign, negative psoas sign, negative Fay sign. Normoactive bowel sounds. Skin: Skin warm and dry.? Normal skin color.? Extremities: No lower extremity edema.? Neuro: Moves all extremities spontaneously. Sensation intact bilaterally. No focal neuro deficits. Ambulates with normal steady gait. Course Course Course Narrative: Patient is a 31-year-old male with a past medical history of ADHD, bipolar disorder, cocaine use disorder, opiate use disorder, PTSD presenting to emergency department for evaluation of abdominal pain with nausea and vomiting. He is well-appearing at the time of examination, nontoxic, afebrile without tachycardia, tachypnea, hypoxia. Abdominal examination is overall benign, has mild lower abdominal tenderness upon palpation, no CVA tenderness is noted. Will obtain CBC to evaluate for leukocytosis/ anemia, CMP and lipase to evaluate for abnormal electrolytes /abnormal renal function/ abnormal hepatic/biliary function, and Urinalysis. Patient was seen in the emergency department approximately 1 month ago, had a CT at that time with no acute findings, no nephrolithiasis or hydronephrosis, no diverticulitis, unremarkable scrotal ultrasound, negative STI testing. Patient to receive 1 L normal saline IV fluid, ondansetron IV, ketorolac IV. Reevaluation(s) Reevaluation #1: CBC overall unremarkable. Nursing staff attempted IV insertion for medication x2. Unable to place IV line at this time. Patient declines additional attempts to be made. Discussed I can offer oral medications to help with symptoms, though they may not be as effective as IV medications. Patient is agreeable at this time for oral meds. COVID- 19 testing is positive, patient made aware at this time. Time: 12:26 Reevaluation #2: Chemistry labs hemolyzed, patient declining additional blood draw. At this time have low suspicion for low significant electrolyte abnormality, impaired renal function. has had similar episodes in the past. After Zofran is able to tolerate oral intake. Discussed plan of care for discharge home, will set with new prescription for ondansetron, and courage rest, hydration. Offered back slow but however patient declines. Provided with return to work note per CDC guidelines. Time: 13:27 Medications Administered Discontinued Medications Generic Name Dose Route Start Last Admin Trade Name Freq PRN Reason Stop Dose Admin Acetaminophen 975 mg 06/27/22 12:27 06/27/22 12:38 Acetaminophen 325 Mg Tablet PO 06/27/22 12:28 975 mg ONCE ONE Administration Ibuprofen 600 mg 06/27/22 12:27 06/27/22 12:37 Ibuprofen 600 Mg Tablet PO 06/27/22 12:28 600 mg ONCE ONE Administration Ondansetron HCl 4 mg 06/27/22 12:27 06/27/22 12:37 Ondansetron Odt 4 Mg Tab.Rapdis TRANSLINGU 06/27/22 12:28 4 mg ONCE ONE Administration MDM - Abdominal Pain Medical Records Attestation: I reviewed the patient's medical records. Lab Data Attestation: I reviewed the patient's lab results. Result diagrams: 06/27/22 12:04 06/27/22 12:04 Labs: Lab Results 06/27/22 06/27/22 06/27/22 Range/Units 12:04 12:04 12:04 WBC 6.0 (4.8-10.8) X10*3/uL RBC 5.19 (4.60-5.80) X10*6/uL Hgb 15.5 (14.0-18.0) g/dl Hct 47.1 (42.0-52.0) % MCV 90.8 (80.0-98.0) fL MCH 29.9 (27.0-33.0) pg MCHC 32.9 (31.0-36.0) g/dl RDW 13.5 (11.0-16.0) % Plt Count 256 (160-400) X10*3/uL MPV 11.3 (9.4-12.4) fL Immature Gran % (Auto) 0.3 (0.0-0.4) % Neut % (Auto) 75.1 H (45-73) % Lymph % (Auto) 21.4 (20-40) % [place] % (Auto) 2.7 (2-11) % Eos % (Auto) 0.2 (0-4) % Baso % (Auto) 0.3 (0-2) % Lymph # (Auto) 1.3 (1.2-4.9) X10*3/uL [place] # (Auto) 0.2 (0.1-1.2) X10*3/uL Eos # (Auto) 0.0 (0.0-0.4) X10*3/uL Baso # (Auto) 0.0 (0.0-0.2) X10*3/uL Abs Immat Gran (auto) 0.02 (0.00-0.03) X10*3/uL Absolute Neuts (auto) 4.5 (2.0-8.3) x10*3/uL Absolute Nucleated RBC 0.000 (0.0-0.012) X10*3/uL Nucleated RBC % (auto) 0.0 (0.0-0.2) /100WBC Sodium Cancelled Potassium Cancelled Chloride Cancelled Carbon Dioxide Cancelled Anion Gap Cancelled BUN Cancelled Creatinine Cancelled Estim Creat Clear Calc Cancelled Estimated GFR Cancelled Random Glucose Cancelled Calcium Cancelled Magnesium Cancelled Total Bilirubin Cancelled AST Cancelled ALT Cancelled Alkaline Phosphatase Cancelled Total Protein Cancelled Albumin Cancelled Lipase Cancelled COVID-19 (OZ) (Negative) COVID-19 Clin Com Influenza Type A (TOO) Negative (Negative) Influenza Type B (TOO) Negative (Negative) Influenza A & B Note See Note 06/27/22 Range/Units 12:04 WBC (4.8-10.8) X10*3/uL RBC (4.60-5.80) X10*6/uL Hgb (14.0-18.0) g/dl Hct (42.0-52.0) % MCV (80.0-98.0) fL MCH (27.0-33.0) pg MCHC (31.0-36.0) g/dl RDW (11.0-16.0) % Plt Count (160-400) X10*3/uL MPV (9.4-12.4) fL Immature Gran % (Auto) (0.0-0.4) % Neut % (Auto) (45-73) % Lymph % (Auto) (20-40) % [place] % (Auto) (2-11) % Eos % (Auto) (0-4) % Baso % (Auto) (0-2) % Lymph # (Auto) (1.2-4.9) X10*3/uL [place] # (Auto) (0.1-1.2) X10*3/uL Eos # (Auto) (0.0-0.4) X10*3/uL Baso # (Auto) (0.0-0.2) X10*3/uL Abs Immat Gran (auto) (0.00-0.03) X10*3/uL Absolute Neuts (auto) (2.0-8.3) x10*3/uL Absolute Nucleated RBC (0.0-0.012) X10*3/uL Nucleated RBC % (auto) (0.0-0.2) /100WBC Sodium Potassium Chloride Carbon Dioxide Anion Gap BUN Creatinine Estim Creat Clear Calc Estimated GFR Random Glucose Calcium Magnesium Total Bilirubin AST ALT Alkaline Phosphatase Total Protein Albumin Lipase COVID-19 (OZ) Positive A (Negative) COVID-19 Clin Com See Note Influenza Type A (TOO) (Negative) Influenza Type B (TOO) (Negative) Influenza A & B Note Imaging Data Chest x-ray: Radiologist's impression: XR/XR chest 2V IMPRESSION: Unremarkable examination. Discharge Plan Discharge Clinical Impression: COVID-19 Patient Disposition: Home, Self-Care Instructions: COVID-19 (Coronavirus Disease 2019) (ED) Additional Instructions: - Please isolate yourself at home, Avoid contact with others as you are contagious. - Take Zofran as needed for nausea every 8 hours. - Be sure to rest, stay well hydrated, eat small frequent meals. - You can take ibuprofen 200 mg, 3 tablets (600mg) every 6-8 hours as needed for pain, in addition to Tylenol 500 mg, 2 tablets (1,000mg) every 4-6 hours as needed for pain, but not to exceed 3 doses daily (3,000mg).? - Must remain out of work for 5 days since symptom onset/positive testing. Soonest return date would be 07/02/2022. You must also have improvement in your symptoms and be without a fever for 24 hours without the use of Tylenol or ibuprofen. Prescriptions: New ondansetron 4 mg tablet,disintegrating 4 mg PO Q8H PRN (Reason: nausea and vomiting) Qty: 10 0RF No Action gabapentin 600 mg tablet 1 tab PO TID methadone 10 mg/mL Solution 35 mg Rx Instructions: [facility] plan to titrate. Dose started at 30 mg daily and increased by increments of 5 mg every 3 days to a dose of 55 mg daily. valacyclovir 500 mg Tablet 500 mg PO DAILY Qty: 10 0RF nicotine 21 mg/24 hr Patch 24 Hour 21 mg transdermal DAILY Qty: 28 0RF clonidine HCl 0.1 mg Tablet 0.1 mg PO BID Qty: 14 0RF Protocol: Hold for SBP< HOLD for SBP < : 90 benztropine 0.5 mg Tablet 0.5 mg PO BID Qty: 60 0RF dextroamphetamine-amphetamine 10 mg Tablet 10 mg PO 0800,1300 Qty: 10 0RF lithium carbonate 300 mg Capsule 600 mg PO BEDTIME Qty: 30 0RF lithium carbonate 300 mg Capsule 300 mg PO DAILY Qty: 10 0RF olanzapine 7.5 mg Tablet 15 mg PO BEDTIME Qty: 30 0RF sertraline 25 mg Tablet 75 mg PO DAILY Qty: 90 0RF Aspercreme with Aloe 10 % Cream 1 appl topical TID PRN (Reason: joint pain) Qty: 85 0RF lidocaine [Lidocaine Pain Relief] 4 % Adhesive Patch,Medicated 1 patch transdermal DAILY Qty: 15 0RF Protocol: Apply to: Apply to: lower back ergocalciferol (vitamin D2) [Vitamin D2] 1,250 mcg (50,000 unit) Capsule 1,250 mcg PO Th@0900 Qty: 14 0RF ondansetron 4 mg tablet,disintegrating 4 mg PO Q6-8H PRN (Reason: nausea and vomiting) Qty: 14 0RF ondansetron 4 mg tablet,disintegrating 4 mg PO Q6H PRN (Reason: nausea and vomiting) Qty: 14 0RF Referrals: Name,MD Zoran [Primary Care Provider] - Stand Alone Forms: Work/School Release Interventions: ED Discharge Assessment Last Done: 06/27/22 14:19 Discharge Date/Time: 06/27/22 14:20
[2022-06-27 12:20] LABS: Basophils Percent Auto 0.3 % (0-2); Eosinophils Percent Auto 0.2 % (0-4); Hematocrit 47.1 % (42.0-52.0); Hemoglobin 15.5 g/dl (14.0-18.0); Imm Gran Abs Auto 0.02 X10*3/uL (0.00-0.03); Imm Gran Pct Auto 0.3 % (0.0-0.4); Lymphocytes Absolute Auto 1.3 X10*3/uL (1.2-4.9); Lymphocytes Percent Auto 21.4 % (20-40); Mean Corpuscular HGB Conc 32.9 g/dl (31.0-36.0); Mean Corpuscular Hemoglobin 29.9 pg (27.0-33.0); Mean Corpuscular Volume 90.8 fL (80.0-98.0); Mean Platelet Volume 11.3 fL (9.4-12.4); Monocytes Absolute Auto 0.2 X10*3/uL (0.1-1.2); Monocytes Percent Auto 2.7 % (2-11); Neutrophils Absolute Auto 4.5 x10*3/uL (2.0-8.3); Neutrophils Percent Auto 75.1 % (45-73); Platelet Count 256 X10*3/uL (160-400); Red Blood Count 5.19 X10*6/uL (4.60-5.80); Red Cell Distribution Width 13.5 % (11.0-16.0)
[2022-06-27 12:26] LABS: COVID-19 Test Positive (Negative); IDNOW Serial# BCCEAD1C
[2022-06-27 12:34] LABS: IDNOW Serial# 9DB6401D; Influenza A Negative (Negative); Influenza B2 Negative (Negative)
[2022-06-27] MEDS: Ibuprofen 600 MG TABLET PO (12:37)
[2022-06-27] MEDS: Ondansetron ODT 4 MG TAB.RAPDIS TRANSLINGU (12:37)
[2022-06-27] MEDS: Acetaminophen 325 MG TABLET 975 MG PO (12:38)
--- NOTE | 2022-06-27 12:50 | PC.NURSE ---
Attempted to obtain IV. PT refused for another try, stated I'm a hard stick, I'm okay, I don't need one, just give me meds I can drink . Provider notified. PO meds given as documented.
[2022-06-27 13:39] VITALS: BP 131/97; PULSE 66; RESP 16; O2SAT 100
--- NOTE | 2022-06-27 13:44 | PC.NURSE ---
PT given crackers and tasha lance for PO trial.
--- NOTE | 2022-06-27 13:57 | PC.NURSE ---
Denies N/V after PO trial.
== END 2022-06-27 14:20 | disposition home or self-care (01) ==
PROVIDERS: Nurse Practitioner Family; Emergency Provider Emergency Medicine; PCP Internal Medicine Geriatric Medicine
DX: U07.1 COVID-19 (principal); R10.9 Unspecified abdominal pain; R05.9 Cough, unspecified; R11.2 Nausea with vomiting, unspecified; Z79.899 Other long term (current) drug therapy; F17.210 Nicotine dependence, cigarettes, uncomplicated; Z71.6 Tobacco abuse counseling
CPT/HCPCS: 71046; 85025; 87502; 87635; 99283; 99284

== ENCOUNTER 2022-09-06 18:15 | Emergency (ER) | payer OTHER, SELFPAY ==
--- NOTE | 2022-09-06 18:19 | ED.PSYCH ---
HPI - Psych General Chief Complaint: Psychiatric Symptoms <Brina Bellamy NP - Last Filed: 09/06/22 18:22> Stated Complaint: crisis <Brina Bellamy NP - Last Filed: 09/06/22 18:22> Time Seen by Provider: 09/06/22 18:28 <Brina Bellamy NP - Last Filed: 09/06/22 18:22> Source: patient <Shannen Marquez MD - Last Filed: 09/07/22 02:49> Mode of arrival: ambulatory <Shannen Marquez MD - Last Filed: 09/07/22 02:49> Limitations: no limitations <Shannen Marquez MD - Last Filed: 09/07/22 02:49> History of Present Illness HPI Narrative: Patient comes to the emergency room complaining of 5 days of feeling very anxious, paranoid, states that. he only takes the medications that he wants, is not taking other medications that he should be taking. Patient states that he is suicidal, wants to cut his wrists, denies homicidal ideation. Patient denies drug use. Patient admits to panic attacks <Shannen Marquez MD - Last Filed: 09/07/22 02:49> Related Data Home Medications: Home Medications Medication Instructions Recorded Confirmed methadone 10 mg/mL injection 35 mg 04/20/21 solution clonazepam 0.5 mg tablet 1 tab PO BID PRN Anxiety 09/06/22 09/06/22 gabapentin 100 mg capsule 2 cap PO BID 09/06/22 09/06/22 Previous Rx's Medication Instructions Recorded nicotine 21 mg/24 hr daily 21 mg transdermal DAILY #28 ea 05/03/21 transdermal patch <Brina Bellamy NP - Last Filed: 09/06/22 18:22> Allergies/Adverse Reactions: Allergies Allergy/AdvReac Type Severity Reaction Status Date / Time aspirin [ASA] AdvReac Unknown ABD UPSET Verified 04/26/22 10:25 <Brina Bellamy NP - Last Filed: 09/06/22 18:22> Review of Systems Review of Systems: Constitutional : No Weight loss, No Fever, No Chills, No Night Sweats, No Fatigue, No Malaise ENT/Mouth : No Hearing loss, No Ear Pain, No Nasal Congestion, No Sinus Pain, No Hoarseness, No sore throat, No Rhinorrhea, No Swallowing Difficulty Eyes: No Eye Pain, No Swelling, No Redness, No Foreign Body, No Discharge, No Vision Changes Cardiovascular : No Chest Pain, No SOB, No Dyspnea on Exertion, No Orthopnea, No Edema, No Palpitations Respiratory : No Cough, No Sputum, No Wheezing, No Smoke Exposure, No Dyspnea Gastrointestinal : No Nausea, No Vomiting, No Diarrhea, No Constipation, No abdominal Pain, No Hematochezia, No Melena Genitourinary : no irregular bleeding, No Dysuria, No Urinary Frequency, No Hematuria, No Urinary Incontinence, No Urgency, No Flank Pain, No Urinary Flow Changes, No Hesitancy Musculoskeletal : No joint pain, No Myalgias, No Joint Swelling Skin : No Skin Lesions, No rash Neuro : No Weakness, No Numbness, No Paresthesias, No Loss of Consciousness, N panic attacks, suicidal ideation, no homicidal ideation Dizziness, No Headache Psych : No Anxiety/Panic, No Depression, No SI/HI/AH/VH, No Social Issues, Heme/Lymph: No Bruising, No Bleeding,No Lymphadenopathy Endocrine : No Polyuria, No Polydipsia, No Temperature Intolerance <Shannen Marquez MD - Last Filed: 09/07/22 02:49> [facility] Past Medical History Medical History: Medical History ADHD Bipolar disorder Cocaine use disorder Opioid use disorder, severe, in early remission, on maintenance therapy PTSD (post-traumatic stress disorder) <Brina Bellamy NP - Last Filed: 09/06/22 18:22> Social History Social History: Social History Household Members: Other Household Members Other:: Roommates Housing: Other Housing Other:: Vague response when asked about living situation. Sober house? Homeless? Do you presently have visiting nurse or other home services: No Unable to assess alcohol history related to: Unknown Patient Tobacco Use Status: Current everyday Tobacco user Tobacco use type: Cigarette e-Cigarette/Vaping Use: Never Used Second Hand Smoke Exposure: Yes Substance Use Type: Crack/Cocaine, Heroin and Opiates Advance Directives: No Advance Directives Information Provided: No Healthcare Proxy: No Guardian: No service: No Sexual orientation: Straight/Heterosexual <Rbinayamilka Bellamy NP - Last Filed: 09/06/22 18:22> Physical Exam Vital Signs: Vital Signs: Last Vital Signs Temp 98.2 F 09/06/22 18:21 Pulse 72 09/06/22 18:21 Resp 18 09/06/22 18:21 BP 146/74 H 09/06/22 18:21 Pulse Ox 99 09/06/22 18:21 O2 Del Method 09/06/22 18:21 BMI result Body Mass Index 31.8 <Brina PranavAZUCENA reese - Last Filed: 09/06/22 18:22> Vital Signs: Last Vital Signs Temp 98.2 F 09/06/22 18:21 Pulse 72 09/06/22 18:21 Resp 18 09/06/22 18:21 BP 146/74 H 09/06/22 18:21 Pulse Ox 99 09/06/22 18:21 O2 Del Method 09/06/22 18:21 BMI result Body Mass Index 31.8 <Sahnnen Marquez MD - Last Filed: 09/07/22 02:49> Const: Other: Appearance: Alert. Oriented X3. No acute distress. Eyes: Pupils equal, round and reactive to light. ENT: Pharynx normal. Neck: Normal inspection. Neck supple. No lymph nodes noted. No crepitus CVS: Normal heart rate and rhythm. Pulses normal. Normal S1 and S2 Respiratory: No respiratory distress. Breath sounds normal. No Wheezing. No rales Abdomen: Soft and nontender. No rigidity. No distention. Skin: Skin warm and dry. Normal skin color. Normal skin turgor. Extremities: No lower extremity edema. No Lacerations. No Rash Neuro: Oriented X 3. No motor deficit. No sensory deficit. Moving all extremities. No slurred speech. CN 2 through 12 grossly intact Psych: calm, cooperative, anxious <Shannen Marquez MD - Last Filed: 09/07/22 02:49> Course Course Course Narrative: This is a rapid medical exam. deferred additional HPI, ROS, PE to primary provider. 32 yo male bipolar, PTSD, OUD, cocaine disorder, ADHD here with anxiety, not sleeping, diabolical thoughts , feels like he is going to hurt himself. +SI with plan to cut his wrists. No physical complaints. WIll obtain labs, GANDHI, COVID screen. patient to go direct to pod. <Brina Bellamy NP - Last Filed: 09/06/22 18:22> Medical Decision Making Medical Decision Making [facility] Narrative: -patient tested positive for benzodiazepines -care team saw the patient, they recommend Section 12 and inpatient bed search -physician observation started at 02:00 <Shannen Marquez MD - Last Filed: 09/07/22 02:49> Differential Diagnosis Differential Diagnoses: The differential diagnosis associated with the presentation includes (Suicidal ideation, anxiety, depression, bipolar disorder, substance abuse) <Shannen Marquez MD - Last Filed: 09/07/22 02:49> Admission/Observation Consideration of admission/observation: Escalation of care including admission/observation considered (Patient is on a Section 12, inpatient bed search) <Shannen Marquez MD - Last Filed: 09/07/22 02:49> Lab Data [facility] Lab Attestation statement: I reviewed the patient's lab results. <Shannen Marquez MD - Last Filed: 09/07/22 02:49> Result Diagrams: 09/06/22 19:59 <Brina Bellamy NP - Last Filed: 09/06/22 18:22> Labs: Lab Results 09/06/22 09/06/22 09/06/22 Range/Units 19:19 19:19 19:59 Sodium 139 (135-145) mmol/L Potassium 3.9 (3.3-5.1) mmol/L Chloride 104 (96-108) mmol/L Carbon Dioxide 27 (22-29) mmol/L Anion Gap 12 (12-20) BUN 13 (9-16) mg/dL Creatinine 0.84 (0.5-1.4) mg/dL Estim Creat Clear Calc 119.2 Estimated GFR > 60 Random Glucose 72 (60-115) mg/dL Calcium 9.7 (8.4-10.2) mg/dL Total Bilirubin 0.3 (0.0-1.0) mg/dL Direct Bilirubin < 0.2 (0.0-0.5) mg/dL AST 21 (5-37) U/L ALT 24 (0-40) U/L Alkaline Phosphatase 136 H (39-117) U/L Total Protein 7.3 (6.5-8.0) g/dL Albumin 4.4 (3.5-5.0) g/dL Salicylates < 5.0 L (15-30) mg/dL Urine Opiates Screen Not Detected (Not Detect) Urine Fentanyl Screen Not Detected (Not Detect) Acetaminophen < 17 (<30) mcg/mL Ur Barbiturates Screen Not Detected (Not Detect) Ur Phencyclidine Scrn Not Detected (Not Detect) Ur Amphetamines Screen Not Detected (Not Detect) U Benzodiazepines Scrn POSITIVE H (Not Detect) [place] (0.60-1.20) mmol/L Urine Cocaine Screen Not Detected (Not Detect) U Marijuana (THC) Screen Not Detected (Not Detect) Ethyl Alcohol < 10 mg/dL COVID-19 (OZ) Negative (Negative) COVID-19 Clin Com See Note 09/06/22 Range/Units 20:00 Sodium (135-145) mmol/L Potassium (3.3-5.1) mmol/L Chloride (96-108) mmol/L Carbon Dioxide (22-29) mmol/L Anion Gap (12-20) BUN (9-16) mg/dL Creatinine (0.5-1.4) mg/dL Estim Creat Clear Calc Estimated GFR Random Glucose (60-115) mg/dL Calcium (8.4-10.2) mg/dL Total Bilirubin (0.0-1.0) mg/dL Direct Bilirubin (0.0-0.5) mg/dL AST (5-37) U/L ALT (0-40) U/L Alkaline Phosphatase (39-117) U/L Total Protein (6.5-8.0) g/dL Albumin (3.5-5.0) g/dL Salicylates (15-30) mg/dL Urine Opiates Screen (Not Detect) Urine Fentanyl Screen (Not Detect) Acetaminophen (<30) mcg/mL Ur Barbiturates Screen (Not Detect) Ur Phencyclidine Scrn (Not Detect) Ur Amphetamines Screen (Not Detect) U Benzodiazepines Scrn (Not Detect) [place] < 0.10 L (0.60-1.20) mmol/L Urine Cocaine Screen (Not Detect) U Marijuana (THC) Screen (Not Detect) Ethyl Alcohol mg/dL COVID-19 (OZ) (Negative) COVID-19 Clin Com <Brina Rockcucci, [employer] - Last Filed: 09/06/22 18:22> Lab Results 09/06/22 09/06/22 09/06/22 Range/Units 19:19 19:19 19:59 Sodium 139 (135-145) mmol/L Potassium 3.9 (3.3-5.1) mmol/L Chloride 104 (96-108) mmol/L Carbon Dioxide 27 (22-29) mmol/L Anion Gap 12 (12-20) BUN 13 (9-16) mg/dL Creatinine 0.84 (0.5-1.4) mg/dL Estim Creat Clear Calc 119.2 Estimated GFR > 60 Random Glucose 72 (60-115) mg/dL Calcium 9.7 (8.4-10.2) mg/dL Total Bilirubin 0.3 (0.0-1.0) mg/dL Direct Bilirubin < 0.2 (0.0-0.5) mg/dL AST 21 (5-37) U/L ALT 24 (0-40) U/L Alkaline Phosphatase 136 H (39-117) U/L Total Protein 7.3 (6.5-8.0) g/dL Albumin 4.4 (3.5-5.0) g/dL Salicylates < 5.0 L (15-30) mg/dL Urine Opiates Screen Not Detected (Not Detect) Urine Fentanyl Screen Not Detected (Not Detect) Acetaminophen < 17 (<30) mcg/mL Ur Barbiturates Screen Not Detected (Not Detect) Ur Phencyclidine Scrn Not Detected (Not Detect) Ur Amphetamines Screen Not Detected (Not Detect) U Benzodiazepines Scrn POSITIVE H (Not Detect) [place] (0.60-1.20) mmol/L Urine Cocaine Screen Not Detected (Not Detect) U Marijuana (THC) Screen Not Detected (Not Detect) Ethyl Alcohol < 10 mg/dL COVID-19 (OZ) Negative (Negative) COVID-19 Clin Com See Note 09/06/22 Range/Units 20:00 Sodium (135-145) mmol/L Potassium (3.3-5.1) mmol/L Chloride (96-108) mmol/L Carbon Dioxide (22-29) mmol/L Anion Gap (12-20) BUN (9-16) mg/dL Creatinine (0.5-1.4) mg/dL Estim Creat Clear Calc Estimated GFR Random Glucose (60-115) mg/dL Calcium (8.4-10.2) mg/dL Total Bilirubin (0.0-1.0) mg/dL Direct Bilirubin (0.0-0.5) mg/dL AST (5-37) U/L ALT (0-40) U/L Alkaline Phosphatase (39-117) U/L Total Protein (6.5-8.0) g/dL Albumin (3.5-5.0) g/dL Salicylates (15-30) mg/dL Urine Opiates Screen (Not Detect) Urine Fentanyl Screen (Not Detect) Acetaminophen (<30) mcg/mL Ur Barbiturates Screen (Not Detect) Ur Phencyclidine Scrn (Not Detect) Ur Amphetamines Screen (Not Detect) U Benzodiazepines Scrn (Not Detect) [place] < 0.10 L (0.60-1.20) mmol/L Urine Cocaine Screen (Not Detect) U Marijuana (THC) Screen (Not Detect) Ethyl Alcohol mg/dL COVID-19 (OZ) (Negative) COVID-19 Clin Com <Shannen Marquez MD - Last Filed: 09/07/22 02:49> Discharge Plan Discharge Clinical Impression: Suicidal ideation, Acute anxiety <Brina Bellamy NP - Last Filed: 09/06/22 18:22> Patient Disposition: Still a Patient <Brina Bellamy NP - Last Filed: 09/06/22 18:22> Prescriptions: No Action methadone 10 mg/mL Solution 35 mg Rx Instructions: [facility] plan to titrate. Dose started at 30 mg daily and increased by increments of 5 mg every 3 days to a dose of 55 mg daily. nicotine 21 mg/24 hr Patch 24 Hour 21 mg transdermal DAILY Qty: 28 0RF clonazepam 0.5 mg tablet 1 tab PO BID PRN (Reason: Anxiety) gabapentin 100 mg capsule 2 cap PO BID <Brina Bellamy NP - Last Filed: 09/06/22 18:22>
[2022-09-06 18:21] VITALS: BP 146/74; PULSE 72; RESP 18; TEMP 36.8; O2SAT 99; BMI 31.8
[2022-09-06 19:37] LABS: Amphetamine Screen Urine Not Detected (Not Detect); Barbiturates, Urine Not Detected (Not Detect); Benzodiazepines Screen Urine POSITIVE (Not Detect); Cannabinoid Screen Urine Not Detected (Not Detect); Cocaine Screen Urine Not Detected (Not Detect); Fentanyl, urine Not Detected (Not Detect); Opiate Screen Urine Not Detected (Not Detect); Phencyclidine Screen Urine Not Detected (Not Detect)
[2022-09-06 19:42] LABS: COVID-19 Test Negative (Negative); IDNOW Serial# 55D5AD1C
[2022-09-06 20:22] LABS: Lithium < 0.10 mmol/L (0.60-1.20)
[2022-09-06 20:29] LABS: Acetaminophen LAB < 17 mcg/mL (<30); Alanine Aminotransferase 24 U/L (0-40); Albumin Level 4.4 g/dL (3.5-5.0); Alkaline Phosphatase 136 U/L (39-117); Anion Gap 12 (12-20); Aspartate Amino Transferase 21 U/L (5-37); Bilirubin Direct < 0.2 mg/dL (0.0-0.5); Bilirubin Total 0.3 mg/dL (0.0-1.0); Blood Urea Nitrogen 13 mg/dL (9-16); Calcium 9.7 mg/dL (8.4-10.2); Carbon Dioxide 27 mmol/L (22-29); Chloride 104 mmol/L (96-108); Creatinine Clr Calc Pharmacy 119.2; Estimated Glomerular Filt Rate > 60; Ethanol < 10 mg/dL; Glucose Random 72 mg/dL (60-115); Potassium 3.9 mmol/L (3.3-5.1); Salicylate < 5.0 mg/dL (15-30); Sodium 139 mmol/L (135-145); Total Protein 7.3 g/dL (6.5-8.0)
[2022-09-07 06:01] VITALS: BP 103/55; PULSE 51; RESP 15; TEMP 37.2; O2SAT 98
--- NOTE | 2022-09-07 07:25 | HE.PHANOTE ---
Methadone Verification Pharmacy has received methadone verification from [facility]. Patient last received methadone 80 mg on 09/06 @ 0800 [facility]. Confirmed with clay on the clinic. Selina Zhou, GeorginaD
--- NOTE | 2022-09-07 10:45 | MHC.CARE ---
Patient accepted to [facility] inpatient psychiatric unit, CARE Team obtaining authorization.
[2022-09-07 11:16] VITALS: BP 122/74; PULSE 54; RESP 17; TEMP 36.5; O2SAT 99
[2022-09-07 11:37] LABS: MANUAL DIFF FLAG NO
[2022-09-07 11:40] LABS: Basophils Absolute Auto 0.1 X10*3/uL (0.0-0.2); Basophils Percent Auto 1.3 % (0-2); Eosinophils Absolute Auto 0.2 X10*3/uL (0.0-0.4); Eosinophils Percent Auto 3.7 % (0-4); Hematocrit 43.8 % (42.0-52.0); Hemoglobin 14.3 g/dl (14.0-18.0); Imm Gran Abs Auto 0.01 X10*3/uL (0.00-0.03); Imm Gran Pct Auto 0.2 % (0.0-0.4); Lymphocytes Absolute Auto 1.7 X10*3/uL (1.2-4.9); Lymphocytes Percent Auto 30.2 % (20-40); Mean Corpuscular HGB Conc 32.6 g/dl (31.0-36.0); Mean Corpuscular Hemoglobin 29.4 pg (27.0-33.0); Mean Corpuscular Volume 90.1 fL (80.0-98.0); Mean Platelet Volume 10.3 fL (9.4-12.4); Monocytes Absolute Auto 0.3 X10*3/uL (0.1-1.2); Monocytes Percent Auto 4.8 % (2-11); Neutrophils Absolute Auto 3.3 x10*3/uL (2.0-8.3); Neutrophils Percent Auto 59.8 % (45-73); Platelet Count 298 X10*3/uL (160-400); Red Blood Count 4.86 X10*6/uL (4.60-5.80); Red Cell Distribution Width 13.1 % (11.0-16.0); White Blood Count 5.5 X10*3/uL (4.8-10.8)
[2022-09-07] MEDS: methADONE HCl 20 MG/2 ML ORAL.CONC 80 MG PO (13:20)
[2022-09-07] MEDS: Gabapentin 100 MG CAPSULE 200 MG PO (13:20)
[2022-09-07] MEDS: clonazePAM 0.5 MG TABLET PO (13:21)
--- NOTE | 2022-09-07 13:22 | PC.NURSE ---
pt medicated per provider order, declined nicotine patch, ambulance in ED for transport to [facility], pt changed over and belongings returned.
== END 2022-09-07 13:35 ==
PROVIDERS: Nurse Practitioner Family; Emergency Provider Emergency Medicine; PCP Internal Medicine Geriatric Medicine
DX: F41.1 Generalized anxiety disorder (principal); F43.0 Acute stress reaction; R45.851 Suicidal ideations; Z20.822 Contact with and (suspected) exposure to COVID-19; Z20.828 Contact with and (suspected) exposure to other viral communicable diseases; F17.210 Nicotine dependence, cigarettes, uncomplicated; Z71.6 Tobacco abuse counseling; Z79.899 Other long term (current) drug therapy
CPT/HCPCS: 36415; 80048; 80076; 80143; 80178; 80179; 80307; 82077; 85025; 87635; 99284; 99285; S9485

== ENCOUNTER 2023-01-31 09:15 | Outpatient (RCR) | payer OTHER, SELFPAY ==
[2023-01-25 10:31] VITALS: BP 117/86; PULSE 72; TEMP 36.9
[2023-01-25 10:35] VITALS: BMI 38.4
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
--- NOTE | 2023-01-25 15:25 | HO.PHP ---
Clients case was reviewed and opened today in treatment team.
--- NOTE | 2023-01-26 13:14 | HO.PHP ---
PHP staff met with Carlos and thanked him for trying to attend program today even when not feeling well. PHP staff suggested that he goes home for the day since he is unwell, coughing, and having a challenging time staying awake. PHP staff stated we want him to get rest and be able to engage effectively within the groups. Carlos voiced that he is not sick. PHP noted that in the first group he talked about not being able to breathe and having hot/cold sweats. PHP staff also stated that he disclosed taking medication and having coffee which made him feel a little better. Carlos mentioned that it was his normal medication he takes every morning. Carlos asked why he had to leave if he is feeling better. PHP staff talked about limiting the spread of illnesses and trying to keep group members from getting ill since we are in an inclosed space. PHP staff talked about COVID being present still and taking precautions. Carlos was receptive and asked for the staff members name. PHP staff provided her name.
[2023-01-26 13:56] LABS: Amphetamine Screen Urine Not Detected (Not Detect); Barbiturates, Urine Not Detected (Not Detect); Benzodiazepines Screen Urine POSITIVE (Not Detect); Cannabinoid Screen Urine Not Detected (Not Detect); Cocaine Screen Urine Not Detected (Not Detect); Fentanyl, urine Not Detected (Not Detect); Opiate Screen Urine Not Detected (Not Detect); Phencyclidine Screen Urine Not Detected (Not Detect)
--- NOTE | 2023-01-31 15:21 | HO.PHP ---
[facility] staff reached out to [facility] OP therapist to inform her of his discharge. [facility] staff is awaiting a return phone call back if there are any questions.
--- NOTE | 2023-02-01 13:50 | PC.NURSE ---
Patient discharged from [facility] on 01/31/23. Patient reports he is ready for discharge. Patient denies SI with no plan or intent. Patient denies HI. Reviewed discharge plan including discharge medications. Patient states he understands with no questions or concerns. Discharge plan including list of discharge medications faxed to out patient prescribers.
== END 2023-01-31 23:59 | disposition home or self-care (01) ==
LOC: HO.PHPA 09:15
PROVIDERS: Clinical Nurse Specialist Psychiatric/Mental Health; Visit Provider Psychiatry & Neurology Psychiatry
DX: F31.9 Bipolar disorder, unspecified (principal); F43.10 Post-traumatic stress disorder, unspecified; F11.21 Opioid dependence, in remission
CPT/HCPCS: 80307; 90791; 90853

== ENCOUNTER 2023-10-18 12:21 | Emergency (ER) | payer OTHER, SELFPAY ==
--- NOTE | ~2023-10-18 | CT_ITS ---
EXAMINATION: CT ABDOMEN AND PELVIS WITH CONTRAST CLINICAL INFORMATION: Right lower quadrant pain. COMPARISON: 05/20/2022 TECHNIQUE: Multidetector volumetric images were obtained from the superior aspect of the liver through the pubic symphysis following administration 85 mL of Omnipaque 350 intravenous contrast. Sagittal and coronal reformatted images were obtained on the technologist's workstation. Oral contrast: No This CT examination was performed using dose optimization techniques as appropriate, variously including the following: *Automated exposure control *Adjustment of mA and/or kV according to patient size (this includes techniques or standardized protocols for targeted exams where dose is matched to indication/reason for exam; i.e. extremities or head) *Use of iterative reconstruction technique DLP: 652 mGy-cm FINDINGS: LUNG BASES: The visualized lung bases are unremarkable. LIVER, GALLBLADDER, AND BILIARY TREE: The liver is decreased in attenuation. No focal hepatic lesion or biliary ductal dilatation is present. The gallbladder is unremarkable with no evidence of radiopaque gallstones, gallbladder wall thickening, or obvious pericholecystic inflammatory changes. PANCREAS: Fatty infiltration. No ductal dilatation. SPLEEN: Not enlarged. ADRENAL GLANDS: No adrenal mass. KIDNEYS AND URETERS: The kidneys are symmetric in size and enhancement. No hydronephrosis or perinephric stranding. BLADDER: Underdistended. GASTROINTESTINAL TRACT: Small and large bowel loops are of normal caliber. No small bowel obstruction. Marked fecal retention in the colon. Appendix is within normal limits. ABDOMINAL WALL: No significant hernia is appreciated. LYMPH NODES: No bulky lymphadenopathy. VASCULAR: Normal caliber abdominal aorta. PELVIC VISCERA: Unremarkable. OSSEOUS STRUCTURES: No destructive bone lesions. CT/CT abdomen pelvis w IV con IMPRESSION: No acute abnormality in the abdomen or pelvis.
[2023-10-18 12:24] VITALS: BP 137/80; PULSE 78; RESP 18; TEMP 36.6; O2SAT 99; BMI 35.1
--- NOTE | 2023-10-18 12:26 | ED.GENADULT ---
HPI - General Adult General Chief complaint: Abdominal Pain Stated complaint: Abd pain 3 days Time Seen by Provider: 10/18/23 13:28 Source: patient Mode of arrival: ambulatory Limitations: no limitations History of Present Illness HPI narrative: Patient is a 33-year-old male presenting to the emergency department with complaint of right lower quadrant abdominal pain for the past 3 days which has progressively worsened. He reports nausea but denies vomiting, diarrhea. Does report constipation, states last normal bowel movement was 3 days ago. Denies dysuria, frequency hematuria or other urinary complaints. Denies fevers. Denies prior abdominal surgeries. MD complaint: RLQ abdominal pain Onset (ago): day(s) Location: abdomen Radiation: non-radiation Severity: severe Quality: aching Pain Consistency: constant Relieving factors: none Exacerbating factors: none Associated symptoms: nausea/vomiting (reports nausea denies vomiting) Treatments prior to arrival: none Related Data Home Medications Medication Instructions Recorded Confirmed gabapentin 100 mg capsule 2 cap PO BID 09/06/22 01/25/23 clonazepam 1 mg tablet 1 mg PO BID PRN Nicotine Cravings 01/25/23 01/25/23 methadone 10 mg/mL oral concentrate 80 mg PO DAILY 01/25/23 01/25/23 nicotine (polacrilex) 4 mg gum 4 mg PO Q2H PRN Nicotine Cravings 01/25/23 01/25/23 risperidone 1 mg tablet 1 mg PO BID PRN Anxiety 01/25/23 01/25/23 zolpidem 5 mg tablet 5 mg PO BEDTIME PRN Insomnia 01/25/23 01/25/23 Previous Rx's Medication Instructions Recorded oxcarbazepine 300 mg tablet 300 mg PO BEDTIME #10 tabs 01/25/23 (Trileptal) docusate sodium 100 mg capsule 100 mg PO BID constipation 7 days 10/18/23 #14 caps ondansetron 4 mg disintegrating 4 mg PO Q8H PRN nausea and 10/18/23 tablet vomiting #6 tabs polyethylene glycol 3350 17 gram 17 g PO DAILY constipation 14 days 10/18/23 oral powder packet #14 ea sennosides 8.6 mg tablet (Natural 8.6 mg PO BID PRN constipation 7 10/18/23 Senna Laxative) days #14 tabs Allergies Allergy/AdvReac Type Severity Reaction Status Date / Time aspirin [ASA] AdvReac Unknown ABD UPSET Verified 10/18/23 12:24 Review of Systems Review of Systems: As per HPI. Yes all other systems are reviewed and are negative Constitutional: Constitutional: Reports as per HPI [facility] Past Medical History Medical History ADHD Bipolar disorder Cocaine use disorder Opioid use disorder, severe, in early remission, on maintenance therapy PTSD (post-traumatic stress disorder) Social History Social History Household Members: Other Household Members Other:: Sober House Housing: Other Housing Other:: Vague response when asked about living situation. Sober house? Homeless? Do you presently have visiting nurse or other home services: No Unable to assess alcohol history related to: Unknown Patient Tobacco Use Status: Former Tobacco user Tobacco use type: Cigarette e-Cigarette/Vaping Use: Never Used Second Hand Smoke Exposure: Yes Substance Use Type: Crack/Cocaine, Heroin and Opiates Advance Directives: No service: No Sexual orientation: Straight/Heterosexual Physical Exam ED Vital Signs: Vital Signs - 24 hr 10/18/23 12:24 Temperature 97.9 F Pulse Rate 78 Respiratory Rate 18 Blood Pressure 137/80 Pulse Oximetry 99 Oxygen Delivery Method Room Air BMI result Body Mass Index 35.1 Vital signs have been reviewed and appear to be correct. Blood pressure normal. Heart rate normal. Respiratory rate normal. Temperature normal. Oxygen saturation normal. Const General: cooperative, healthy appearing and no acute distress Orientation/consciousness: oriented to person, oriented to place, oriented to time and patient oriented x3 Limitations: no limitations [facility] Head: Yes normocephalic and Yes atraumatic Ears: external ears normal General nose exam: Normal external nose present Face and sinus: Yes face symmetric Mouth: oropharynx normal and moist mucous membranes Throat: Yes uvula midline Eyes Pupils: Equal, round and reactive pupils present Neck Neck: Yes normal visual inspection and Yes supple Resp Effort & Inspection: normal respiratory effort and able to speak in complete sentences Auscultation: clear to auscultation bilaterally Cardio Rate: regular rate Rhythm: regular rhythm Heart sounds: S1 normal heart sound present and S2 normal heart sound present GI Inspection: Yes normal to inspection Palpation (GI): Soft to palpation, Tenderness to palpation present (GI) in the RLQ, no guarding and No Rebound tenderness present Auscultation: normoactive bowel sounds General: Yes no CVA tenderness Back/Spine/Pelvis Back: no CVA tenderness Skin General skin exam: elasticity normal and turgor normal Neuro General: oriented to person, oriented to place, oriented to time, patient oriented x3, moves all extremities, no focal motor deficits and CN's II-XI intact bilaterally Cranial nerves: Yes Equal, round and reactive pupils present Cognition (Neuro): normal cognition Extrem General: Yes full ROM, Yes no pedal edema and Yes no calf tenderness Psych Mental Status: mental status grossly normal Affect: normal affect Thought process: Normal thought process present Course Course Course Narrative: This is an RME: Additional HPI, ROS, PE not included below will be deferred to primary provider. 33 yo m hx bipolar d/o, ptsd, opiate ue d/o, cocaine use d/o, adhd presents w/ RLQ pain X 3 days worsening. Still has appendix. Pain was intermittent now constant. 10/ pain. Plan- labs, urine Medications Administered Discontinued Medications Generic Name Dose Route Start Last Admin Trade Name Samantha PRN Reason Stop Dose Admin Iohexol 100 ml 10/18/23 14:24 10/18/23 14:25 Iohexol 350 Mg/Ml 100 Ml Infus..Btl IV 10/18/23 14:25 85 ml ONCE ONE Administration Ketorolac Tromethamine 15 mg 10/18/23 14:23 10/18/23 14:38 Ketorolac Tromethamine 15 Mg/Ml Vial IVPUSH 10/18/23 14:24 15 mg ONCE ONE Administration Ondansetron HCl 4 mg 10/18/23 14:23 10/18/23 14:38 Ondansetron Hcl 4 Mg/2 Ml Vial IVPUSH 10/18/23 14:24 4 mg ONCE ONE Administration Medical Decision Making Medical Decision Making [facility] Narrative: Patient is a 33-year-old male presenting to the emergency department with complaint of right lower quadrant abdominal pain for the past 3 days which has progressively worsened. On exam patient is awake, A+Ox3, VS WNL, afebrile, normal neurological exam without focal deficits, physical exam findings as above. Given reported symptoms and physical exam findings, initial differential includes appendicitis, constipation, UTI, renal/ureteral calculi. Labs unremarkable. No evidence of infection on urinalysis. CT notable for significant stool burden, no other concerning findings. My interpretation is in agreement with the radiologist's interpretation. Results discussed with patient and all questions answered. Feel patient is stable for discharge home at this time with Miralax, senna, and colace. Will also prescribe Zofran at patient request. Instructed patient to follow up with PCP. Return precautions discussed at bedside. Patient verbalized understanding of and agreement with plan. Differential Diagnosis Differential Diagnoses: The differential diagnosis associated with the presentation includes As per MDM. Admission/Observation Consideration of admission/observation: Escalation of care including admission/observation considered Patient would have been admitted to the hospital had their work up had any findings where hospital admission was appropriate and their clinical presentation warranted hospital admission. Lab Data [facility] Lab Attestation statement: I reviewed the patient's lab results. As per MDM. 10/18/23 12:35 10/18/23 12:35 Labs: Lab Results 10/18/23 10/18/23 Range/Units 12:35 13:32 WBC 7.0 (4.8-10.8) X10*3/uL RBC 4.71 (4.60-5.80) X10*6/uL Hgb 13.6 L (14.0-18.0) g/dl Hct 42.0 (42.0-52.0) % MCV 89.2 (80.0-98.0) fL MCH 28.9 (27.0-33.0) pg MCHC 32.4 (31.0-36.0) g/dl RDW 13.3 (11.0-16.0) % Plt Count 304 (160-400) X10*3/uL MPV 9.7 (9.4-12.4) fL Immature Gran % (Auto) 0.4 (0.0-0.4) % Neut % (Auto) 57.2 (45-73) % Lymph % (Auto) 31.4 (20-40) % [place] % (Auto) 5.6 (2-11) % Eos % (Auto) 4.4 H (0-4) % Baso % (Auto) 1.0 (0-2) % Lymph # (Auto) 2.2 (1.2-4.9) X10*3/uL [place] # (Auto) 0.4 (0.1-1.2) X10*3/uL Eos # (Auto) 0.3 (0.0-0.4) X10*3/uL Baso # (Auto) 0.1 (0.0-0.2) X10*3/uL Abs Immat Gran (auto) 0.03 (0.00-0.03) X10*3/uL Absolute Neuts (auto) 4.0 (2.0-8.3) x10*3/uL Absolute Nucleated RBC 0.000 (0.0-0.012) X10*3/uL Nucleated RBC % (auto) 0.0 (0.0-0.2) /100WBC Sodium 140 (135-145) mmol/L Potassium 4.5 (3.3-5.1) mmol/L Chloride 102 (96-108) mmol/L Carbon Dioxide 28 (22-29) mmol/L Anion Gap 15 (12-20) BUN 10 (9-16) mg/dL Creatinine 0.80 (0.5-1.4) mg/dL Estim Creat Clear Calc 134.8 Estimated GFR > 60 Random Glucose 90 (60-115) mg/dL Calcium 9.5 (8.4-10.2) mg/dL Magnesium 2.0 (1.6-2.6) mg/dL Total Bilirubin 0.4 (0.0-1.0) mg/dL AST 20 (5-37) U/L ALT 23 (0-40) U/L Alkaline Phosphatase 130 H (39-117) U/L Total Protein 7.5 (6.5-8.0) g/dL Albumin 4.2 (3.5-5.0) g/dL Lipase 11 (8-78) U/L Urine Color Dark Yellow Urine Appearance Clear Urine pH 7.0 (5.0-9.0) Ur Specific [place] 1.025 (1.005-1.025) Urine Protein Negative (Neg-Trace) mg/dL Urine Glucose (UA) Negative (Negative) mg/dL Urine Ketones Negative (Negative) mg/dL Urine Blood Negative (Negative) Urine Nitrite Negative (Negative) Ur Leukocyte Esterase Negative (Negative) Independent Interpretation I performed an independent interpretation of an: CT Scan Interpretation: Significant stool burden, no other concerning findings on abdominal CT Radiology Impression Discussion of test interpretation with radiology: I have reviewed the radiologist's reading. Radiologist Impression: CT/CT abdomen pelvis w IV con IMPRESSION: No acute abnormality in the abdomen or pelvis. External Record Review External record reviewed: Inpatient record, Office record and Outpatient record Prescription Management I considered prescription management with: Other Discharge Plan Discharge Clinical Impression: Constipation, Abdominal pain Patient Disposition: Home, Self-Care Instructions: Constipation (DC), High Fiber Diet (ED), Acute Abdominal Pain (DC) Additional Instructions: You were evaluated in the emergency department today for abdominal pain. Your CT scan showed evidence of constipation. Your labs and urinalysis were normal. You are being prescribed medications for constipation, please take these as prescribed. You are being prescribed Zofran for nausea. Please follow-up with your primary care provider. Return to the emergency department if you develop increasing pain, persistent vomiting, fever or any other concerning symptoms. Prescriptions: New ondansetron 4 mg tablet,disintegrating 4 mg PO Q8H PRN (Reason: nausea and vomiting) Qty: 6 0RF polyethylene glycol 3350 17 gram powder in packet 17 g PO DAILY 14 Days Qty: 14 0RF sennosides [Natural Senna Laxative] 8.6 mg tablet 8.6 mg PO BID PRN (Reason: constipation) 7 Days Qty: 14 0RF docusate sodium 100 mg capsule 100 mg PO BID 7 Days Qty: 14 0RF No Action gabapentin 100 mg capsule 2 cap PO BID clonazepam 1 mg tablet 1 mg PO BID PRN (Reason: Nicotine Cravings) nicotine (polacrilex) 4 mg gum 4 mg PO Q2H PRN (Reason: Nicotine Cravings) zolpidem 5 mg tablet 5 mg PO BEDTIME PRN (Reason: Insomnia) methadone 10 mg/mL Concentrate 80 mg PO DAILY Patient Comments: Confirmed dose with [facility] Antonella AHUJA. Patient received 6 take home bottles on 01/25/23. risperidone 1 mg tablet 1 mg PO BID PRN (Reason: Anxiety) oxcarbazepine [Trileptal] 300 mg tablet 300 mg PO BEDTIME Qty: 10 0RF
[2023-10-18 12:46] LABS: MANUAL DIFF FLAG NO
[2023-10-18 12:48] LABS: Basophils Absolute Auto 0.1 X10*3/uL (0.0-0.2); Eosinophils Absolute Auto 0.3 X10*3/uL (0.0-0.4); Eosinophils Percent Auto 4.4 % (0-4); Hemoglobin 13.6 g/dl (14.0-18.0); Imm Gran Abs Auto 0.03 X10*3/uL (0.00-0.03); Imm Gran Pct Auto 0.4 % (0.0-0.4); Lymphocytes Absolute Auto 2.2 X10*3/uL (1.2-4.9); Lymphocytes Percent Auto 31.4 % (20-40); Mean Corpuscular HGB Conc 32.4 g/dl (31.0-36.0); Mean Corpuscular Hemoglobin 28.9 pg (27.0-33.0); Mean Corpuscular Volume 89.2 fL (80.0-98.0); Mean Platelet Volume 9.7 fL (9.4-12.4); Monocytes Absolute Auto 0.4 X10*3/uL (0.1-1.2); Monocytes Percent Auto 5.6 % (2-11); Neutrophils Percent Auto 57.2 % (45-73); Platelet Count 304 X10*3/uL (160-400); Red Blood Count 4.71 X10*6/uL (4.60-5.80); Red Cell Distribution Width 13.3 % (11.0-16.0)
[2023-10-18 13:02] LABS: Alanine Aminotransferase 23 U/L (0-40); Albumin Level 4.2 g/dL (3.5-5.0); Alkaline Phosphatase 130 U/L (39-117); Anion Gap 15 (12-20); Aspartate Amino Transferase 20 U/L (5-37); Bilirubin Total 0.4 mg/dL (0.0-1.0); Blood Urea Nitrogen 10 mg/dL (9-16); Calcium 9.5 mg/dL (8.4-10.2); Carbon Dioxide 28 mmol/L (22-29); Chloride 102 mmol/L (96-108); Creatinine Clr Calc Pharmacy 134.8; Estimated Glomerular Filt Rate > 60; Glucose Random 90 mg/dL (60-115); Lipase 11 U/L (8-78); Potassium 4.5 mmol/L (3.3-5.1); Sodium 140 mmol/L (135-145); Total Protein 7.5 g/dL (6.5-8.0)
[2023-10-18 13:41] LABS: Appearance Urine Clear; Color Urine Dark Yellow; Glucose Urine UA Negative (Negative); Leukocyte Esterase Urine Negative (Negative); Nitrite Urine Negative (Negative); Specific Gravity - Urine 1.025 (1.005-1.025); Urine Blood Negative (Negative); Urine Ketones Negative (Negative); Urine Protein Negative (Neg-Trace)
--- NOTE | 2023-10-18 14:08 | ECG_ITS ---
Test Reason : MED CLEARANCE Blood Pressure : / mmHG Vent. Rate : 077 BPM Atrial Rate : 077 BPM P-R Int : 166 ms QRS Dur : 086 ms QT Int : 394 ms P-R-T Axes : 021 -03 004 degrees QTc Int : 445 ms Normal sinus rhythm Normal ECG When compared with ECG of 25-APR-2021 15:48, No significant change was found Referred By: Naty Roach Electronically Signed By:PREETHI DORSEY MD
[2023-10-18] MEDS: iohexoL 350 MG/ML 100 ML INFUS..BTL IV (14:25)
[2023-10-18] MEDS: Ketorolac Tromethamine 15 MG/ML VIAL IVPUSH (14:38)
[2023-10-18] MEDS: ondansetron HCL 4 MG/2 ML VIAL IVPUSH (14:38)
[2023-10-18 16:54] VITALS: BP 137/80; PULSE 78; RESP 18; TEMP 36.6; O2SAT 99
== END 2023-10-18 16:55 | disposition home or self-care (01) ==
PROVIDERS: Physician Assistant; Emergency Provider Emergency Medicine; PCP Internal Medicine Geriatric Medicine
DX: K59.00 Constipation, unspecified (principal); R10.31 Right lower quadrant pain; R11.0 Nausea; Z79.899 Other long term (current) drug therapy
CPT/HCPCS: 36415; 74177; 80053; 81003; 83690; 83735; 85025; 93005; 96374; 96375; 99284; J1885; J2405; Q9967